=== PATIENT | female | born 1945 | race Caucasian/White ===

== ENCOUNTER 2016-12-31 12:30 | Inpatient (IN) ==
[2016-12-31] MEDS ORDERED: PHENERGAN IV ONE (12:46)
[2016-12-31] MEDS ORDERED: SODIUM CHLORIDE 0.9% INJ ONE ×2 (12:46)
[2016-12-31] MEDS ORDERED: PROTONIX IV ONE (12:46)
[2016-12-31 13:08] LABS: BASO% 0.1 % (0.0-0.8); HEMATOCRIT 39.5 % (37.0-47.0); HEMOGLOBIN 12.7 g/dL (12.0-16.0); IMM GRAN# 0.07 X1000 (0.0-0.04); IMM GRAN% 0.3 % (0.0-0.5); LYMPH# 1.57 X1000 (1.2-3.4); LYMPH% 6.3 % (20.5-51.1); MANUAL DIFF NEEDED? NO; MCH 34.6 PG (27-31); MCHC 32.2 g/dL (33-37); MCV 107.6 FL (81-99); MONO# 1.07 X1000 (0.11-0.59); MONO% 4.3 % (1.7-9.3); MPV 11.4 FL (7.4-10.4); PLT 184 X1000 (130-400); RBC 3.67 XMIL (4.2-5.4)
[2016-12-31 13:20] LABS: ALBUMIN 3.5 g/dL (3.5-5.0); CALCIUM 8.6 mg/dL (8.8-10.2); MAGNESIUM 1.9 mg/dL (1.5-2.7); POTASSIUM 4.1 mmol/L (3.5-5.1); TOTAL BILIRUBIN 0.3 mg/dL (0.20-1.00); TOTAL PROTEIN 6.9 g/dL (6.3-8.3)
--- NOTE | 2016-12-31 13:24 | PROVIDER DOCUMENTATION ---
HPI-Abdominal Pain/GI Problem - General Chief Complaint: N/V/D Stated Complaint: RLQ PAIN Time Seen by Provider: 12/31/16 12:34 Source: patient Allergies/Adverse Reactions: Patient Allergies Allergy/AdvReac Type Severity Reaction Status Date / Time No Known Allergies Allergy Verified 12/31/16 12:56 Home Medications: Home Medication List Medication Instructions Recorded Confirmed Last Taken Type Alprazolam [Xanax] 0.5 mg PO TID 05/17/16 07/04/16 07/03/16 21:00 History Aspirin 81 mg PO DAILY 05/17/16 07/04/16 07/03/16 09:00 History Citalopram Hydrobromide [Celexa] 10 mg PO DAILY 05/17/16 07/04/16 07/03/16 09: 00 History Clopidogrel Bisulfate [Plavix] 75 mg PO DAILY 05/17/16 07/04/16 07/03/16 09:00 History Docusate Sodium [Colace] 100 mg PO DAILY 05/17/16 07/04/16 07/03/16 09:00 History Folic Acid 1 mg PO DAILY 05/17/16 07/04/16 07/03/16 09:00 History Hydrocodone/APAP 7.5 mg/325 mg 2 tab PO Q8H PRN PRN 05/17/16 07/04/16 06/09/16 05:00 History [[place]-7.5] Lactobacillus Rhamnosus GG 1 each PO DAILY 05/17/16 07/04/16 07/03/16 09:00 History [Probiotic] Metoprolol Tartrate 12.5 mg PO BID 05/17/16 07/04/16 07/03/16 21:00 History Midodrine HCl 5 mg PO TID 05/17/16 07/04/16 07/03/16 21:00 History Pravastatin Sodium 40 mg PO HS 05/17/16 07/04/16 07/03/16 21:00 History Trazodone HCl 50 mg PO HS 05/17/16 07/04/16 07/03/16 21:00 History Nut.tx.impaired Renal Fxn,Soy 237 ml PO DIRECTED 06/10/16 07/04/16 07/03/16 09:00 History [Nepro Carb Steady] - History of Present Illness-ABD Nature of Presenting Problems: 71 yo WF complains of several days of N/V and diarrhea. She has ESRD and was dialyzed yesterday. They prescribed some medication which improved her diarrhea and nausea. She comes in today because she has developed epigastric pain now despite some moderate improvement in nausea/diarrhea. Abdominal Pain Onset Location: reports: epigastric Pain Radiation: reports: no radiation Quality of Pain: reports: aching, fullness, sharp Severity in ED: reports: moderate Timing: reports: still present Activities at Onset: reports: none Exposure to sick contacts?: No Modifying Factors: worse with: coughing, eating, movement Associated Symptoms: reports: diarrhea, nausea. denies: anxiety, chest pain, constipation, cough, shortness of breath Last BM: unsure Dark Stools Present?: reports: none noticed Rectal Bleeding: denies: none Emesis Description: denies: red blood, coffee grounds Bruising or Bleeding Gums?: No Similar Symptoms Previously?: No Recently seen or treated by another doctor?: Yes Review of Systems - Adult - REVIEW OF SYSTEMS - ADULT Constitutional: reports: no symptoms reported Eyes: reports: no symptoms reported Ears, Nose, Mouth & Throat: reports: no symptoms reported Cardiovascular: reports: no symptoms reported Respiratory: reports: no symptoms reported Gastrointestinal: reports: abdominal pain, diarrhea, nausea, poor appetite, vomiting. denies: hematemesis, constipation Genitourinary: reports: no symptoms reported Musculoskeletal: reports: no symptoms reported Integumentary: reports: no symptoms reported Neurological: reports: no symptoms reported Past History - Adult - PAST MEDICAL HISTORY-ADULT Review of Records: reports: Old Records Reviewed, Nursing Assessment Review, Medications Reviewed, Social history reviewed & non-contributory. Major Childhood Illnesses: reports: denies history Cardiovascular: reports: HTN Respiratory: reports: COPD Gastrointestinal: reports: GERD, IBS, other (gastritis) Obstetrical/Gynecological: reports: other (breast cancer/ left mastectomy) Genitourinary: reports: dialysis (MWF), ESRD, kidney disease Musculoskeletal: reports: arthritis, other (gout) Neurological: reports: other (metabolic encephalopathy) Endocrine/Immune: reports: anemia Other Conditions: reports: denies history - PRIOR SURGERIES/PROCEDURES Surgical/Procedure History: reports: cholecystectomy, other (mastectomy left with reconstruction) - PRIOR HOSPITALIZATIONS Prior Hospitalizations: reports: none - IMMUNIZATION STATUS Childhood Immunizations: See Nurse Assessment Flu Vaccine: See Nurse Assessment - FAMILY HISTORY Family History: reviewed, not pertinent - SOCIAL HISTORY Smoking: denies Substance Use: none/never Alcohol Use Frequency: never Living Situation: care facility Physical Exam-General - PHYSICAL EXAM-ADULT Initial Vital Signs Reviewed: Yes - CONSTITUTIONAL General Appearance: no apparent distress, obese - EYES Eyes: PERRL/EOMI - HEAD, EARS, NOSE, MOUTH & THROAT HENMT: normocephalic/atraumatic, moist mucous membranes, normal ENT inspection - NECK Neck: non-tender - RESPIRATORY Respiratory: lungs clear, normal breath sounds, no pleuratic chest pain, no respiratory distress, no accessory muscle use - CARDIOVASCULAR Cardiovascular: normal peripheral pulses, regular rate, rhythm, no edema - GASTROINTESTINAL (ABDOMEN) Abdominal Exam: normal bowel sounds, guarding, tenderness. negative: rigid - MUSCULOSKELETAL Back Exam: normal inspection, no CVA tenderness, no vertebral tenderness Extremity: no pedal edema, no calf tenderness - SKIN Integumentary: normal color, normal turgor - NEUROLOGIC Neurologic: grossly normal - PSYCHIATRIC Psych/Mental Status: normal mood/affect, normal thought content, normal thought process, oriented x 3 Progress - PLAN OF CARE/RESULTS Progress/Plan/Lab Results: Vital Signs - 8 hr 12/31/16 12:46 Pulse Rate 72 Respiratory Rate 14 Blood Pressure 109/55 O2 Sat by Pulse Oximetry 94 L Laboratory Results - last 24 hr 12/31/16 12:39 WBC 24.93 H RBC 3.67 L Hgb 12.7 Hct 39.5 MCV 107.6 H MCH 34.6 H MCHC 32.2 L RDW Std Deviation 14.4 Plt Count 184 MPV 11.4 H Immature Gran % (Auto) 0.3 Neut % (Auto) 89.0 H Lymph % (Auto) 6.3 L [place] % (Auto) 4.3 Eos % (Auto) 0.0 Baso % (Auto) 0.1 Immature Gran # (Auto) 0.07 H Neut # (Auto) 22.20 H Lymph # (Auto) 1.57 [place] # (Auto) 1.07 H Eos # (Auto) 0.00 Baso # (Auto) 0.02 Orders Category Date Time Status AMYLASE [CHEM] Stat Lab 12/31/16 12:39 Received CBC WITH ELECTRONIC DIFF [HEME] Stat Lab 12/31/16 12:39 Completed COMPREHENSIVE METABOLIC PANEL [CHEM] Stat Lab 12/31/16 12:39 Received LIPASE [CHEM] Stat Lab 12/31/16 12:39 Received MAGNESIUM [CHEM] Stat Lab 12/31/16 12:39 Received phos [PHOSPHORUS] [CHEM] Stat Lab 12/31/16 12:39 Received Pantoprazole [Protonix] Med 12/31/16 12:46 Discontinued 40 mg IV NOW ONE Promethazine [Phenergan] Med 12/31/16 12:46 Discontinued 12.5 mg IV NOW ONE Sodium Chloride 0.9% Med 12/31/16 12:46 Discontinued 10 ml INJ NOW ONE Sodium Chloride 0.9% Med 12/31/16 12:46 Discontinued 10 ml INJ NOW ONE Result Diagrams: 12/31/16 12:39 12/31/16 12:39 - CT/MRI 1 CT Study: Abdomen, Pelvis Impression: Abnormal, Discussed w/Radiology CT Results: ischemic gut Departure - Departure Time of Disposition Decision: 15:28 DIAGNOSIS: Ischemic colitis, Renal failure, ESRD (end stage renal disease) on dialysis Abdominal pain Qualifiers: Abdominal location: epigastric Qualified Code(s): R10.13 - Epigastric pain Disposition: ADMITTED INPATIENT 09 Certified Medical Emergency: Emergent Condition: Serious Referrals and Follow-Ups: None,PCP [Primary Care Provider] - - Critical Care Note This patient required my direct & personal management of CC.: No
--- NOTE | 2016-12-31 15:12 | Diag Imaging Result Document ---
PROCEDURE NAME: ABDOMEN/PELVIS W/O CONTRAST - 12/31/2016 CT ABDOMEN AND PELVIS WITHOUT CONTRAST: COMPARISON: None available. FINDINGS: There is bibasilar atelectasis plus or minus superimposed infiltrate , more prominent on the right. There is wall thickening and extensive inflammatory stranding associated with the ascending colon and the hepatic flexure consistent with colitis. At the proximal transverse colon, there is evidence of pneumatosis coli. There is [id number] distention of the transverse colon with a few small air-fluid levels. There is no small bowel distention. These findings suggests colitis. Ischemic colitis cannot be excluded. There is also a gas seen mainly in the left hepatic lobe that is probably in portal venous branches related to the pneumatosis mentioned above. Both kidneys are very atrophic. Note that this has worsened as compared to a previous CT of the chest dated 12/24/2015. There is patchy moderate atherosclerotic calcification involving the abdominal aorta. There appears to have been a prior cholecystectomy. No free abdominal gas is identified. The remainder of the solid viscera of the abdomen and pelvis and the remainder of the GI tract is essentially unremarkable. IMPRESSION: 1. Thickening of the ascending colon wall as well as the hepatic flexure wall with surrounding inflammatory changes as well as pneumatosis coli involving the proximal transverse colon compatible with colitis. Ischemic colitis cannot be excluded. 2. Intrahepatic gas that may be in portal branches and probably related to the pneumatosis coli mentioned above. 3. Bibasilar atelectasis plus or minus superimposed infiltrate. 4. Renal atrophy that has worsened since the prior chest CT that is fairly recent. This critical result was reported to Dr. Abraham in the Emergency Department at 1449 hours. [facility]
[2016-12-31] MEDS ORDERED: ZOSYN 2.25 GM/NS 2.25 GM/50 ML IVPB IV SCH (16:00)
[2016-12-31] MEDS ORDERED: NS 500 ML ONE (16:38)
[2016-12-31 16:46] LABS: ALLEN TEST NO; BE -1.7 mmoll (-3.0-3.0); BLOOD TYPE ARTERIAL; DRAW SITE L BRACHIAL; O2(CT) 16.3 mL/dL (15.0-23.0); SAMPLE BLOOD; SAO2 96.6 % (95.0-100.0); THB 12.1 g/dL (11.5-17.4); pH(98.6) 7.29 (7.35-7.45)
[2016-12-31 16:48] LABS: MODALITY CANNULA; PCO2(98.6) 53 mmHg (35-45)
[2016-12-31 16:49] LABS: PO2(98.6) 105 mmHg (60-100)
[2016-12-31] MEDS: MERREM 500 MG in NS 50 ML IV SCH (16:50)
[2016-12-31] MEDS ORDERED: ALBUMIN 25% ONE (17:42)
--- NOTE | 2016-12-31 17:45 | HISTORY AND PHYSICAL ---
PRIMARY CARE PHYSICIAN: SYEDA Juarez. CHIEF COMPLAINT: Abdominal pain. HISTORY OF PRESENT ILLNESS: Mrs. Marino is a very pleasant 71-year-old female, well known to our service, she has a history of breast cancer, COPD, ESRD, COPD, and others, who presents on from her [facility] with a fairly acute onset of abdominal pain that began yesterday evening. She describes a very sharp right upper quadrant pain that is unrelenting and radiating to her back. This is associated with vomiting. She denies any fever or chills. She has had no chest pain or shortness of breath. She also reports some diarrhea but denies any hematemesis or hematochezia. The pain brought her to the ER today. In the ER, she was noted to have a white count of 24 with a creatinine of 5.6. A CT of the abdomen and pelvis showed pneumatosis coli involving the proximal transverse colon compatible with colitis. There was intrahepatic gas in the portal branches and probably related to pneumatosis coli, and there is also bibasilar atelectasis plus or minus superimposed infiltrate. We have consulted Dr. Jovel with General Surgery. He was at the bedside now and we have obtained blood cultures, and we will start broad- spectrum antibiotics and keep the patient n.p.o. Currently she is hemodynamically stable but we will be placing her in the ICU. PAST MEDICAL HISTORY: 1. ESRD on hemodialysis, followed by Dr. Hollingsworth. 2. COPD. 3. Anemia of chronic disease. 4. Dementia. 5. Breast cancer. 6. Colon cancer. 7. Anxiety. 8. GERD. 9. Gout. 10. History of CVA. SURGICAL HISTORY: She has had a hysterectomy, cholecystectomy, left breast biopsy, left upper extremity fistula, left mastectomy, right ankle surgery. FAMILY HISTORY: Noncontributory. ALLERGIES: No known drug allergies. SOCIAL HISTORY: There is no history of tobacco, alcohol or drug use. She is a resident of a local [facility]. ALLERGIES: No known drug allergies. HOME MEDICATIONS: Xanax 0.5 mg as directed. Aspirin 81 mg daily. Citalopram 10 mg daily. Clopidogrel 75 mg daily. Colace 100 mg daily. Folic acid 1 mg daily. Switchback 15 mg every 8 hours as needed for pain. Lactobacillus every day. Metoprolol tartrate 12.5 mg b.i.d. Midodrine 5 mg 3 times daily. Pravastatin 40 mg at bedtime. Trazodone 50 mg at bedtime. REVIEW OF SYSTEMS: A 14 point review of systems obtained and found to be negative with the exception of the HPI. PHYSICAL EXAMINATION: VITAL SIGNS: Blood pressure is 125/69, heart rate 78, respiratory rate 16, O2 saturations 99% on room air. GENERAL: This is an obese female, lying in hospital bed, in no acute distress. NEUROLOGIC: The patient is a little bit drowsy from pain medication and antiemetics but she does follow commands. No focal deficits. HEENT: Head is atraumatic and normocephalic. Her pupils are equal, round, and reactive to light. Oral mucosa is moist. Trachea is midline. CHEST: Clear to auscultation bilaterally. CV: Regular rate and rhythm. S1-S2 is noted. No murmurs, gallops, clicks, or rubs. GI: Diffusely tender in the right upper quadrant. Her belly is somewhat firm. Bowel sounds are hypoactive. EXTREMITIES: Trace edema. Diminished but palpable bilateral pulses. DIAGNOSTIC DATA: CT of the abdomen: Please see HPI. WBC 24.5, hemoglobin 12.7, hematocrit 39.5, MCV 107.6, platelet count 184,000. ABG on nasal cannula; pH 7.29, CO2 53, O2 105, bicarb 23.6, lactate 0.9. Sodium 134, potassium 4.1, chloride 92, CO2 23, anion gap 19, BUN 45, creatinine 5.6, glucose 132, phosphorus 2.4, magnesium 1.9. Bilirubin 0.3, AST 23, ALT 17, alkaline phosphatase 112, albumin 3.5, lipase 8. ASSESSMENT AND PLAN: 1. Colitis/pneumatosis coli/pneumobilia: There is a concern for ischemic colitis. We have obtained blood cultures and lactic acid and those are currently pending. We will start meropenem, and Surgery has already been consulted and is currently at the bedside. We will keep her n.p.o. and transfer her to the ICU. 2. Leukocytosis: No other evidence of systemic infection at this time. However we will start broad-spectrum antibiotics and culture her blood and sputum. 3. End stage renal disease on hemodialysis: Followed by Dr. Hollingsworth. We will consult him for ESRD management and help with general medical management. Currently, her hemoglobin and hematocrit is stable. She is slightly acidotic but overall stable. 4. Macrocytosis: We will check B12, folate and thyroid and treat accordingly. 5. Deep venous thrombosis with SCDs and TEDs given the likelihood of surgery. Further recommendations to follow. Dictated by SYEDA Jain for Constantino Briscoe MD cc: SYEDA Jain MD
[2016-12-31 17:53] LABS: INR 1.04; PROTIME 10.9 Seconds (9.2-11.7)
--- NOTE | 2016-12-31 18:49 | CONSULTATION ---
DATE OF CONSULTATION: 12/31/2016 REQUESTING PHYSICIAN: Dr. Clemons. CONSULT CONCERNING: Possible ischemic bowel. HISTORY OF PRESENT ILLNESS: A 71-year-old female with multiple medical comorbidities presenting with abdominal pain starting several days ago. She came to the ER today with increasing epigastric pain. She is somewhat altered and it is difficult to get a full history of the details but it sounds like this has been going on for several days. Did discuss her course with her son Dr. Marino, who said that she is more altered and she does not complain of significant amount of pain, said she has been hurting for several days. She was evaluated in emergency department, had a CT scan that showed pneumobilia and pneumatosis and intestinalis concerning for ischemic colon and her blood pressure was in the 80s systolic in the emergency department and she was acidotic on ABG. When I evaluated the patient she is still reporting pain but again unable to give further history given her altered mental status. PAST MEDICAL HISTORY: Includes end-stage renal disease, COPD, anemia of chronic disease, history of colon cancer, history of breast cancer, history anxiety disorder, gastroesophageal reflux disease, gout, dementia, recent myocardial infarction with stents placed, hypertension. PAST SURGICAL HISTORY: Includes cholecystectomy, left mastectomy with what appears to be rectus abdominis muscle reconstruction, left upper extremity AV fistula, hysterectomy, right ankle surgery. FAMILY HISTORY: Positive for hypertension, alcohol abuse, stroke and breast cancer. ALLERGIES: None reported. HOME MEDICATIONS: Xanax, aspirin, Celexa, Plavix, Colace, folic acid, [place], probiotic, metoprolol, midodrine, pravastatin, trazodone. REVIEW OF SYSTEMS: Difficult to obtain secondary to patient's mental status. PHYSICAL EXAM: Vital Signs: The patient is currently afebrile. Most recent heart rate was in the 80s, most recent blood pressure in the 90s systolic, O2 saturation 100% on 2 L nasal cannula, respiratory rate nonlabored at 14. General: No acute distress but appears to be uncomfortable but is slightly altered in her mental status. HEENT: Normocephalic, atraumatic. Pupils equal, round, reactive to light. Mucous membranes moist. Oropharynx benign. Neck: Supple. Trachea midline. Cardiovascular: Regular rate and rhythm. Lungs: Grossly clear. Abdomen: Soft. Peritoneal signs in the right upper quadrant on the right side. Previous surgical scars noted. Extremities: Palpable left upper extremity AV graft noted with flow through it. Remainder of extremities within normal limits. Vascular: All extremities perfused. Skin: No signs of jaundice. LABORATORY: White blood cell count 24, hematocrit 39, platelet count 184,000. ABG pH is 7.29, CO2 is 53, bicarb 23, lactic acid 0.9. Chemistry reviewed. CT scan independently reviewed and radiology report reviewed. Patient does have what appears to be pneumatosis intestinalis and pneumobilia concerning for ischemic colon on the right side of the ascending colon. ASSESSMENT AND PLAN: A 71-year-old female with multiple medical comorbidities presenting now with peritoneal signs, potential developing sepsis and possible ischemic bowel. 1. Multiple medical comorbidities. At this time, patient is to be admitted postoperatively to the ICU. She is being admitted by the hospitalist. I had a lengthy discussion with her son [place], who understands the risk for perioperative morbidity and mortality given her risk and she has got recent myocardial infarction on Plavix, chronic obstructive pulmonary disease and dialysis. This does complicate her overall clinical picture but given her peritoneal signs and overall picture she does need surgical intervention. He understands this. 2. Potential for developing sepsis. At this time patient is acidotic, has leukocytosis and is hypotensive. She is to be resuscitated and we are planning on taking her to the operating room. 3. Possible ischemic bowel. At this time CT scan is concerning. Her physical exam is concerning. Her white blood cell count being elevated with her acidosis is concerning. She is on a beta-brennan which may limit her rebound tachycardia given her hypotension. Overall her morbidity from this procedure is relatively high. Discussed with the son. She has also had previous abdominal surgery with a TRAM flap which makes potential for herniae also elevated. Discussed with the patient's son that she may need ileostomy. Discussed all these with the risks, benefits, alternatives for the procedure. Will plan on surgical intervention. cc: Stevo Jovel MD
[2016-12-31 19:02] LABS: URINE SOURCE CATH
[2016-12-31 19:12] LABS: BILIRUBIN URINE NEGATIVE (NEGATIVE); BLOOD URINE MODERATE (NEGATIVE); COLOR BROWN; GLUCOSE URINE NEGATIVE (NEGATIVE); LEUKOCYTES URINE LARGE (NEGATIVE); NITRITE URINE NEGATIVE (NEGATIVE); PH URINE 6.5; PROTEIN URINE 300 mg/dL (NEGATIVE); SP GRAVITY URINE 1.017; TURBIDITY URINE TURBID (CLEAR); UR EPITHELIAL CELLS >10 /HPF (<10); URINE BACTERIA 4+ /HPF; URINE MICRO REVIEW NEEDED? YES; URINE WBC TNTC /HPF (<10); UROBILINOGEN URINE NORMAL (NORMAL)
[2016-12-31 19:13] LABS: URINE CASTS NONE SEEN
[2016-12-31 20:16] LABS: ALLEN TEST YES; BE -3.3 mmoll (-3.0-3.0); BLOOD TYPE ARTERIAL; DRAW SITE R RADIAL; METHB 0.2 % (0.0-1.5); O2(CT) 14.8 mL/dL (15.0-23.0); PCO2(98.6) 35 mmHg (35-45); PO2(98.6) 365 mmHg (60-100); SAMPLE BLOOD; SAO2 95.4 % (95.0-100.0); SRATE 12 BPM; THB 10.3 g/dL (11.5-17.4); TVOL 500 mL; pH(98.6) 7.39 (7.35-7.45)
[2016-12-31 20:17] LABS: MODALITY VENTILATOR
[2016-12-31] MEDS ORDERED: VERSED ONE (20:24)
--- NOTE | 2016-12-31 20:28 | OPERATIVE NOTE ---
PROCEDURE DATE: 12/31/2016 PREOPERATIVE DIAGNOSES: 1. Abdominal pain. 2. Pneumatosis intestinalis. 3. Portal venous gas. POSTOPERATIVE DIAGNOSIS: Ischemic transverse colon. PROCEDURES: 1. Exploratory laparotomy. 2. Extended right hemicolectomy with end ileostomy. SURGEON: Stevo Jovel MD. POWER BRAKE OPERATOR: None. ANESTHESIA: General endotracheal. INTRAOPERATIVE FINDINGS: Ischemia of the hepatic flexure to the transverse colon. COMPLICATIONS: None at time of dictation. ESTIMATED BLOOD LOSS: 100 mL. SPECIMENS REMOVED: Right colon. BRIEF HISTORY: The patient is a 71-year-old female with multiple medical comorbidities who presented with a 24 hour history of abdominal pain. She had been evaluated in the emergency department and found to have a potential for ischemic bowel. She was developing a sepsis like picture and it was felt the patient would benefit from exploratory laparotomy. Discussed extensively with the family. All questions were answered. DESCRIPTION OF PROCEDURE: After informed consent was obtained, patient was brought to the operative theatre, transferred to operating table, placed in supine position. General endotracheal anesthesia was then performed without complication. A formal time- out was then performed confirming patient, date, and procedure. All were in agreement. At that time, attention was given to the abdomen. The patient did have a previous TRAM flap which made her abdominal landmarks slightly altered. We made a standard midline incision through her abdominal wall to enter into the abdomen. Upon entry into the abdomen, we did encounter some ischemia of the transverse colon. We mobilized the transverse colon of the right colon completely by mobilizing the white line of [place] on the lateral wall. There was ischemia in the transverse colon with some patchy areas of ischemia all way to the hepatic flexure. The ischemia extended beyond the middle colic on the right. Given her tenuous hemodynamic status. We elected to resect her whole right colon and not to place an anastomosis. We transected the small bowel 5 cm in vivo from the ileocecal valve and transected the colon distal to the ischemic areas which was also distal to the middle colic artery. We used a SWATHI stapler for this. We then used the LigaSure to take down the mesentery of the colon. Once we had done this, we maintained hemostasis with electrocautery. We reviewed the remaining aspects of the abdomen including the splenic flexure. There appeared to be no other areas of ischemia that we could see. We irrigated out the abdomen copiously. We closed the fascia although it was very tenuous given her previous TRAM flap with interrupted Vicryl sutures. Prior to closure, we did create an ostomy just to the right lower quadrant for the ileum. This was made 2 fingerbreadths in size. We made sure the bowel was not twisted. We had to reclose the abdomen. We made it into the lateral border of the rectus. We made it two finger breadths in diameter. We brought the terminal ileum through the hole without twisting it. After we had closed the midline completely, we matured the ostomy and broke the ileostomy in a standard fashion. The patient had sterile dressings applied. Ostomy appliance applied. She was transferred back to the ICU still in critical condition. Postoperatively, we will monitor her closely. She will likely need to continue her Plavix given the fact that she had a recent drug-eluting stent placed. This will likely have to be placed through her NG tube. cc: Stevo Jovel MD MTDD
[2016-12-31] MEDS ORDERED: ASPIRIN PR ONE (20:47)
--- NOTE | 2016-12-31 20:52 | Diag Imaging Result Document ---
PROCEDURE NAME: CHEST/ABD TUBE PLACEMENT - 12/31/2016 COMPARISON: Chest radiograph dated 06/09/2016. FINDINGS: There is a recently placed ET tube and NG tube. The NG tube projects well below the diaphragm and appears to be coiled within the stomach in the expected position. The ET tube projects over the trachea and above the vijaya at about the T4 level. The lungs are over exposed limiting the diagnostic quality for evaluation of the lung parenchyma. IMPRESSION: Recent placement of ET tube and NG tube in the expected positions as described.
[2016-12-31 21:04] LABS: BASO% 0.1 % (0.0-0.8); EOS# 0.05 X1000 (0.0-0.7); EOS% 0.3 % (0.0-10.0); HEMATOCRIT 40.5 % (37.0-47.0); HEMOGLOBIN 12.9 g/dL (12.0-16.0); IMM GRAN# 0.05 X1000 (0.0-0.04); IMM GRAN% 0.3 % (0.0-0.5); LYMPH# 1.97 X1000 (1.2-3.4); MANUAL DIFF NEEDED? YES; MCH 34.8 PG (27-31); MCHC 31.9 g/dL (33-37); MCV 109.2 FL (81-99); MONO# 1.11 X1000 (0.11-0.59); MONO% 5.6 % (1.7-9.3); MPV 11.3 FL (7.4-10.4); NEUT% 83.7 % (42.2-75.2); PLT 151 X1000 (130-400); RBC 3.71 XMIL (4.2-5.4)
[2016-12-31 21:39] LABS: BANDS 20 % (0-1); LYMPHS 6 % (21-51); MONO 4 % (1-9)
[2016-12-31 21:42] LABS: POTASSIUM 3.6 mmol/L (3.5-5.1)
[2016-12-31] MEDS: DIPRIVAN 1% 1,000 MG/100 ML BOTTLE IV SCH (22:00)
[2016-12-31] MEDS ORDERED: NS 250 ML ONE (22:21)
[2016-12-31] MEDS ORDERED: NS 250 ML IV ONE (22:21)
[2016-12-31] MEDS: MORPHINE IV PRN (23:00)
[2016-12-31] MEDS: LEVOPHED 8 MG in D5 1/2 NS 250 ML IV SCH (23:09)
[2017-01-01] MEDS ORDERED: DILAUDID IV ONE (00:15)
[2017-01-01] MEDS ORDERED: NS 500 ML IV ONE (00:16)
[2017-01-01] MEDS: MERREM 500 MG in NS 50 ML IV SCH ×3 (00:52→15:55)
[2017-01-01] MEDS: DIPRIVAN 1% 1,000 MG/100 ML BOTTLE IV SCH ×5 (02:31→19:13)
[2017-01-01] MEDS: LEVOPHED 8 MG in D5 1/2 NS 250 ML IV SCH ×5 (04:08→23:10)
[2017-01-01 04:39] LABS: ALLEN TEST YES; BE -2.4 mmoll (-3.0-3.0); BLOOD TYPE ARTERIAL; DRAW SITE R RADIAL; O2(CT) 14.8 mL/dL (15.0-23.0); PCO2(98.6) 29 mmHg (35-45); PO2(98.6) 183 mmHg (60-100); SAMPLE BLOOD; SAO2 98.9 % (95.0-100.0); SRATE 12 BPM; THB 10.4 g/dL (11.5-17.4); TVOL 500 mL; pH(98.6) 7.46 (7.35-7.45)
[2017-01-01 04:44] LABS: MODALITY VENTILATOR
[2017-01-01 05:55] LABS: CALCIUM 8.1 mg/dL (8.8-10.2); POTASSIUM 3.4 mmol/L (3.5-5.1)
[2017-01-01 06:03] LABS: BASO% 0.2 % (0.0-0.8); EOS# 0.06 X1000 (0.0-0.7); EOS% 0.3 % (0.0-10.0); HEMATOCRIT 31.7 % (37.0-47.0); HEMOGLOBIN 10.4 g/dL (12.0-16.0); IMM GRAN# 0.04 X1000 (0.0-0.04); IMM GRAN% 0.2 % (0.0-0.5); LYMPH# 2.12 X1000 (1.2-3.4); LYMPH% 11.8 % (20.5-51.1); MANUAL DIFF NEEDED? YES; MCH 34.7 PG (27-31); MCHC 32.8 g/dL (33-37); MCV 105.7 FL (81-99); MONO# 0.93 X1000 (0.11-0.59); MONO% 5.2 % (1.7-9.3); MPV 11.8 FL (7.4-10.4); NEUT% 82.3 % (42.2-75.2); PLT 183 X1000 (130-400)
[2017-01-01] MEDS: NS 1,000 ML IV SCH ×2 (06:58→19:10)
[2017-01-01 07:51] LABS: BANDS 7 % (0-1); LYMPHS 11 % (21-51); MONO 3 % (1-9)
--- NOTE | 2017-01-01 08:08 | PROGRESS NOTE ---
DATE: 01/01/2017 SUBJECTIVE: The patient required Levophed through the course of the night. She has remained intubated on the ventilator. She has also had some boluses of Diprivan to keep her sedated. They are having difficultly to access for IV, so I placed a central line. OBJECTIVE: Vital Signs: Most recent temperature 98.5, most recent pulse 53, most recent respiratory rate 16, blood pressure 99/53. She currently had Levophed given. O2 saturation 100% on the ventilator. General examination: Sedated on the ventilator. Cardiovascular: Regular rate and rhythm. Lungs: Referred airway noises. Abdomen: Soft, nondistended. Ostomy appears viable with weeping noted. LABORATORY: This morning her white blood cell count is 19, hematocrit is 31.7, platelet count 183,000. ASSESSMENT AND PLAN: A 71-year-old female, status post open right hemicolectomy. Postoperative state at this time, she is still requiring some intermittent Levophed. I did place a central line to help with her IV resuscitation. She is end-stage renal disease patient who takes dialysis and Nephrology has been consulted. We have also started her on Plavix down her NG tube. Cardiology has been consulted. She does have a recently placed drug-eluting stent. We will continue to monitor her closely. Continue current treatment. Continue antibiotics as prescribed. cc: Stevo Jovel MD
--- NOTE | 2017-01-01 08:13 | OPERATIVE NOTE ---
PROCEDURE DATE: 01/01/2017 PREOPERATIVE DIAGNOSES: 1. Hypertension. 2. Phlebosclerosis. POSTOPERATIVE DIAGNOSES: 1. Hypertension. 2. Phlebosclerosis. PROCEDURES: Ultrasound-guided right common femoral vein central line placement. SURGEON: Stevo Jovel MD. HAND SCREEN PRINTER: None. ANESTHESIA: Local, administered by the surgeon. INTRAOPERATIVE FINDINGS: Ultrasound showed a size common femoral vein on the right side sufficient to accommodate a central line. BRIEF HISTORY: The patient is a 71-year-old female, who I performed exploratory laparotomy on last night. She has been hypotensive and requires IV resuscitation. She also needed better IV access. It is felt that the patient would benefit from a central line placement. The risks, benefits, and alternatives were discussed. All questions answered. DESCRIPTION OF PROCEDURE: After informed consent was obtained from the son, the patient remained in her ICU bed. The right groin was prepped and draped sterile fashion. I used ultrasound to identify the right common femoral vein. Used local anesthetic to anesthetize the skin. I was able to cannulate under direct visualization with ultrasound the right common femoral vein. I passed a wire into it easily, dilated up using the Seldinger technique and placed a central line. All ports aspirated and flushed the blood easily. I secured it in place in a standard fashion. Placed a sterile dressing. The patient tolerated procedure well. Will remain in her ICU bed. cc: Stevo Jovel MD MTDD
[2017-01-01] MEDS: PLAVIX NG SCH (08:53)
[2017-01-01] MEDS: POTASSIUM CHLORIDE 20 MEQ/SWI 20 MEQ/100 ML IVPB IV SCH ×2 (08:53→10:37)
--- NOTE | 2017-01-01 09:19 | Diag Imaging Result Document ---
PROCEDURE NAME: CHEST-PORTABLE - 01/01/2017 SINGLE FRONTAL RADIOGRAPH OF THE CHEST: COMPARISON: 12/31/2016. FINDINGS: ET tube and NG tube are in stable position. Lung volumes are low and there is mild elevation of the right hemidiaphragm. There is suggestion of increased interstitial markings bilaterally suggesting perhaps mild interstitial edema. There is probably at least mild atelectasis at the right lung base. Cardiac silhouette is probably mildly prominent but stable. IMPRESSION: Mild increased interstitial markings bilaterally suggesting mild edema most likely and suggestion of right basilar atelectasis.
--- NOTE | 2017-01-01 11:56 | PROGRESS NOTE ---
DATE: 01/01/2017 SUBJECTIVE: This patient is on mechanical ventilation and sedated. No acute events overnight. She is on pressors because her blood pressure has been low. Yesterday, this patient had an exploratory laparotomy with extended right hemicolectomy with end ileostomy. OBJECTIVE: Vital Signs: Temperature 98.7 degrees, pulse on the monitor 63, respiratory rate 20, blood pressure 114/63, oxygen saturation 100% on mechanical ventilation 50% oxygen flow. HEENT: Head normocephalic. No trauma. PERRLA. Neck: Supple. No JVD. No masses. Central trachea. Chest: Clear to auscultation. No wheezing. No rales. Abdomen: Soft. Ileostomy on the right side that is working fine. Nondistended. Extremities: Trace edema. Diminished pulses but palpable. No cyanosis. Neurological Examination: The patient is on mechanical ventilation and sedated. Laboratory: WBC 17.9, hemoglobin 10, hematocrit 31.7, MCV 105.7, platelets 183,000. Sodium 136, potassium 3.4, chloride 102, bicarbonate 18, BUN 47, creatinine 5.6, glucose 130, calcium 8.1. ASSESSMENT AND PLAN: 1. Ischemic transverse colon, status post exploratory laparotomy with extended right hemicolectomy, with end ileostomy done yesterday. Abdomen looks fine. The ileostomy is working good. No distention. We will continue following the recommendations of the surgery department. 2. Leukocytosis. This is getting a little bit better. I will continue with the same antibiotics. Blood cultures, urine culture, and sputum culture so far negative. 3. Septic shock. Again, I will continue with the same management. This patient is on pressors and antibiotics. 4. End-stage renal disease, on hemodialysis. Followed by Dr. Hollingsworth. He has been consulted. We will follow his recommendations. 5. Macrocytosis. We will monitor. This is chronic. 6. Deep vein thrombosis prophylaxis. Continue with sequential compression devices and АНДРЕЙ hose. Probably, I will put this patient on anticoagulation either today in the afternoon or tomorrow morning, previous authorization of surgery department. cc: Constantino Briscoe MD
[2017-01-01] MEDS ORDERED: ALBUMIN 25% IV ONE (12:42)
[2017-01-01] MEDS ORDERED: VANCOMYCIN IV PER PHARMACY MISC SCH (13:45)
--- NOTE | 2017-01-01 14:54 | CONSULTATION ---
DATE OF CONSULTATION: 01/01/2017 REASON FOR CONSULTATION: Cardiology was consulted. Patient has known coronary artery disease, stent placement in the past, multiple medical problems, is on pressors, intubated. HISTORY OF PRESENT ILLNESS: History was obtained from the chart as patient is intubated and sedated. The patient is a 71-year-old lady who is Annabel Dickson's mother, has history of breast cancer, COPD, end-stage renal disease, coronary artery disease, status post stent placement to left anterior descending artery in February 2016. She presented to the emergency room with abdominal discomfort, underwent abdominal surgery for ischemic bowel and she had extended right hemicolectomy with end ileostomy for ischemic transverse colon on 12/31/2016. She is currently intubated, requiring pressors. Blood cultures are positive for gram positive cocci. REVIEW OF SYSTEMS: Could not be obtained from the patient. PAST MEDICAL HISTORY: 1. Coronary artery disease, status post stent placement to left anterior descending artery in February 2016. 2. COPD. 3. End-stage renal disease on dialysis. 4. Dementia. 5. Breast cancer. 6. Colon cancer. 7. Anxiety. 8. Gastroesophageal reflux disease. 9. Gout 10. History of CVA. PAST SURGERIES: Left breast biopsy, left upper extremity fistula, left mastectomy, right ankle surgery. CURRENT MEDICATIONS: Include Levophed drip, propofol, morphine, meropenem, Plavix 75, hydromorphone. ALLERGIES: She is not known to be allergic to any medication. PHYSICAL EXAMINATION: Vital signs: Blood pressure was 108/80. Jugular venous pressure could not be assessed. Heart: First and second heart sounds were heard. There was ejection systolic murmur. First and second heart sounds were heard. Lungs: There was few scattered wheeze. Abdomen: Recent abdominal surgery. Central nervous system: Could not be assessed. LABORATORY EXAMINATION: Revealed WBC 17.92, hemoglobin 10, hematocrit 31, platelet count of 183,000. Sodium 136, potassium 3.4, BUN 47, creatinine 5.6. Blood cultures positive for gram positive cocci. Electrocardiogram revealed normal sinus rhythm. ASSESSMENT AND PLAN: Ms. Weston Marino is a 71-year-old lady with history of coronary artery disease status post stent placement to left anterior descending artery, end-stage renal disease on dialysis, underwent surgery with hemicolectomy right with end ileostomy for ischemic transverse colon. She is currently intubated, sedated and is on pressors for pressure control. She is on antibiotics. Blood cultures have grown gram positive cocci further testing pending. From a cardiac standpoint, we will get an echocardiogram to assess cardiac and valvular function. Continue with current medications. She has end-stage renal disease on dialysis. I have not made any other changes to her medication. Thank you for the consult. Will follow hospital course. cc: Moncho Story MD
[2017-01-01] MEDS ORDERED: VANCOMYCIN 1 GM/NS 1 GM/250 ML IVPB IV ONE (15:00)
--- NOTE | 2017-01-01 17:13 | CONSULTATION ---
DATE OF CONSULTATION: 01/01/2017 I want to thank you very much for asking me to see this very unfortunate 71-year-old female. DIAGNOSIS: 1. Septic shock secondary to ischemic colitis. 2. Respiratory failure. 3. Status post terminal ileostomy secondary to ischemic colitis with colectomy. 4. Chronic renal insufficiency, on dialysis. 5. History chronic obstructive pulmonary disease. 6. History of shock. RECOMMENDATIONS: Will volume expand her gently, mechanically ventilate her. She is on broad- spectrum antibiotics and monitor her gas exchange, work of breathing, and hemodynamics for stability for an opportunity to wean. Will follow closely along with you. HISTORY: This very unfortunate 71-year-old female, is not being good baseline health. She was in a senior living and developed abdominal pain. Found to have an ischemic colitis and was taken to the operating room yesterday with a colectomy. Subsequent to this, she returned to the ICU on mechanical ventilation. I am consulted to assist in her care. She is requiring pressors, as well as fluids, mechanical ventilation, now she is anuric. MEDICAL HISTORY: Positive for chronic hemodialysis, while followed by Dr. Hollingsworth. Chronic obstructive pulmonary disease, dementia, breast cancer, history of colon cancer, history of gout, history of cerebrovascular accident, history of protein calorie malnutrition, and dementia. SOCIALLY: She lives in a senior living. Has family. REVIEW OF SYSTEMS: Except for the features mentioned above, are positive for weakness, weight loss, and some anorexia. No ENT symptoms of odynophagia, dysphagia, epistaxis, or painful swallowing. No eye symptoms of blindness, blurring, or diplopia. No other cardiac or pulmonary symptoms, other than mentioned. No nausea, vomiting, constipation, or diarrhea. No hematuria, polyuria, nocturia, or dysuria. No joint or muscle pain or stiffness or swelling. No skin rash, itching, bruises. No seizures, loss consciousness, paralysis, except for the features mentioned above. All other symptoms on the review of systems are negative. FAMILY HISTORY: Noncontributory. PHYSICAL EXAMINATION: General Appearance: This unfortunate elderly lady shows a blood pressure of 108/64, with a pulse of 86, respirations of 12, temperature 98.8 degrees. HEENT Examination: Reveals a akins shaped face with some scleral edema. She is nonicteric. Neck: Supple. Chest: Reveals bilateral mechanically generated breath sounds with crackles or rhonchi. Cardiac examination: Reveals a regular rhythm without an appreciable murmur. Abdomen: Soft. Postoperative, nontender, no hepatosplenomegaly. Extremities: Reveal no evidence of cyanosis, clubbing, or edema. Neurological: Neurologically she is sedated, nonfocal. The sodium is 136, potassium 3.4, chloride 102, CO2 18. BUN 42, creatinine 5.6, glucose 130. White count was 17,900, hemoglobin 10.8, hematocrit 31.4, platelets 186,000. The ABG shows a 7.46 pH, with a 29 CO2 and 138 O2. The chest radiograph shows ET tube and NG tube in position. Cardiomegaly with bilateral pulmonary edema.
[2017-01-02] MEDS: MERREM 500 MG in NS 50 ML IV SCH ×3 (01:06→17:18)
[2017-01-02] MEDS: DIPRIVAN 1% 1,000 MG/100 ML BOTTLE IV SCH ×6 (01:06→20:42)
[2017-01-02] MEDS: LEVOPHED 8 MG in D5 1/2 NS 250 ML IV SCH ×4 (03:23→20:43)
[2017-01-02 04:33] LABS: ALLEN TEST YES; BLOOD TYPE ARTERIAL; DRAW SITE R RADIAL; O2(CT) 12.6 mL/dL (15.0-23.0); PCO2(98.6) 35 mmHg (35-45); PO2(98.6) 135 mmHg (60-100); SAMPLE BLOOD; SAO2 98.6 % (95.0-100.0); SRATE 12 BPM; THB 8.9 g/dL (11.5-17.4); TVOL 500 mL; pH(98.6) 7.29 (7.35-7.45)
[2017-01-02 04:34] LABS: MODALITY VENTILATOR
[2017-01-02 05:10] LABS: HEMATOCRIT 29.7 % (37.0-47.0); HEMOGLOBIN 9.7 g/dL (12.0-16.0); MCH 34.4 PG (27-31); MCHC 32.7 g/dL (33-37); MCV 105.3 FL (81-99); MPV 11.2 FL (7.4-10.4); RBC 2.82 XMIL (4.2-5.4)
[2017-01-02 05:17] LABS: CALCIUM 8.1 mg/dL (8.8-10.2); POTASSIUM 3.6 mmol/L (3.5-5.1)
--- NOTE | 2017-01-02 06:02 | EKG Report ---
Test Performed on : 12/31/2016 5:50:53 PM Test Reason : surgery Blood Pressure : / mmHG Vent. Rate : 072 BPM Atrial Rate : 072 BPM P-R Int : 184 ms QRS Dur : 074 ms QT Int : 466 ms P-R-T Axes : 053 005 036 degrees QTc Int : 510 ms Normal sinus rhythm. Cannot rule out Inferior infarct (cited on or before 04-JUL-2016) Prolonged QT Abnormal ECG When compared with ECG of 04-JUL-2016 11:59, Nonspecific T wave abnormality, worse in Inferior leads Nonspecific T wave abnormality now evident in Lateral leads QT has lengthened Confirmed by Jarad CLEMENTS, Ney Lipscomb ([id number]) on 01/02/2017 11:21:56 AM
--- NOTE | 2017-01-02 06:30 | PROGRESS NOTE ---
DATE: 01/02/2017 SUBJECTIVE: The patient still remains intubated, still on Levophed. OBJECTIVE: Vital Signs: Patient is currently afebrile. Temperature 98 degrees, most recent pulse 59, respiratory rate on the ventilator recorded at 12, blood pressure 116/67, O2 saturation 100%. General Examination: Sedated. Cardiovascular: Regular rate and rhythm. Lungs: Referred airway noises. Abdomen: Obese. Incision is healing okay. Ileostomy appears to be with some ischemia noted. It is weeping at this time. Laboratory: White blood cell count is 18, hematocrit 29. ABG: PH of 7.29, pCO2 of 35, bicarb 17, base deficit of 9. Lactic acid 0.9. ASSESSMENT AND PLAN: A 71-year-old female, status post open right hemicolectomy for ischemic bowel. Postoperative day number 2. At this time, the patient is still on Levophed. She is being resuscitated. I am concerned given the ischemia of her ileostomy that other intestine might be compromised. This could be a purely localized ischemia to her ileostomy secondary to the creation. Regardless, we will watch her closely. We will continue to resuscitate her. Her lactic acid is still within normal limits, although she is acidotic on her pH and does have a base deficit. Overall condition is still probably guarded. We will continue to monitor. I discussed and updated her son on the current condition. cc: Stevo Jovel MD
[2017-01-02] MEDS: PLAVIX NG SCH (08:14)
[2017-01-02] MEDS ORDERED: HEPARIN ONE (08:32)
[2017-01-02] MEDS ORDERED: NS 2,000 ML ONE ×2 (08:32→09:11)
[2017-01-02] MEDS ORDERED: LR 1,000 ML ONE (09:11)
[2017-01-02] MEDS ORDERED: QUELICIN (DOSE) ONE (09:11)
[2017-01-02] MEDS ORDERED: XYLOCAINE-MPF 2% ONE (09:11)
[2017-01-02] MEDS ORDERED: BLOOD SET Y-TYPE 8949 ONE (09:11)
[2017-01-02] MEDS ORDERED: AMIDATE ONE (09:11)
[2017-01-02] MEDS ORDERED: NORCURON ONE (09:11)
[2017-01-02] MEDS ORDERED: OFIRMEV 1000 MG/ISOTONIC SOLN 1,000 MG/100 ML BOTTLE ONE (09:11)
[2017-01-02] MEDS ORDERED: ANESTHESIA PB SET 88 IN 5742 ONE (09:11)
--- NOTE | 2017-01-02 10:07 | Diag Imaging Result Document ---
PROCEDURE NAME: CHEST-PORTABLE - 01/02/2017 PORTABLE CHEST X-RAY, 01/02/2017: COMPARISON: 01/01/2017. FINDINGS: Stable endotracheal tube and nasogastric tube. Stable cardiomegaly and pulmonary vascular congestion. There is improvement in the ill-defined central infiltrates/edema. Stable right hemidiaphragm elevation. IMPRESSION: Improvement in the ill-defined pulmonary edema.
[2017-01-02] MEDS: SODIUM BICARBONATE 8.4% 150 MEQ in D5W 1,000 ML IV SCH (10:32)
[2017-01-02] MEDS: MORPHINE IV PRN (10:34)
--- NOTE | 2017-01-02 11:42 | PROGRESS NOTE ---
DATE: 01/02/2017 SUBJECTIVE: This patient is still on mechanical ventilation and sedated. No acute events overnight. She has been on IV fluids but she has end-stage renal disease. Today, she will have dialysis. Two days ago, this patient had an exploratory laparotomy with extended right hemicolectomy and end ileostomy. I have consulted the solar sales assessor. OBJECTIVE: Vital Signs: Temperature 97.6 degrees, pulse 62, respiratory rate 14, blood pressure 113/70, oxygen saturation 100% on mechanical ventilation. HEENT: Head normocephalic. No trauma. PERRLA. Neck: Supple. No JVD. No masses. Central trachea. Chest: Clear to auscultation. No wheezing. No rales. Abdomen: Soft. Ileostomy on the right side that is working fine. Nondistended. Extremities: Trace edema. Decreased pulses but palpable. No cyanosis. Neurological Examination: The patient is on mechanical ventilation and sedated. Laboratory: WBC 18.1, hemoglobin 9.7, hematocrit 29.7, platelets 184,000. Sodium 131, potassium 3.6, chloride 99, bicarbonate 16, BUN 50, creatinine 6.6, glucose 122, calcium 8.1. ASSESSMENT AND PLAN: 1. Ischemic transverse colon, status post exploratory laparotomy with extended right hemicolectomy with end ileostomy done 2 days ago. Abdomen looks fine. The ileostomy is working good. No distention. We will continue to follow the recommendation of surgery department. 2. Leukocytosis. Continue to monitor. We will continue with the antibiotics. Yesterday, I placed this patient on vancomycin. This patient had a positive culture for gram-positive cocci. 3. Septic shock. Again, I will continue with the same treatment. This patient is on pressors and antibiotics. 4. End-stage renal disease, on hemodialysis. Followed by Dr. Hollingsworth. Today, this patient will have dialysis. She has been on intravenous fluids because of her sepsis and surgery. She has a positive balance of more than 7 L. 5. Microcytosis. We will continue to monitor. 6. Deep vein thrombosis prophylaxis. Continue with sequential compression devices and АНДРЕЙ hose. Probably, we will put this patient in the near future with anticoagulation. 7. Nutritional status. I have consulted the solar sales assessor for evaluation. CRITICAL CARE TIME: Thirty-five minutes. cc: Constantino Briscoe MD
--- NOTE | 2017-01-02 14:28 | ECHO REPORT ---
ORDER DATE: 01/01/2017 ECHOCARDIOGRAPHIC MEASUREMENTS: 1. Interventricular septum 1.5. Left ventricular posterior wall 1.2. Diastolic diameter 4.6. Left atrium 4. Aorta 3.0. 2. Aortic valve leaflets were trileaflet, calcified. Pulmonic valve was normal. There was trace pulmonary regurgitation. 3. There is left atrial enlargement. 4. Normal left ventricular cavity size. Estimated ejection fraction of 55-60%. 5. Mitral valve was normal. Tricuspid valve was normal. 6. There is mild mitral regurgitation. Mild tricuspid regurgitation. Peak velocity across the tricuspid regurgitation was 2.6 m/sec. Peak velocity across the aortic valve was 2.8 m/sec with a mean gradient of 17 mmHg. There is mild aortic stenosis versus sclerosis not associated with any regurgitation. 7. There is no pericardial effusion or obvious intracardiac mass or thrombus. cc: Moncho Story MD
--- NOTE | 2017-01-02 15:42 | CONSULTATION ---
DATE OF CONSULTATION: 01/02/2017 REASON FOR ADMISSION: Ischemic colitis, sepsis. REASON FOR CONSULTATION: ESRD management. Assist with medical management. CONSULTING PHYSICIAN: Constantino Clemons. HISTORY OF PRESENTING ILLNESS: This is a 71-year-old female noted to our service for ESRD management. She is a dialysis patient at the [facility] on Monday, Monday, Monday. She came to the hospital on day of admission secondary to abdominal pain. She was found to have an ischemic colitis. She was taken to the OR where she had a right hemicolectomy with a ileostomy created. She came back from the OR on the ventilator and has remained there over the weekend. She has required pressor support maxed out for the majority of the weekend. She is about 7 L positive over the last 2 days. Chest x-ray yesterday indicated mild interstitial markings suggesting mild edema and right basilar atelectasis. She has been followed by surgery who are concerned about the ischemia of her ileostomy. She has remained in guarded condition. We have been asked to see her to assist with her management and with her dialysis needs. Currently there is no family at the bedside. Information is obtained from the nursing staff and the chart. The patient remains sedated, mechanically ventilated. PAST MEDICAL HISTORY: End-stage renal disease on hemodialysis Monday, Monday , Monday, dementia, COPD, anemia, breast cancer, colon cancer, history of anxiety, GERD, gout, history of CVA, hyperlipidemia. She is a resident of a jail. PAST SURGICAL HISTORY: Hysterectomy, cholecystectomy, left breast biopsy, left upper extremity graft, left mastectomy, right ankle surgery. ALLERGIES: No known drug allergies. CURRENT MEDICATIONS: Are listed as Plavix, Dilaudid, meropenem, morphine, norepinephrine, propofol, normal saline. She has also received some albumin while she is here. She has received heparin and potassium chloride supplement. FAMILY HISTORY: Noncontributory. SOCIAL HISTORY: She is a resident of a jail. She does have family. There is no ETOH, tobacco or illicit drug use noted. REVIEW OF SYSTEMS: Unobtainable secondary to currently sedated. Came in with abdominal pain. PHYSICAL EXAMINATION: Vital Signs: Temperature 98 degrees, pulse 64, respiratory rate 12, blood pressure 125/72. Intake 4.2 L, output 250 mL. Again she is about 7 L positive over the last 48 hours. General: This is a acute and chronically ill-appearing elderly female resting in bed. She grimaces, chews on the ET tube and shakes her head back and forth when stimulated. HEENT: She is orally intubated. She has no scleral edema. Conjunctivae are pale. Neck: Thick, supple. Unable to discern JVD. Cardiovascular: Reveals a regular rate and rhythm with a systolic murmur. There is no gallop appreciated. Pulmonary: She is intubated, mechanically ventilated. Has decreased breath sounds to the bases. No wheeze noted. Abdomen: Is hypoactive bowel sounds. Ostomy noted. Some ischemia. : She has a Uriostegui catheter scant urine. Extremities: She has 2+ pretibial edema. She has significant dependent edema to the hips and thighs and back. Upper extremity dependent edema. Integument: Skin is pale, warm and dry otherwise. Neurologic: Unable to assess on sedation. She does shake her head from side to side with tactile stimuli and chew on the ET tube. LAB DATA: WBC of 18.1, hemoglobin 9.7, hematocrit 29.7, platelet count 184, 000. Sodium 131, potassium 3.6, chloride 99, CO2 16, BUN 50, creatinine 6.6, calcium 8.1. Chest x-ray, bilateral pulmonary edema, right atelectasis. ASSESSMENT AND PLAN: 1. End-stage renal disease management. Will run the patient on SLED today. Four K bath with removal goal of 4 L on 8 hour treatment. She is on norepinephrine and her low blood pressure may be contributing to her ischemic ostomy site. We may be limited as far as the amount of fluid we are actually able to get off of her. She has been maxed out on norepinephrine. 2. Electrolytes. Will address on dialysis. 3. Anemia stable. 4. Sepsis. She is on Merrem. 5. Fluid volume. See above. 6. Ischemic bowel followed by primary surgery. Seen, data reviewed, discussed with Bere Mckeon on 01/03/17. I agree with the above assessment and plan of care. rg Dictated by SYEDA Omlstead for Jose David Hollingsworth MD cc: Jose David Hollingsworth MD [facility]
[2017-01-02] MEDS: VANCOMYCIN 1 GM/NS 1 GM/250 ML IVPB IV SCH (18:02)
[2017-01-03] MEDS: DIPRIVAN 1% 1,000 MG/100 ML BOTTLE IV SCH ×6 (00:04→23:55)
[2017-01-03] MEDS: MERREM 500 MG in NS 50 ML IV SCH ×4 (00:04→23:56)
[2017-01-03] MEDS: SODIUM BICARBONATE 8.4% 150 MEQ in D5W 1,000 ML IV SCH (01:25)
[2017-01-03 04:40] LABS: ALLEN TEST YES; BE 6.1 mmoll (-3.0-3.0); BLOOD TYPE ARTERIAL; DRAW SITE R RADIAL; METHB 0.1 % (0.0-1.5); O2(CT) 13.2 mL/dL (15.0-23.0); PCO2(98.6) 28 mmHg (35-45); PO2(98.6) 98 mmHg (60-100); SAMPLE BLOOD; SAO2 95.9 % (95.0-100.0); SRATE 18 BPM; THB 9.7 g/dL (11.5-17.4); TVOL 500 mL
[2017-01-03 04:41] LABS: MODALITY VENTILATOR
[2017-01-03 04:58] LABS: HEMATOCRIT 28.6 % (37.0-47.0); HEMOGLOBIN 9.4 g/dL (12.0-16.0); MCH 34.4 PG (27-31); MCHC 32.9 g/dL (33-37); MCV 104.8 FL (81-99); RBC 2.73 XMIL (4.2-5.4)
[2017-01-03 05:26] LABS: ALBUMIN 2.5 g/dL (3.5-5.0); CALCIUM 7.8 mg/dL (8.8-10.2); POTASSIUM 3.8 mmol/L (3.5-5.1); TOTAL BILIRUBIN 0.47 mg/dL (0.20-1.00); TOTAL PROTEIN 5.8 g/dL (6.3-8.3)
--- NOTE | 2017-01-03 07:11 | PROGRESS NOTE ---
DATE: 01/03/2017 SUBJECTIVE: The patient still remains intubated. She did tolerate dialysis. They removed what was reported as 3 L. Her Levophed has been decreased. OBJECTIVE: Vital Signs: The patient is currently afebrile. Most recent pulse in the 60s. Blood pressure 124/70, O2 saturation 98%. General: Patient is still sedated on the ventilator. Cardiovascular: Regular rate and rhythm. Lungs: Referred airway noises. Abdomen: Incision healing, with no signs of infection. Ostomy appears improved at this time. There are some patchy areas of ischemia, but overall the ostomy has red mucosa. It is functioning. She has had a liter out of her ostomy at this point. LABORATORY STUDIES: White blood cell count is 14, which is down from 18. Hematocrit is 28.6. ABG shows a pH 7.6, CO2 of 28, bicarbonate of 29. Base excess of 6, lactic acid 1.50. ASSESSMENT AND PLAN: A 71-year-old female, status post open right hemicolectomy for ischemic bowel. Postoperative day number 3. At this time, patient is still on Levophed, although it is decreased. She is being resuscitated and making some improvement. Her ileostomy, which appeared ischemic yesterday, seems to be improving. It is functioning at this point. I would recommend to continue to monitor closely. Given her changes, she is making improvement. Hopefully, we will wean the ventilator to extubate in the near future, but will defer to pulmonary. Continue current treatment. cc: Stevo Jovel MD
[2017-01-03] MEDS: LEVOPHED 8 MG in D5 1/2 NS 250 ML IV SCH ×2 (07:29→17:03)
--- NOTE | 2017-01-03 07:55 | Diag Imaging Result Document ---
PROCEDURE NAME: CHEST-PORTABLE - 01/03/2017 SINGLE FRONTAL RADIOGRAPH OF THE CHEST: COMPARISON: 01/02/2017. FINDINGS: ET tube is in stable position. NG tube projects below the diaphragm and is assumed to be in the stomach. Inspiration is suboptimal. Pulmonary vascular congestion and mild central infiltrates, more prominent on the right, are essentially stable given differences in positioning and inspiration. No new consolidations identified. Cardiac silhouette is stable. IMPRESSION: Essentially stable chest.
[2017-01-03] MEDS: PLAVIX NG SCH (08:00)
[2017-01-03] MEDS ORDERED: NS 2,000 ML ONE (08:12)
[2017-01-03] MEDS ORDERED: HEPARIN ONE (08:12)
--- NOTE | 2017-01-03 10:13 | PROGRESS NOTE ---
DATE: 01/03/2017 SUBJECTIVE: She is sedated on the ventilator. OBJECTIVE: Vital Signs: Blood pressure 97/57, heart rate 75, respirations 12, afebrile. General: She is in no acute distress. Skin: Warm and dry. Eyes: Conjunctivae are pink. Neck: Neck veins are not distended. Heart: Regular with systolic murmur. Lungs: Have equal breath sounds. Coarse few crackles. Abdomen: Obese and soft. Ostomy is dark. Bowel sounds are minimal. Extremities: Have no edema, clubbing, or cyanosis. LABORATORY DATA: Sodium 134, potassium 3.8, chloride 97, bicarbonate 24. BUN 18 and creatinine 3.6. IMPRESSION: 1. End-stage kidney disease. Continue slow low efficiency dialysis today with a goal of 4 L to 6 L ultrafiltration 4 potassium bath with a 27 bicarbonate. 2. Electrolytes are in target. 3. Acid base, improved. 4. Anemia. Stable. cc: Jose David Hollingsworth MD
--- NOTE | 2017-01-03 10:39 | PROGRESS NOTE ---
DATE: 01/03/2017 SUBJECTIVE: Patient is sedated and intubated. OBJECTIVE: Vital Signs: Temperature 97.9 degrees, heart rate 75, respiratory rate 12, blood pressure 115/77 and O2 saturation 98% on mechanical ventilator. General Examination: This is a 71-year-old, female, sedated and intubated. HEENT: Head is normocephalic. No trauma noted. Pupils equal, round, reactive to light and accommodation. Neck: Supple. No JVD noted. No masses. Central trachea. Cardiovascular exam: S1, S2 heard. No murmurs, gallops, or rubs. Regular rate and rhythm. Respiratory exam: Coarse breath sounds. The patient is intubated. The patient is not using any accessory muscles. No work of breathing noted. Abdomen: Soft with ileostomy in the right side that is working. Nondistended. Bowel sounds present. Extremities: Mild edema in both lower extremities with decreased pulses palpable. No cyanosis or clubbing. Neurological exam: Patient is sedated and intubated. LABORATORY DATA: 1. White cell count 14.03, hemoglobin 9.4, hematocrit 28.6. 2. Platelets 207. 3. ABG shows pH of 7.6 with pCO2 of 28, PO2 98. 4. BMP shows creatinine 3.6 with GFR 13 and BUN 18. ASSESSMENT: 1. Acute respiratory failure on ventilator. 2. 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 3. Septic shock. 4. End-stage renal disease on hemodialysis. 5. Deep vein thrombosis prophylaxis. PLAN: The patient has been admitted to the hospital for ischemic colitis that required surgery. Because of this infection, the patient has developed septic shock. Patient is still on vasopressors. Patient is still intubated. General surgery, Dr. Jovel, and also Dr. Mcnair follow this patient. Leukocytosis has improved today. For end-stage renal disease on dialysis, patient is getting dialysis at bedside. Still trying to remove 3 L today. For DVT prophylaxis patient is on compression devices and [id number]'s. Nutritional status: We have consulted revenue manager for evaluation. cc: Gabriel Mi MD [facility]
[2017-01-03] MEDS: VANCOMYCIN 1 GM/NS 1 GM/250 ML IVPB IV SCH (17:04)
[2017-01-04] MEDS: DIPRIVAN 1% 1,000 MG/100 ML BOTTLE IV SCH ×2 (04:22→09:55)
[2017-01-04] MEDS: LEVOPHED 8 MG in D5 1/2 NS 250 ML IV SCH ×2 (04:22→19:59)
[2017-01-04 04:46] LABS: ALLEN TEST YES; BE 3.6 mmoll (-3.0-3.0); BLOOD TYPE ARTERIAL; DRAW SITE R RADIAL; METHB 0.2 % (0.0-1.5); O2(CT) 20.8 mL/dL (15.0-23.0); PCO2(98.6) 35 mmHg (35-45); PO2(98.6) 117 mmHg (60-100); SAMPLE BLOOD; SAO2 95.7 % (95.0-100.0); SRATE 12 BPM; THB 15.4 g/dL (11.5-17.4); TVOL 500 mL; pH(98.6) 7.49 (7.35-7.45)
[2017-01-04 04:47] LABS: MODALITY VENTILATOR
[2017-01-04 05:19] LABS: ALBUMIN 2.5 g/dL (3.5-5.0); CALCIUM 8.2 mg/dL (8.8-10.2); POTASSIUM 4.5 mmol/L (3.5-5.1); TOTAL BILIRUBIN 0.41 mg/dL (0.20-1.00); TOTAL PROTEIN 5.8 g/dL (6.3-8.3)
--- NOTE | 2017-01-04 06:39 | PROGRESS NOTE ---
DATE: 01/04/2017 SUBJECTIVE: The patient tolerated dialysis again yesterday apparently and removed over 2 L. She still remains on the ventilator. She has had ostomy output. Overall she seems to be doing well. She is still requiring a little bit of Levophed and sedatives to keep her in her current state. OBJECTIVE: Vital Signs: Most recent temperature 97 degrees, most recent pulse 58, most recent blood pressure 109/52. The patient is currently on the ventilator with respiratory rate recorded at 12. She is not breathing over the ventilator. General: No acute distress. Sedated. Cardiovascular: Regular rate and rhythm. Lungs: Grossly clear but with will referred airway noises. Abdomen: Soft, nondistended. Incision is healing well. Ostomy with output noted in the ostomy appliance. The ostomy itself appears to be pink and overall viable. There are some patchy areas where there appears to be some necrosis but overall the ostomy is improving. LABORATORY: For this morning, ABG reviewed and essentially improving. Remainder of labs reviewed. ASSESSMENT AND PLAN: 1. A 71-year-old female with multiple medical comorbidities. Currently postoperative day #4 from an open right hemicolectomy for ischemic bowel. 2. Postop day #4 at this time, patient is still on Levophed although it is decreased. She is being resuscitated and having dialysis done. She is still on the ventilator which hopefully we can decrease and get her extubated here soon. Overall, her ileostomy which was somewhat questionable for ischemia is improving and is functioning now. Once she is off Levophed we could consider starting tube feeds. If she does not seem to improve in the next couple days, may need to consider starting on peripheral nutrition. cc: Stevo Jovel MD [facility]
[2017-01-04] MEDS: PLAVIX NG SCH (08:25)
[2017-01-04] MEDS: MERREM 500 MG in NS 50 ML IV SCH ×2 (08:25→16:32)
[2017-01-04] MEDS ORDERED: NS 500 ML IV ONE ×2 (10:21→19:40)
--- NOTE | 2017-01-04 11:18 | PROGRESS NOTE ---
DATE: 01/04/2017 SUBJECTIVE: Patient is on vacation sedation. He follows basic commands, squeezing fingers, but of course still intubated and not able to talk. OBJECTIVE: Vital Signs: Temperature 97.6 degrees, heart rate 72, respiratory rate 12, blood pressure 94/50, O2 saturation 98% on mechanical ventilator. General: This is a 71-year-old, female, sedated and intubated. HEENT: Head is normocephalic, atraumatic. Pupils equal, round, reactive to light and accommodation. Mucous membranes moist. Neck: Supple. Intubated. No JVD noted. No carotid bruits. No lymphadenopathy. Cardiovascular exam: S1, S2 heard. No murmurs, gallops, or rubs. Regular rate and rhythm. Respiratory exam: Coarse breath sounds still present. Patient intubated. The patient is not using any accessory muscles or having work of breathing. Abdomen: Soft with ileostomy back in the right side that is working, nondistended. Bowel sounds present. Extremities: Mild edema in both lower extremities with decreased pulses, but still palpable. No cyanosis or clubbing. Neurological exam: Patient is sedated and intubated. LABORATORY DATA: ABG shows pH 7.49, pCO2 35, PO2 117. BMP remarkable for creatinine 2.9. ASSESSMENT: 1. Acute respiratory failure on ventilator. 2. 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 3. Septic shock. 4. End-stage renal disease on hemodialysis. PLAN: Patient is admitted to hospital for the above conditions. Regarding acute respiratory failure, the ABG shows a better gas exchange, so pulmonary who is following this patient has decided to start weaning trial today. We will see how she does. For right hemicolectomy, Dr. Jovel is following this patient. He mentioned that this patient is doing fine. Regarding nutrition, if this patient does not seem to improve in the next couple days and she remains intubated, we may need to consider start peripheral nutrition. Regarding shock, the patient is still on Levophed small doses. For end-stage renal disease on hemodialysis, she is getting hemodialysis at bedside. cc: Gabriel Mi MD
[2017-01-04 11:36] LABS: ALLEN TEST YES; BE 1.7 mmoll (-3.0-3.0); BLOOD TYPE ARTERIAL; DRAW SITE R RADIAL; METHB 0.4 % (0.0-1.5); O2(CT) 12.4 mL/dL (15.0-23.0); PCO2(98.6) 46 mmHg (35-45); PO2(98.6) 51 mmHg (60-100); SAMPLE BLOOD; THB 9.9 g/dL (11.5-17.4); pH(98.6) 7.38 (7.35-7.45)
[2017-01-04 11:43] LABS: MODALITY VENTILATOR
--- NOTE | 2017-01-04 16:16 | PROGRESS NOTE ---
DATE: 01/04/2017 SUBJECTIVE: Patient remains sedated and mechanically ventilated. OBJECTIVE: Vital Signs: Temperature 97.77, respiratory rate 12, blood pressure 93/52. Intake 1.8 L. Output 3.4 L. General: Chronically/acutely ill-appearing female resting in bed. She is currently sedated. HEENT: Normocephalic, atraumatic. She is orally intubated. She is thrashing her head and chewing on the vent. Neck: Supple. There is no JVD. Cardiovascular: Regular rate and rhythm. There is a systolic murmur noted. Pulmonary: She has equal excursion. She has some decreased breath sounds to the bases. She has some rhonchi bilaterally, but no overt wheeze. Abdomen: Obese, soft. She has an ostomy noted. There is some darkened areas. Midline incision with roosevelt, clean, dry and intact. : She has a Uriostegui catheter, scant urine. Extremities: She has 1 to 2+ pretibial edema. She has dependent edema to the thigh and hip. No clubbing, no cyanosis. Integumentary: Skin is pale, warm and dry. LAB DATA: CBC: Sodium 136, potassium 4.5, chloride 100, CO2 of 24, BUN 17, creatinine 2.9. ASSESSMENT AND PLAN: 1. End-stage renal disease management. We dialyzed her yesterday with SLED. We were able to remove 2.7 L on ultrafiltrate. We will let her rest today. Re-evaluate in the morning for further dialysis needs. 2. Electrolytes, acid-base balance. These are acceptable today. 3. Fluid volume at the request of pulmonology. Yesterday, we did not pull as much fluid as we initially planned in an attempt to assist. We will evaluate in the morning for needed volume removal. She has remained hypotensive. She does remain on pressor support. Seen, data reviewed, discussed with Bere Mckeon on 01/04/17. I agree with the above assessment and plan of care. rg Dictated by SYEDA Olmstead for Jose David Hollingsworth MD cc: Jose David Hollingsworth MD [facility]
[2017-01-04] MEDS: ASPIRIN NG SCH (16:32)
[2017-01-04] MEDS: DILAUDID IV PRN (20:34)
[2017-01-05] MEDS: MERREM 500 MG in NS 50 ML IV SCH ×4 (01:25→23:34)
[2017-01-05 04:51] LABS: ALLEN TEST YES; BE -1.9 mmoll (-3.0-3.0); BLOOD TYPE ARTERIAL; DRAW SITE R RADIAL; METHB 0.1 % (0.0-1.5); O2(CT) 16.9 mL/dL (15.0-23.0); PO2(98.6) 106 mmHg (60-100); SAMPLE BLOOD; SAO2 95.2 % (95.0-100.0); THB 12.5 g/dL (11.5-17.4)
[2017-01-05 04:52] LABS: PCO2(98.6) 51 mmHg (35-45)
[2017-01-05 04:53] LABS: MODALITY COOL AEROSOL
[2017-01-05 05:44] LABS: ALBUMIN 2.8 g/dL (3.5-5.0); CALCIUM 8.4 mg/dL (8.8-10.2); TOTAL BILIRUBIN 0.33 mg/dL (0.20-1.00); TOTAL PROTEIN 5.9 g/dL (6.3-8.3)
--- NOTE | 2017-01-05 06:39 | PROGRESS NOTE ---
DATE: 01/05/2017 SUBJECTIVE: The patient was extubated yesterday, seems to be doing okay at this point. It appears at some point, they were able to stop her Levophed, but she had to go back on it around 3 p.m. OBJECTIVE: Vital signs: Patient is currently afebrile. Her pulse is 90, and blood pressure in the 100s systolic. She is on Levophed. O2 saturation 100% on face mask. General: No acute distress. Sleeping comfortably. Cardiovascular: Regular rate and rhythm. Lungs: Some coarse breath sounds noted. Abdomen: Soft, appropriately tender. Ileostomy appears to be more viable today. There was some liquid in the appliance. LABORATORY STUDIES: Reviewed. ABG reviewed. Her pCO2 was 51, her O2 was 106. ASSESSMENT AND PLAN: A 71-year-old female with multiple medical comorbidities. Currently, postoperative day #5 from an open right hemicolectomy. Postoperative day #5. At this time, the patient is extubated, although her pCO2 is slightly elevated. We will need to monitor. Currently, Pulmonary is on board. She is on Levophed still, but they have started tube feeds. Recommend just trickling tube feeds at this point until she is off of Levophed. Her ostomy appears to be improving with output, so we will continue to monitor. Overall, her clinical picture is improving. We will continue to monitor closely. cc: Stevo Jovel MD
[2017-01-05] MEDS: LEVOPHED 8 MG in D5 1/2 NS 250 ML IV SCH (07:11)
--- NOTE | 2017-01-05 07:48 | Diag Imaging Result Document ---
PROCEDURE NAME: CHEST-PORTABLE - 01/05/2017 PORTABLE CHEST X-RAY: COMPARISON: 01/03/2017. FINDINGS: The endotracheal tube is no longer present. Stable nasogastric tube in the stomach. Stable low lung volumes with right hemidiaphragm elevation. Stable cardiomegaly. There is worsening ill-defined central interstitial infiltrates with some Ivett B lines compatible with pulmonary edema. There are also bibasilar pleural effusions. IMPRESSION: 1. Worsening pulmonary edema. 2. The endotracheal tube has been removed.
[2017-01-05] MEDS: CHLORASEPTIC SPRAY MT PRN ×2 (08:30→21:15)
[2017-01-05] MEDS: PLAVIX NG SCH (08:31)
[2017-01-05] MEDS: ASPIRIN NG SCH (08:31)
[2017-01-05] MEDS ORDERED: HEPARIN ONE (08:35)
[2017-01-05] MEDS ORDERED: NS 2,000 ML ONE (08:36)
[2017-01-05] MEDS: DILAUDID IV PRN ×3 (08:43→21:03)
--- NOTE | 2017-01-05 11:17 | PROGRESS NOTE ---
DATE: 01/05/2017 SUBJECTIVE: Patient had been extubated yesterday and able to answer basic questions. Denies any fever, chills, difficulty in breathing. OBJECTIVE: Vital Signs: Temperature 97.6 degrees, heart rate 85, respiratory rate 20, blood pressure 121/64, O2 saturation 99% on 2 L nasal cannula. General Examination: This is a chronically ill-looking and frail, 71-year-old, female lying in bed, in no acute distress. HEENT: Head is normocephalic and atraumatic. Anicteric sclerae and pale conjunctivae. Mucous membranes moist. Neck: Supple. No JVD noted. No carotid bruits. No lymphadenopathy. No thyromegaly. Cardiovascular Examination: S1 and S2 heard. No murmurs, gallops, or rubs. Regular rate and rhythm. Respiratory Examination: Coarse breath sounds still present in both bases. Patient is not using any accessory muscles or having work of breathing. Abdomen: Soft with ileostomy and bag in the right side that is working. Abdomen is not distended. Bowel sounds present. Extremities: Mild edema in both lower extremities with decreased pulses but are still palpable. No cyanosis or clubbing. Neurological Examination: Patient is sedated and intubated. Laboratory Data: White cell count 14.03, hemoglobin 9.4, hematocrit 28.6, platelets 207,000. ABG shows pH 7.32, with pCO2 51, PO2 106. BMP remarkable for creatinine 4.2. ASSESSMENT AND PLAN: 1. Acute respiratory failure. Patient had been extubated successfully yesterday and now requiring just 2 L of oxygen by nasal cannula. We will continue with the same management. We will continue with breathing treatment. Dr. Mcnair from pulmonary following this patient. 2. Ischemic transverse colon, status post right hemicolectomy, stable. Dr. Jovel following this patient daily. He thinks that this patient is doing good from his standpoint. We will continue with the same management. 3. Septic shock. He is still requiring small doses of Levophed. We will continue this patient in the intensive care unit. 4. End-stage renal disease, on hemodialysis. Patient is receiving dialysis at bedside. We appreciate Dr. Hollingsworth's help. 5. Physical deconditioning. If tomorrow, the patient continues to improve, we will put a consult for physical therapy. cc: Gabriel Mi MD
[2017-01-05 12:41] LABS: BASO% 0.2 % (0.0-0.8); EOS# 0.85 X1000 (0.0-0.7); EOS% 5.9 % (0.0-10.0); HEMATOCRIT 26.1 % (37.0-47.0); HEMOGLOBIN 7.9 g/dL (12.0-16.0); IMM GRAN# 0.11 X1000 (0.0-0.04); IMM GRAN% 0.8 % (0.0-0.5); LYMPH# 1.37 X1000 (1.2-3.4); LYMPH% 9.6 % (20.5-51.1); MANUAL DIFF NEEDED? YES; MCH 34.1 PG (27-31); MCHC 30.3 g/dL (33-37); MCV 112.5 FL (81-99); MONO# 1.07 X1000 (0.11-0.59); MONO% 7.5 % (1.7-9.3); MPV 10.2 FL (7.4-10.4); PLT 225 X1000 (130-400); RBC 2.32 XMIL (4.2-5.4)
[2017-01-05 13:07] LABS: BANDS 2 % (0-1); EOS 4 % (1-10); LYMPHS 14 % (21-51)
--- NOTE | 2017-01-05 13:57 | PROGRESS NOTE ---
DATE: 01/05/2017 SUBJECTIVE: She has been extubated. She is on a closed face mask. She is awake, alert, and recognizes me. OBJECTIVE: Vital Signs: Blood pressure 109/55, heart rate 79, respirations 20, afebrile. Intake 1.6 L. Output 1.1 L. General: No acute distress. Skin: Warm and dry. HEENT: Conjunctivae are pink. Neck: Neck veins are not distended. Heart: Regular. Heart rate in the 90s. Lungs: Have equal breath sounds. Shallow. No crackles. Abdomen: Soft, nontender. Bowel sounds not appreciated. Her ostomy is pinker today. Extremities: Have 1+ edema. No clubbing or cyanosis. IMPRESSIONS: 1. End-stage kidney disease. SLED today. Target 2 L ultrafiltration with a 4 bath and 27 bicarbonate. 2. Electrolytes, in target. 3. Acid base, in target. 4. Anemia: Hemoglobin is falling. May require transfusion. Does not meet criteria today. cc: Jose David Hollingsworth MD
[2017-01-06] MEDS: LEVOPHED 8 MG in D5 1/2 NS 250 ML IV SCH (02:39)
[2017-01-06] MEDS: DILAUDID IV PRN ×4 (02:40→21:11)
[2017-01-06 04:41] LABS: ALLEN TEST YES; BE 1.7 mmoll (-3.0-3.0); BLOOD TYPE ARTERIAL; DRAW SITE R RADIAL; METHB 0.5 % (0.0-1.5); O2(CT) 9.2 mL/dL (15.0-23.0); PO2(98.6) 79 mmHg (60-100); SAMPLE BLOOD; SAO2 95.3 % (95.0-100.0); THB 6.8 g/dL (11.5-17.4); pH(98.6) 7.31 (7.35-7.45)
[2017-01-06 04:45] LABS: MODALITY CANNULA; PCO2(98.6) 56 mmHg (35-45)
[2017-01-06 05:01] LABS: BASO% 0.3 % (0.0-0.8); EOS% 8.1 % (0.0-10.0); HEMATOCRIT 26.3 % (37.0-47.0); HEMOGLOBIN 7.9 g/dL (12.0-16.0); IMM GRAN# 0.09 X1000 (0.0-0.04); IMM GRAN% 0.7 % (0.0-0.5); LYMPH# 1.77 X1000 (1.2-3.4); LYMPH% 14.4 % (20.5-51.1); MANUAL DIFF NEEDED? YES; MCH 34.1 PG (27-31); MCV 113.4 FL (81-99); MONO# 1.08 X1000 (0.11-0.59); MONO% 8.8 % (1.7-9.3); MPV 10.3 FL (7.4-10.4); NEUT% 67.7 % (42.2-75.2); PLT 262 X1000 (130-400); RBC 2.32 XMIL (4.2-5.4)
[2017-01-06 05:18] LABS: ALBUMIN 2.7 g/dL (3.5-5.0); CALCIUM 8.3 mg/dL (8.8-10.2); POTASSIUM 4.5 mmol/L (3.5-5.1); TOTAL BILIRUBIN 0.2 mg/dL (0.20-1.00); TOTAL PROTEIN 5.9 g/dL (6.3-8.3)
[2017-01-06 05:26] LABS: BANDS 8 % (0-1); EOS 6 % (1-10); LYMPHS 16 % (21-51); MONO 6 % (1-9)
--- NOTE | 2017-01-06 08:21 | Diag Imaging Result Document ---
PROCEDURE NAME: CHEST-PORTABLE - 01/06/2017 AP PORTABLE CHEST ERECT AT 0610 HOURS: FINDINGS: There is an NG tube coiled in the fundus of the stomach. The inspiration is suboptimal. There is some clearing of the left costophrenic angle compared to the previous study of 01/05/2017. Otherwise, there has been no significant change. IMPRESSION: Improved atelectasis and possible pleural effusion on the left.
--- NOTE | 2017-01-06 08:55 | PROGRESS NOTE ---
DATE: 01/06/2017 SUBJECTIVE: Patient still remaining extubated, she is just on a little bit of Levophed. She tolerated dialysis last night. She is tolerating her tube feeds. OBJECTIVE: Vital Signs: Patient is currently afebrile. Most recent pulse in the 80s, most recent blood pressure systolic 120. She is on just a small amount of Levophed at this time. She is currently on 2 L nasal cannula. Saturations in the 100s. General: No acute distress. Cardiovascular: Regular rate and rhythm. Lungs: Grossly clear. Abdomen: Soft, appropriately tender. Incision healing well. The ileostomy is more viable with ostomy output. Her neurologic status is also improving, she is more alert today than she has been. LABORATORY: White blood cell count is 12, hematocrit is 26, platelet count 262,000. ABG reviewed. PCO2 is 56. Remainder of labs reviewed. Of note, her albumin is 2.7. ASSESSMENT AND PLAN: A 71-year-old female with multiple medical comorbidities, currently postoperative day #6, from an open right hemicolectomy. 1. Postoperative day #6: At this time, patient is doing well, extubated. Her CO2 is slightly high, but we will continue to monitor. She does not seem to have any respiratory distress. 2. She is still on Levophed and would like to just trickle tube feeds at this moment still she is off of Levophed. Once she is off, can advance her tube feeds to goal or even remove her tube, if she is able to neurologically cooperate and swallow. 3. Overall, her clinical picture seems to be improving. We will continue to follow. 4. Dr. Shaffer will see her over the weekend while I am gone. cc: Stevo Jovel MD
[2017-01-06] MEDS: MERREM 500 MG in NS 50 ML IV SCH ×2 (09:30→16:09)
[2017-01-06] MEDS: PLAVIX NG SCH (09:33)
[2017-01-06] MEDS: ASPIRIN NG SCH (09:33)
--- NOTE | 2017-01-06 09:35 | PROGRESS NOTE ---
DATE: 01/06/2017 SUBJECTIVE: She is awake and alert. She still complains of abdominal pain, but no shortness of breath, nausea, vomiting. OBJECTIVE: Vital Signs: Blood pressure 108/82, heart rate 85, respirations 13, afebrile. Intake 1.5 L. Output 1.8 L. General: No acute distress. Skin: Warm and dry. Conjunctivae are pink. Neck: Neck veins are not distended. Heart: Regular. No gallops. Lungs: Equal breath sounds. No crackles. Abdomen: Soft, modestly tender. Bowel sounds are present. Her ostomy is unchanged from yesterday. Still dark, but improved from admission. Extremities: Have trace edema. No clubbing or cyanosis. LABORATORY DATA: Sodium 139, potassium 4.5 chloride 103, bicarbonate 23, BUN 20, creatinine 3.4, hemoglobin 7.9. IMPRESSION: 1. End-stage kidney disease. Her next planned dialysis will be tomorrow. We should be able to use standard hemodialysis at that point. 2. Electrolytes/acid-base acceptable. 3. Anemia. Her hemoglobin has fallen, but it is stable. We may transfuse 1 unit of blood tomorrow in dialysis. cc: Jose David Hollingsworth MD
--- NOTE | 2017-01-06 13:08 | PROGRESS NOTE ---
DATE: 01/06/2017 SUBJECTIVE: Patient is definitely more alert and awake, is able to answer questions appropriately. Denies any fever or chills. Denies any abdominal pain. OBJECTIVE: Vital Signs: Temperature 97.5 degrees, heart rate 85, respiratory rate 13, blood pressure 108/82, and O2 saturation 98% on 2L nasal cannula. General Examination: This is a chronically ill-looking and frail 71-year-old female, lying in bed in no acute distress. HEENT: Head is normocephalic, atraumatic. Anicteric sclerae and pale conjunctivae. Mucous membranes moist. Neck: Supple. No JVD noted. No carotid bruits. No lymphadenopathy. No thyromegaly. Cardiovascular: S1 and S2 heard. No murmurs, gallops, or rubs. Regular rate and rhythm. Respiratory: Coarse breath sounds are still present in both bases, unchanged from previous days, but patient is not using any accessory muscles or having work of breathing. Abdomen: Soft. Ileostomy bag on the right side. Abdomen is soft to palpation. No signs of peritoneal irritation. Extremities: Mild edema in both lower extremities. No clubbing or cyanosis. Neurological: Patient is definitely more alert and awake. Moves 4 extremities. LABORATORY DATA: White cell count 12.33, hemoglobin 7.9, hematocrit 26.3, platelets 262,000. ABG shows pH 7.31, pCO2 of 56. BMP shows creatinine 3.4 and BUN 20. ASSESSMENT AND PLAN: 1. Acute respiratory failure. The patient has been extubated successfully a couple of days ago and now she is requiring oxygen by nasal cannula at 2 L/minute. We will continue with the same management. 2. Dr. Mcnair is following this patient. 3. Ischemic transverse colon, status post right hemicolectomy. Dr. Jovel is following this patient. Patient is stable from a surgical standpoint. She has been started on tube feedings. 4. Septic shock. The patient is still requiring tiny doses of Levophed. At this point, we are going to continue keeping this patient in the intensive care unit. 5. End-stage renal disease, on hemodialysis. Patient is receiving dialysis as per Dr. Hollingsworth's indications. Help appreciated. 6. Physical deconditioning. Aware. Physical Therapy will start working on this patient when the patient is off vasopressors. cc: Gabriel Mi MD
[2017-01-07] MEDS: MERREM 500 MG in NS 50 ML IV SCH ×3 (02:14→16:38)
[2017-01-07] MEDS: DILAUDID IV PRN ×3 (02:25→21:18)
[2017-01-07] MEDS ORDERED: NS 2,000 ML ONE (07:31)
[2017-01-07] MEDS ORDERED: HEPARIN ONE (07:31)
[2017-01-07 08:46] LABS: ALBUMIN 2.6 g/dL (3.5-5.0); CALCIUM 8.5 mg/dL (8.8-10.2); POTASSIUM 5.3 mmol/L (3.5-5.1); TOTAL BILIRUBIN 0.26 mg/dL (0.20-1.00); TOTAL PROTEIN 5.9 g/dL (6.3-8.3)
[2017-01-07 09:13] LABS: BASO% 0.4 % (0.0-0.8); EOS# 0.93 X1000 (0.0-0.7); EOS% 8.1 % (0.0-10.0); HEMATOCRIT 24.5 % (37.0-47.0); HEMOGLOBIN 7.5 g/dL (12.0-16.0); IMM GRAN# 0.07 X1000 (0.0-0.04); IMM GRAN% 0.6 % (0.0-0.5); LYMPH# 1.89 X1000 (1.2-3.4); LYMPH% 16.5 % (20.5-51.1); MANUAL DIFF NEEDED? NO; MCH 34.7 PG (27-31); MCHC 30.6 g/dL (33-37); MCV 113.4 FL (81-99); MONO# 1.04 X1000 (0.11-0.59); MONO% 9.1 % (1.7-9.3); MPV 10.5 FL (7.4-10.4); NEUT% 65.3 % (42.2-75.2); PLT 337 X1000 (130-400); RBC 2.16 XMIL (4.2-5.4)
--- NOTE | 2017-01-07 10:49 | PROGRESS NOTE ---
DATE: 01/07/2017 SUBJECTIVE: She is in dialysis this morning and seems in good spirits. NG tube is removed and her diet was advanced by Dr. Mcnair. OBJECTIVE: Vital Signs: Temperature is 98.8 degrees, pulse 91, blood pressure 120/79, oxygen saturation 100% on 2 L. General: She is alert. She appears to be kind of chronically demented, but in good spirits. Abdomen: Soft, nontender, nondistended. Ostomy is pink, viable with stool and gas in the bag. Incision is clean, dry, and intact. LABS: I reviewed her labs. White count 11, hematocrit 24. This morning potassium is 5.3, creatinine is 5.3 as well. ASSESSMENT/PLAN: A 71-year-old female, status post right colectomy with an end ileostomy for ischemic colitis. She is progressing well. Bowels are functioning. Begin advancing her diet as tolerated with nutritional supplementation. She is in dialysis. Appreciate Dr. Mcnair from medicine service input in her care, but from a surgical standpoint she is progressing well. cc: Tracy Shaffer MD
--- NOTE | 2017-01-07 11:54 | PROGRESS NOTE ---
DATE: 01/07/2017 SUBJECTIVE: The patient is definitely more alert today. No fever or chills noted. Denies abdominal pain. OBJECTIVE: Vital Signs: Temperature 98.8 degrees, heart rate 91, respiratory rate 19, blood pressure 120/79 O2 saturation 100% 2 L nasal cannula. General Examination: This is a chronically ill-looking and frail 71-year-old female lying in bed, in no acute distress. HEENT: Head is normocephalic, atraumatic. Anicteric sclerae and pale conjunctivae. Mucous membranes moist. Neck: Supple. No jugular venous distention noted. No carotid bruits. No lymphadenopathy. No thyromegaly. Cardiovascular: S1, S2 heard. No murmurs, gallops, or rubs. Regular rate and rhythm. Respiratory Examination: Coarse breath sounds are still present in both bases. A little bit better in comparing with yesterday. The patient is not using any accessory muscles or having work of breathing. Abdomen: Soft with ileostomy bag on the right side. Abdomen is soft to palpation. No signs of peritoneal irritation. NG tube has been removed today. Extremities: Mild edema in both lower extremities. No clubbing or cyanosis. Neurological: Patient is more alert and awake. Moves 4 extremities. LABORATORY DATA: White cell count 11.42, hemoglobin 7.5, hematocrit 24.7, platelets 337,000. Sodium 138, potassium 4.3, chloride 104, bicarb 22, BUN 31, creatinine 5.3. ASSESSMENT AND PLAN: 1. Acute respiratory failure. This condition is improving. Patient is using 2 L of oxygen by nasal cannula and doing fine. Dr. Mcnair for Pulmonary is following this patient. 2. Ischemic transverse colon, status post right hemicolectomy. General surgery following this patient. The patient is doing good from surgical standpoint. Dr. Mcnair has removed the nasogastric tube and started on diet. Help appreciated. 3. Septic shock. We have discontinued Levophed yesterday and since then the patient is doing fine with blood pressure ranging between 100 and 110. 4. End-stage renal disease on hemodialysis. Patient is getting dialysis today as per Dr. Hollingsworth's recommendations. Help appreciated. 5. Physical deconditioning. Physical therapy has been consulted. cc: Gabriel Mi MD
[2017-01-07] MEDS: ASPIRIN NG SCH (12:12)
[2017-01-07] MEDS: PLAVIX NG SCH (12:12)
--- NOTE | 2017-01-07 13:10 | PROGRESS NOTE ---
DATE: 01/07/2017 CHIEF COMPLAINT: Abdominal pain, respiratory failure. SUBJECTIVE: Ms. Marino just completed hemodialysis this morning. She is very uncomfortable, having abdominal pain. OBJECTIVE: Her Levophed was discontinued yesterday, and she is maintaining an adequate blood pressure and right now is 106/65, pulse is 100, temperature 97.1, respirations 18. She is in some discomfort. HEENT: She looks pale. Oral mucosa is somewhat dry. HEENT is unremarkable. Chest appears to be clear to auscultation and percussion. Heart sounds are regular and rhythmic. I do not hear any gallop or murmur. Abdomen is extremely sore, tender. Bowel sounds diminished. Extremities showed diminished pulses. No significant edema. Neurologic: She is in painful discomfort. DIAGNOSTIC DATA: Her blood work shows white count 11,420, hemoglobin 7.5, hematocrit 24.5. Sodium is 138, potassium 5.3, BUN is 31, creatinine 5.3. This is predialysis. Albumin is 2.6. Her most recent chest x-ray was done today. I do not have any reading on it yet. IMPRESSION: 1. The patient had ischemic colitis, status post colectomy. 2. History of coronary artery disease, status post stent to LAD with stable ischemic heart disease. 3. End stage renal disease on hemodialysis. 4. Chronic obstructive pulmonary disease. RECOMMENDATIONS: At this point in time, we will continue conservative measures. Surgical Service is following her on a daily basis. We will see her as needed for changes in her cardiac status. At this point in time, she seems to be very stable cardiac wood. cc: Collin Roque MD
--- NOTE | 2017-01-07 14:01 | PROGRESS NOTE ---
DATE: 01/07/2017 SUBJECTIVE: She is somewhat tearful today, and perhaps confused and delusional. OBJECTIVE: Vital Signs: Blood pressure 120/79, heart rate 90, respirations 19, afebrile. General: She is in no acute distress. Skin: Warm and dry. Conjunctivae are pink. Neck: Neck veins are not distended. Heart: Regular, without gallops. Lungs: Equal, without crackles. Abdomen: Obese and soft. Her ostomy appears viable. Good bowel sounds. Extremities: Have 1+ edema. No clubbing or cyanosis. LABORATORY DATA: Sodium 138, potassium 5.3, chloride 104, bicarbonate 22, BUN 31, creatinine 5.0. IMPRESSIONS: 1. End-stage kidney disease. Continue her routine hemodialysis today, 2 potassium bath with 32 bicarbonate. 2. Electrolytes acceptable. Plan as above. 3. Acid base in target. 4. Recent ischemic bowel. Still has some abdominal pain. Otherwise, improving. cc: Jose David Hollingsworth MD
[2017-01-08] MEDS: DILAUDID IV PRN ×3 (00:35→22:27)
[2017-01-08] MEDS: MERREM 500 MG in NS 50 ML IV SCH ×4 (01:45→23:30)
[2017-01-08] MEDS: MORPHINE IV PRN (02:00)
[2017-01-08 05:21] LABS: BASO% 0.7 % (0.0-0.8); EOS% 5.6 % (0.0-10.0); HEMATOCRIT 26.4 % (37.0-47.0); HEMOGLOBIN 8.2 g/dL (12.0-16.0); IMM GRAN# 0.04 X1000 (0.0-0.04); IMM GRAN% 0.4 % (0.0-0.5); LYMPH# 1.68 X1000 (1.2-3.4); LYMPH% 15.6 % (20.5-51.1); MANUAL DIFF NEEDED? NO; MCH 34.3 PG (27-31); MCHC 31.1 g/dL (33-37); MCV 110.5 FL (81-99); MONO# 1.09 X1000 (0.11-0.59); MONO% 10.1 % (1.7-9.3); MPV 10.1 FL (7.4-10.4); NEUT% 67.6 % (42.2-75.2); PLT 393 X1000 (130-400); RBC 2.39 XMIL (4.2-5.4)
[2017-01-08 05:43] LABS: CALCIUM 8.5 mg/dL (8.8-10.2); POTASSIUM 4.3 mmol/L (3.5-5.1); TOTAL BILIRUBIN 0.29 mg/dL (0.20-1.00); TOTAL PROTEIN 6.4 g/dL (6.3-8.3)
--- NOTE | 2017-01-08 07:28 | PROGRESS NOTE ---
DATE: 01/08/2017 SUBJECTIVE: Patient is definitely more alert and awake. Able to talk normally. Refers some intermittent pain around the surgical wound. No fever or chills noted OBJECTIVE: Vital Signs: Temperature 97.9 degrees, heart rate 92, respiratory rate 14, blood pressure 116/78, O2 saturation 97% on room air. General Examination: This is a chronically ill- looking and frail, 71-year-old female lying in bed, in no acute distress. HEENT: Head is normocephalic, atraumatic. Anicteric sclerae and pale conjunctivae. Mucous membranes moist. Neck: Supple. No JVD noted. No carotid bruits. No lymphadenopathy. No thyromegaly. Cardiovascular: S1, S2 heard. No murmurs, gallops, or rubs. Regular rate and rhythm. Respiratory: Coarse breath sounds present in both bases but better in comparing with yesterday. Patient is not using any accessory muscles or having work of breathing. Abdomen: Soft. Ileostomy bag on the right side. No signs of peritoneal irritation. Extremities: Mild edema in both lower extremities. No clubbing or cyanosis. Neurological: Patient is more alert and awake. Moves 4 extremities. LABORATORY DATA: White cell count 10.74, hemoglobin 8.2, hematocrit 26.4, platelets 393,000. BMP remarkable for BUN 26 and creatinine 4.5. ASSESSMENT AND PLAN: 1. Acute respiratory failure. That condition has resolved. Patient is on room air. 2. Ischemic transverse colon, status post right hemicolectomy. General surgery is following and they said that the patient is doing very good from their standpoint. Will continue to follow recommendations from them. 3. Septic shock. Vasopressor was discontinued yesterday. Blood pressure is between 100 and 110. 4. End-stage renal disease, on hemodialysis. Dr. Hollingsworth is following this patient. We will continue following recommendations. 5. Physical deconditioning. Physical therapy has been consulted and patient will be transferred to the floor from the surgical floor. cc: Gabriel Mi MD
--- NOTE | 2017-01-08 09:13 | Diag Imaging Result Document ---
PROCEDURE NAME: CHEST-PORTABLE - 01/08/2017 PORTABLE CHEST: Compared with 01/07/2017. FINDINGS: There is stable elevation of the right hemidiaphragm. There is associated mild subsegmental atelectasis at the medial right base. The remainder of the lungs appear essentially clear. There is no substantial pleural effusion or pneumothorax identified. Heart size is stable. IMPRESSION: Stable elevation of right hemidiaphragm with mild right basilar atelectasis.
[2017-01-08] MEDS: ASPIRIN NG SCH (09:22)
[2017-01-08] MEDS: PLAVIX NG SCH (09:22)
--- NOTE | 2017-01-08 15:06 | PROGRESS NOTE ---
DATE: 01/08/2017 SUBJECTIVE: Feels well, she is in good spirits. She is getting her hair fixed this morning. No abdominal pain. She is tolerating a diet. OBJECTIVE: Vital signs: Temperature is 97.8, pulse 92, blood pressure 131/61, O2 saturation 97% on room air. General: She is alert, she is somewhat disoriented at times but pleasantly so. Cardiovascular: Normal rate, regular rhythm. She is on a little bit of supplemental O2 but her oxygen saturations are okay. Abdomen: Soft, nontender. Incision clean, dry and intact. Ostomy pink, viable, stool and gas in the bag is functioning well. LABS: I have reviewed her labs. White count down to 10, hematocrit stable at 26. Potassium better at 4.3, creatinine is 4.5, glucose good at 98. ASSESSMENT/PLAN: This is a 71-year-old female with a right colon ischemia status post right colectomy with end ileostomy. She has had return of bowel function. Doing very well from a surgical standpoint. Her enteral intake is improving and they have transfer orders for her to move the floor. Will continue to follow her along but she is progressing well. cc: Tracy Shaffer MD
[2017-01-09 05:58] LABS: BASO% 0.6 % (0.0-0.8); EOS# 0.54 X1000 (0.0-0.7); EOS% 4.2 % (0.0-10.0); HEMATOCRIT 26.8 % (37.0-47.0); HEMOGLOBIN 8.6 g/dL (12.0-16.0); IMM GRAN# 0.04 X1000 (0.0-0.04); IMM GRAN% 0.3 % (0.0-0.5); LYMPH# 1.64 X1000 (1.2-3.4); LYMPH% 12.7 % (20.5-51.1); MANUAL DIFF NEEDED? NO; MCH 34.5 PG (27-31); MCHC 32.1 g/dL (33-37); MCV 107.6 FL (81-99); MONO# 1.13 X1000 (0.11-0.59); MONO% 8.7 % (1.7-9.3); MPV 10.3 FL (7.4-10.4); NEUT% 73.5 % (42.2-75.2); PLT 464 X1000 (130-400); RBC 2.49 XMIL (4.2-5.4)
[2017-01-09 06:14] LABS: CALCIUM 8.5 mg/dL (8.8-10.2); POTASSIUM 4.5 mmol/L (3.5-5.1); TOTAL BILIRUBIN 0.28 mg/dL (0.20-1.00); TOTAL PROTEIN 6.6 g/dL (6.3-8.3)
--- NOTE | 2017-01-09 06:38 | PROGRESS NOTE ---
DATE: 01/09/2017 SUBJECTIVE: Patient transferred up to the floor from the ICU doing well. Tolerating full liquid diet, having ostomy output. The patient is without major complaints. OBJECTIVE: Vital Signs: Patient is currently afebrile. Her vital signs are stable. General: No acute distress. More alert and interactive today per. Cardiovascular: Regular rate and rhythm. Lungs: Grossly clear. Abdomen: Soft, appropriately tender. Ostomy is functioning. It appeared to be viable. LABORATORY: White blood cell count 12. ASSESSMENT AND PLAN: A 71-year-old female, status post right hemicolectomy with end ileostomy for ischemic colon. 1. Status post right hemicolectomy. At this time patient is tolerating full liquid diet and is having return of bowel function. Overall, clinical status is improving. I suspect at this time that she can probably be advanced to a GI soft diet if okay with other teams and continue to monitor. Her white blood cell count is up slightly. She is on antibiotics. We will continue to monitor. 2. Multiple medical comorbidities currently being managed by the hospitalist service. cc: Stevo Jovel MD
--- NOTE | 2017-01-09 07:26 | Diag Imaging Result Document ---
PROCEDURE NAME: CHEST-PORTABLE - 01/07/2017 PORTABLE CHEST: COMPARISON: 01/11/2017. FINDINGS: The nasogastric tube has been removed. Poor inspiratory effort. The heart is mildly prominent and there is mild central vascular prominence. No pleural effusion is identified. No consolidation. There are fewer markings in the right base than on the prior study. Vascular prominence is slightly less pronounced. IMPRESSION: Mild interval improvement.
--- NOTE | 2017-01-09 07:53 | Diag Imaging Result Document ---
PROCEDURE NAME: CHEST-PORTABLE - 01/09/2017 PORTABLE CHEST X-RAY, 01/09/2017: COMPARISON: 01/08/2017. FINDINGS: There is slightly worsening infiltrate or atelectasis at the right lower lobe. The left lung remains clear. Heart size remains top normal. IMPRESSION: Slight worsening infiltrate or atelectasis at the right lower lobe.
[2017-01-09] MEDS ORDERED: NS 2,000 ML ONE (09:13)
[2017-01-09] MEDS ORDERED: HEPARIN ONE (09:14)
[2017-01-09] MEDS: MERREM 500 MG in NS 50 ML IV SCH ×3 (09:35→21:11)
[2017-01-09] MEDS ORDERED: NS 2,000 ML MISC PRN (10:32)
[2017-01-09] MEDS ORDERED: TIGHT: 0.2 ML/HR MISC PRN (10:32)
[2017-01-09] MEDS ORDERED: HEPARIN IV PRN (10:32)
--- NOTE | 2017-01-09 12:50 | PROGRESS NOTE ---
DATE: 01/09/2017 SUBJECTIVE: The patient is more alert and awake. Doing fine. No complaints today. OBJECTIVE: Vital Signs: Temperature 98.4 degrees, heart rate 88, respiratory rate 18, blood pressure 123/69, O2 saturation 95% on room air. General: This a chronically ill-looking and frail 71-year-old female lying in bed in no acute distress. HEENT: Head is normocephalic, atraumatic. Anicteric sclerae and pale conjunctivae. Mucous membranes moist. Neck supple. No JVD noted. No carotid bruits. No lymphadenopathy. No thyromegaly. Cardiovascular: S1, S2 heard. No murmurs, gallops, or rubs. Regular rate and rhythm. Respiratory: Clear bilaterally to auscultation. No work of breathing or using accessory muscles. Abdomen is soft. Midline surgical wound covered with dressing. Bowel sounds present. There is also ostomy bag on the right side of the abdomen. No signs of peritoneal irritation. Extremities: Mild edema in both lower extremities. No clubbing or cyanosis. Neurologic: The patient is more alert and awake. Moves 4 extremities. LABORATORY DATA: Reviewed. ASSESSMENT AND PLAN: 1. Acute respiratory failure. This condition has resolved. 2. Ischemic transverse colon, status post right hemicolectomy. Today is postop day 8. According to Dr. Jovel, the primary surgeon, she is doing fine. We will continue follow recommendations. 3. Septic shock, resolved. She is not on any more vasopressors. 4. End-stage renal disease on hemodialysis as per Dr. Hollingsworth. 5. Physical deconditioning. Physical Therapy has been consulted. As soon as this patient is cleared by all specialties, [facility] cc: Gabriel Mi MD
[2017-01-09] MEDS ORDERED: NS 1,000 ML ONE (12:53)
[2017-01-09] MEDS: PLAVIX NG SCH (13:50)
[2017-01-09] MEDS: ASPIRIN NG SCH (13:50)
[2017-01-09] MEDS: PROAMATINE PO SCH ×2 (13:51→17:11)
[2017-01-09] MEDS: XANAX PO SCH ×2 (13:51→17:11)
--- NOTE | 2017-01-09 15:16 | PROGRESS NOTE ---
DATE: 01/09/2017 TIME SEEN: 0715. SUBJECTIVE: Ms. Marino is resting quietly in bed. She denies any chest pain or increased work of breathing. States that she is just a little bit hungry today. No complaints. OBJECTIVE: Vital signs: Her most recent vital signs, her last temperature 98.7 degrees, blood pressure 141/64, heart rate 90, respirations are 18. She is on room air. Last recorded saturation is 97%. She has had 890 in, 850 out per fecal drainage. Labs: This a.m., sodium 140, potassium 4.5, chloride 99, CO2 22, BUN 41, creatinine 6.2, glucose 102. Her anion gap is 19, calcium is 8.5, albumin is 3. White count 12.92, hemoglobin 8.6, hematocrit 26.8, with a platelet count of 464,000. PHYSICAL EXAMINATION: General: This is a 71-year-old white female. She is currently resting in bed. She is in no acute distress. Skin: Warm and dry. HEENT: Normocephalic , atraumatic. Conjunctivae pink. She has NINI. Mucous membranes moist. Neck: Supple. Trachea midline. No JVD. Cardiovascular: She is regular rate and rhythm. Lungs: Clear to auscultation anteriorly. Equal excursion. Abdomen: Round, soft, nontender. She has a positive colostomy bag to the right upper quadrant. No tenderness noted. Genitourinary: Minimal void with dialysis assist. Extremities: Have no edema. No clubbing or cyanosis. Neurological: She is alert and oriented x3. ASSESSMENT AND PLAN: 1. End-stage renal disease. Patient is due for dialysis today. We will place her on a 2 K bath. She is to dialyze for 3.5 hours. We will attempt to pull patient to her dry weight. 2. Electrolytes and acid-base balance. These remain stable. 3. Anemia. This remains low but acceptable. We will continue to monitor. 4. Ischemic transverse colon resection with right hemicolectomy, postop day #8. Dr. Jovel continues to monitor and follow. I would like to thank you for allowing us to follow with this patient. Seen, data reviewed, discussed with Abad Hernandez on 01/09/17. I agree with the above assessment and plan of care. rg Dictated by SYEDA Duncan for Jose David Hollingsworth MD cc: SYEDA Duncan MD [facility]
[2017-01-09] MEDS: MORPHINE IV PRN (17:12)
[2017-01-09] MEDS: PRAVACHOL PO SCH (21:12)
[2017-01-09] MEDS: DESYREL PO SCH (21:12)
[2017-01-09] MEDS: LOPRESSOR PO SCH (23:50)
[2017-01-10] MEDS ORDERED: MERREM 500 MG in NS 50 ML IV SCH (02:30)
[2017-01-10 05:21] LABS: BASO% 0.7 % (0.0-0.8); EOS# 0.69 X1000 (0.0-0.7); EOS% 5.5 % (0.0-10.0); HEMATOCRIT 28.9 % (37.0-47.0); HEMOGLOBIN 9.2 g/dL (12.0-16.0); IMM GRAN# 0.04 X1000 (0.0-0.04); IMM GRAN% 0.3 % (0.0-0.5); LYMPH# 1.75 X1000 (1.2-3.4); LYMPH% 13.9 % (20.5-51.1); MANUAL DIFF NEEDED? YES; MCH 34.2 PG (27-31); MCHC 31.8 g/dL (33-37); MCV 107.4 FL (81-99); MONO# 1.06 X1000 (0.11-0.59); MONO% 8.4 % (1.7-9.3); MPV 10.7 FL (7.4-10.4); NEUT% 71.2 % (42.2-75.2); PLT 548 X1000 (130-400); RBC 2.69 XMIL (4.2-5.4)
[2017-01-10 05:39] LABS: ALBUMIN 3.2 g/dL (3.5-5.0); CALCIUM 8.9 mg/dL (8.8-10.2); POTASSIUM 3.7 mmol/L (3.5-5.1); TOTAL BILIRUBIN 0.28 mg/dL (0.20-1.00); TOTAL PROTEIN 7.1 g/dL (6.3-8.3)
[2017-01-10] MEDS: MERREM 500 MG in NS 50 ML IV SCH ×2 (05:41→14:20)
--- NOTE | 2017-01-10 05:59 | PROGRESS NOTE ---
DATE: 01/10/2017 SUBJECTIVE: The patient is doing well. No major issues. Tolerating a full liquid diet. Having ostomy output. No major complaints. OBJECTIVE: Vital Signs: Patient is currently afebrile. Her vital signs are stable. General: No acute distress. Cardiovascular: Regular rate and rhythm. Lungs: Grossly clear. Abdomen: Soft, appropriately tender. Incision is healing well. Ostomy is viable. LABORATORY: White blood count 12. ASSESSMENT AND PLAN: A 71-year-old female, status post right hemicolectomy with end ileostomy for ischemic colon. 1. Status post right hemicolectomy. At this time, patient is tolerating a full liquid diet. We will advance her to a gastrointestinal soft diet. From a surgical point of view, she could likely be discharged. We will need to watch her ileostomy output to make sure she does not get dehydrated. 2. Multiple medical comorbidities currently being managed by the hospitalist service. cc: Stevo Jovel MD
[2017-01-10 06:53] LABS: EOS 8 % (1-10); LYMPHS 20 % (21-51); MONO 4 % (1-9)
[2017-01-10 06:54] LABS: HYPOCHROM 1+
--- NOTE | 2017-01-10 08:43 | Diag Imaging Result Doc PS360 ---
CHEST-PORTABLE - 01/10/2017 INDICATION: Respiratory failure COMPARISON: 01/09/2017 FINDINGS: Stable severely low lung volumes. Stable bandlike airspace opacity in the right lung base. No new infiltrates. Stable mild cardiomegaly. IMPRESSION: No change from prior. Electronically signed by Jaylon Coombs 01/10/2017 8:40 AM
[2017-01-10] MEDS: PLAVIX NG SCH (09:22)
[2017-01-10] MEDS: ASPIRIN NG SCH (09:22)
[2017-01-10] MEDS: CELEXA PO SCH (09:23)
[2017-01-10] MEDS: PROAMATINE PO SCH ×3 (09:23→20:01)
[2017-01-10] MEDS: XANAX PO SCH ×3 (09:24→20:01)
[2017-01-10] MEDS: LOPRESSOR PO SCH ×2 (09:25→20:03)
--- NOTE | 2017-01-10 10:46 | PROGRESS NOTE ---
DATE: 01/10/2017 TIME SEEN: 0750. SUBJECTIVE: Ms. Marino is resting quietly in bed. She denies chest pain or increased work of breathing. Her family is at her bedside. She states that she has been hungry. She has no complaints. She states that she feels well. OBJECTIVE: Her most recent vital signs: Temperature 98 degrees, blood pressure 105/46, heart rate 86, respirations are 16. She is on room air. Last recorded saturation is 98%. She has had 480 in. She has had 2805 out with 2 L on dialysis. LABORATORY DATA: Her labs this a.m.: Sodium 139, potassium 3.7, chloride 95, CO2 of 25. BUN 30, creatinine 4.7, glucose 134. Anion gap of 19. Calcium is 8.9, albumin 3.2. White count 12.6, hemoglobin 9.2, hematocrit 28.9 with a platelet count of 548,000. PHYSICAL EXAMINATION: General: This is a 71-year-old white female. She is currently resting in bed. She is in no acute distress. Her skin is warm and dry. HEENT: Normocephalic, atraumatic. Conjunctivae pink. She has NINI. Mucous membranes moist. Neck is supple. Trachea midline. No JVD. Cardiovascular: She has regular rate and rhythm. Lungs are clear to auscultation anteriorly. Equal excursion. Abdomen is round, soft, nontender. Positive bowel sounds with a positive colostomy bag to the right upper quadrant with dark bile green material. No tenderness noted. Genitourinary: Minimal void with dialysis assist. Extremities have no edema. No clubbing or cyanosis. Neurologic: She is alert and oriented x3. ASSESSMENT AND PLAN: 1. End-stage renal disease. The patient is due for her routine dialysis treatment in the a.m. Otherwise, no need for intervention today. 2. Electrolytes, acid-base balance, and anemia. These remain acceptable with no need for intervention. 3. Ischemic colon resection with right hemicolectomy followed by Dr. Jovel with no need for intervention. I would like to thank you for allowing us to follow with this patient. Seen, data reviewed, discussed with Abad Hernandez on 01/10/17. I agree with the above assessment and plan of care. rg Dictated by SYEDA Duncan for MD Johann Bonilla#: [id number] cc: SYEDA Duncan MD [facility]
[2017-01-10] MEDS: MORPHINE IV PRN ×2 (11:24→14:32)
--- NOTE | 2017-01-10 13:50 | PROGRESS NOTE ---
DATE: 01/10/2017 SUBJECTIVE: This patient is completely alert and oriented x3. She is doing fine. She is only complaining of low back pain. Otherwise, she is stable. OBJECTIVE: Vital Signs: Temperature 97.9 degrees, pulse 88, respiratory rate 16, blood pressure 95/40, O2 saturation 95% on room. HEENT: Head normocephalic. No trauma. PERRLA. Neck: Supple. No JVD. No masses. Central trachea. Chest: Clear to auscultation. No wheezing. No rales. Abdomen: Soft. Midline surgical wound covered with no sign of infection or bleed. Bowel sounds present. Ileostomy bag on the right lower side of the abdomen without any problems. No signs of peritoneal irritation. Extremities: No edema. No clubbing. No cyanosis. Neurological: Patient is alert and oriented x3. No focal deficits. LABORATORY: WBC 12.6, hemoglobin 9.2, hematocrit 28.9, platelets 548,000. Sodium 139, potassium 3.7, chloride 95, bicarbonate 25, BUN 30, creatinine 4.7, glucose 134, calcium 8.9. ASSESSMENT AND PLAN: 1. Ischemic transverse colon status post right hemicolectomy postoperative day #9 and she is getting better. Dr. Jovel from Surgery Department is following this patient. She is close to be discharged. No signs of peritoneal irritation and the wound is healing fine. The diet has been advanced. Hopefully tomorrow we are going to be able to discharge this patient. [facility] with [facility] care and physical therapy. 2. Acute respiratory failure. Resolved. 3. Septic shock. Resolved. She is not on any pressors at this moment. 4. End-stage renal disease on hemodialysis. Continue as scheduled. 5. Physical deconditioning. Physical therapy is on board. Continue with the same management. Hopefully she will be discharged with physical therapy as well. cc: Constantino Briscoe MD
--- NOTE | 2017-01-10 17:09 | CONSULTATION ---
DATE OF CONSULTATION: 01/10/2017 CONCLUSION: The patient is status post right hemicolectomy and end ileostomy for ischemic colitis. This is postoperative day 10. The patient on chest x-ray does have a right lower lobe opacity which could be a pneumonia. Patient does have 1 blood culture for a coagulase-negative staph. I think this is a contaminant and antibiotic treatment of it is not is not required. Likewise the patient has yeast in her urine. I think this fungal urinary tract infection is asymptomatic and again this does not merit treatment either. RECOMMENDATIONS: I agree with the patient's current antibiotic therapy of vancomycin and meropenem. The doses of the antibiotics have been modified because of the patient's renal failure. I have changed meropenem specifically from 500 mg every 8 hours to 500 mg IV every 12 hours. When the patient goes back to the [facility] she could get her vancomycin dose and 1 dose of the meropenem after dialysis and then she would only have 1 dose of meropenem to be given at [facility] in the evening. I would suggest continuing both of the antibiotics for 1 more week. DISCUSSION: The patient had severe abdominal pain. She eventually underwent surgery. She had ischemia of the colon. As mentioned above, Dr. Jovel performed a right hemicolectomy and an end ileostomy for ischemic colitis. She postoperatively has done relatively well. Her chest x-ray shows a right lower lobe opacity. Her CBC shows a white count of 12,600, hemoglobin 9.2, and platelet count 548,000. Creatinine is 4.7. GFR is 9. Liver function studies are normal. The patient's urine is growing yeast and 1 blood culture is growing coagulase-negative staph. [employer]IC[employer]ED [employer] HISTORY: She is a 4, para 3, AB1. PREVIOUS HOSPITALIZATIONS AND OPERATIONS: She has had a labor and delivery, 1 miscarriage. She was in once because of syncope. She has had surgery on her right ankle, 2 surgeries on her left breast for cancer, cholecystectomy, placement of a left upper extremity AV fistula. The patient's chart states that she has had a colectomy and that she had colon cancer in the past. MEDICAL DISEASES: Positive for colon cancer as mentioned above. The patient also has ischemic colitis, gout, stroke, dementia, COPD, end-stage renal disease, hypertension, myocardial infarction and both colon and breast cancer. INFECTIOUS DISEASE HISTORY: Positive for pneumonia and UTI. FAMILY HISTORY: Positive for cancer. REVIEW OF SYSTEMS: Eyes and ears: Patient denies difficulty hearing or seeing. Neck: No stiffness. Respiratory: No cough or wheezing, no shortness of breath at rest. Cardiovascular: No chest pain or palpitations. GI: The patient has just started a soft diet now. She has an ileostomy in place. Genitourinary: No flank pain or dysuria. Neurologic: The patient told me that her memory is not quite as good as it used to be. She does not have any unilateral motor or sensory loss. Endocrine: Patient does not have diabetes or thyroid disease. SOCIAL HISTORY: The patient lives at [facility]. She is . ALLERGIES: She has no known drug allergies. HOME MEDICATIONS: Consist of Plavix, Celexa, Xanax, hydrocodone, metoprolol, trazodone, pravastatin, folic acid, Colace, probiotic and aspirin. PHYSICAL EXAMINATION: Vital Signs: Temperature is 97.9 degrees, pulse 88, respirations 16, blood pressure 95/40. The patient weighs 197 pounds. Generally: This is a somewhat ill-appearing elderly female but considering what she has recently been through I think she looks amazingly good. Head, eyes, ears, nose and throat: She can hear my spoken words and see near objects. There are no white patches on her tongue. Neck: No meningismus. Thorax: No increased AP diameter. Lungs: Clear to auscultation. Cardiovascular: Regular heart rate. Abdomen: Soft and nontender. The abdominal incision is intact. The patient has an ileostomy in place which is functional. Neurologic: Patient is awake. She moved her extremities to request. There is no tremor. Her sensation is intact to touch. Her memory, as regarding her medical history is slightly decreased. Integument: I did not notice any rash. Thank you for the consult. cc: Laureano Ornelas MD
[2017-01-10] MEDS: DESYREL PO SCH (20:00)
[2017-01-10] MEDS: PRAVACHOL PO SCH (20:01)
[2017-01-11] MEDS ORDERED: MERREM 500 MG in NS 50 ML IV SCH (02:00)
[2017-01-11 05:50] LABS: BASO% 0.9 % (0.0-0.8); EOS# 0.93 X1000 (0.0-0.7); EOS% 7.8 % (0.0-10.0); HEMATOCRIT 29.4 % (37.0-47.0); HEMOGLOBIN 9.3 g/dL (12.0-16.0); IMM GRAN# 0.04 X1000 (0.0-0.04); IMM GRAN% 0.3 % (0.0-0.5); LYMPH# 2.61 X1000 (1.2-3.4); MANUAL DIFF NEEDED? YES; MCH 34.1 PG (27-31); MCHC 31.6 g/dL (33-37); MCV 107.7 FL (81-99); MONO# 0.94 X1000 (0.11-0.59); MONO% 7.9 % (1.7-9.3); NEUT% 61.1 % (42.2-75.2); PLT 589 X1000 (130-400); RBC 2.73 XMIL (4.2-5.4)
[2017-01-11 05:54] LABS: CALCIUM 8.6 mg/dL (8.8-10.2); POTASSIUM 4.6 mmol/L (3.5-5.1); TOTAL BILIRUBIN 0.19 mg/dL (0.20-1.00); TOTAL PROTEIN 6.8 g/dL (6.3-8.3)
--- NOTE | 2017-01-11 06:14 | PROGRESS NOTE ---
DATE: 01/11/2017 SUBJECTIVE: Patient doing well. No major issues. Tolerating her diet. OBJECTIVE: Vital Signs: Patient is currently afebrile. Her vital signs are stable. General: No acute distress. Cardiovascular: Regular rate and rhythm. Lungs: Grossly clear. Abdomen: Soft, appropriately tender. Incision healing well. Ostomy is viable. LABORATORY: Pending. ASSESSMENT AND PLAN: A 71-year-old female, status post right hemicolectomy with end- ileostomy for ischemic colon. 1. Postoperative state. At this time, patient is tolerating a gastrointestinal soft diet. From a surgical point of view, she can be discharged whenever everybody is okay with her discharge. We need to watch her ileostomy output to make sure she does not get too dehydrated. At this point, she is not at that point. 2. Multiple medical comorbidities currently being managed by the hospitalist service. cc: Stevo Jovel MD
[2017-01-11 06:34] LABS: BANDS 4 % (0-1); EOS 6 % (1-10); LYMPHS 28 % (21-51); MONO 10 % (1-9)
[2017-01-11] MEDS ORDERED: NS 2,000 ML ONE (07:00)
[2017-01-11] MEDS ORDERED: HEPARIN ONE (07:00)
--- NOTE | 2017-01-11 07:07 | Diag Imaging Result Doc PS360 ---
EXAM: CHEST-PORTABLE HISTORY: respiratory failure COMMENT: Inspiration is suboptimal. There is opacity in the lower mid right lung which has the appearance of fluid loculated in the fissure. There may also be some subsegmental atelectasis in the right middle lobe. Compared to the previous study of 01/10/2017 the inspiration is even less optimal. Otherwise has been no appreciable change. IMPRESSION: Stable chest. Electronically signed by Robi Christy 01/11/2017 7:04 AM
[2017-01-11] MEDS ORDERED: TIGHT: 0.2 ML/HR MISC PRN (07:15)
[2017-01-11] MEDS ORDERED: NS 2,000 ML MISC PRN (07:15)
[2017-01-11] MEDS ORDERED: HEPARIN IV PRN (07:15)
[2017-01-11 07:44] VITALS: BP 100/48
[2017-01-11] MEDS: MORPHINE IV PRN ×2 (07:56→13:08)
--- NOTE | 2017-01-11 08:41 | PROGRESS NOTE ---
DATE: 01/11/2017 SUBJECTIVE: The patient is status post right hemicolectomy and end-ileostomy for ischemic colitis. This is postoperative day 11. The patient also has a right lower lobe opacity, which could be pneumonia. MEDICATIONS: The patient is getting a combination of meropenem and vancomycin. As per above, this is day 11 of treatment with both agents. PHYSICAL EXAMINATION: Vital Signs: Temperature is 98.3 degrees, pulse 92, respirations 16, blood pressure 100/48. The patient does not have any complaints this morning. Lungs : Clear to auscultation. Cardiovascular: Regular heart rate. Abdomen/Flanks: Soft and nontender. Extremities: The patient has in her groin a triple-lumen catheter placed. The patient also has in the upper extremity an AV fistula through which she gets dialysis. LABORATORY AND X-RAY: Chest x-ray shows right lower lobe opacity. CBC shows a white count of 11,860, hemoglobin 9.3, and platelet count 389,000. Creatinine is 6.9, GFR is 6. Chest x-ray shows a right lower lobe opacity. PLAN: The plan would be to go ahead and continue with the current antibiotics, namely meropenem and vancomycin, for at least another week. COMORBIDITIES: The patient's comorbidities include she is very elderly. She has just recently had a partial colectomy. She has end-stage renal disease, for which she is on hemodialysis. cc: [facility]ano [facility]nelas [facility]
--- NOTE | 2017-01-11 09:17 | PROGRESS NOTE ---
DATE: 01/11/2017 TIME SEEN: 0750. SUBJECTIVE: Ms. Marino is resting quietly in bed. She has family at her bedside. She is getting ready to go down to dialysis. She denies any chest pain. No increased work of breathing. OBJECTIVE: Her most recent vital signs, her temperature is 97.9, blood pressure 98/60, heart rate 70, respirations 18. She is on room air. Last recorded saturation 97%. She has had 76 in. She has had 300 out with 200 per drain and 300 per fecal device, for total of 600. LAB: Sodium 138, potassium 4.6, chloride 97, CO2 of 24, BUN 53, creatinine 6.9 , glucose 96, anion gap 17, calcium 8.6, albumin 3. White count 11.86, hemoglobin 9.3, hematocrit 29.4, with a platelet count of 589. Chest x-ray completed this a.m. indicates stable chest. PHYSICAL EXAMINATION: General: This is a 71-year-old white female. She is resting in bed. She is in no acute distress. She appears chronically ill. Skin: Warm and dry. HEENT: Normocephalic, atraumatic. Conjunctivae pale. She has NINI. Mucous membranes moist. Neck: Supple. Trachea midline. No JVD. Cardiovascular: Regular rate and rhythm. Lungs: Clear to auscultation. Equal excursion. Abdomen: Round, soft, nontender. Positive bowel sounds with a colostomy bag to the right upper quadrant. This is draining a bile yellow- green. Genitourinary: Not inspected. Minimal void with dialysis assist. Extremities: Have no edema. No clubbing or cyanosis. Neurological: She is alert and oriented x3. ASSESSMENT AND PLAN: 1. End-stage renal disease. Patient is due for her routine treatment today. We will place her on a 2K bath. She is to dialyze for 3.5 hours. We will attempt to pull patient to her last inpatient dry weight. 2. Electrolytes and acid-base balance. These are stable. 3. Anemia. This is low, but acceptable. No need for intervention. 4. Ischemic: Dr. Jovel continues to follow. She is doing well. She is eating well. I would to thank you for allowing us to follow with this patient. Seen, data reviewed, discussed with Abad Hernandez on 01/11/17. I agree with the above assessment and plan of care. rg Dictated by SYEDA Duncan for Jose David Hollingsworth MD cc: SYEDA Duncan MD [facility]
[2017-01-11] MEDS: PLAVIX NG SCH (10:20)
[2017-01-11] MEDS: XANAX PO SCH (10:20)
[2017-01-11] MEDS: PROAMATINE PO SCH (10:20)
[2017-01-11] MEDS: LOPRESSOR PO SCH (10:20)
[2017-01-11] MEDS: ASPIRIN NG SCH (10:20)
[2017-01-11] MEDS: CELEXA PO SCH (10:20)
--- NOTE | 2017-01-11 11:44 | DISCHARGE SUMMARY ---
ADMISSION DATE: 12/31/2016 DISCHARGE DATE: DISCHARGE DIAGNOSES: 1. Ischemic transverse colon, status post extended right hemicolectomy with end ileostomy dated 12/31/2016. 2. Acute respiratory failure, resolved. 3. Septic shock, resolved. 4. End-stage renal disease on hemodialysis Monday, Monday, and Monday. 5. Physical deconditioning. CONSULTS: Surgery department, Dr. Jovel. Nephrology department, Dr. Hollingsworth. Cardiology department, Dr. Story. Infectious disease department, Dr. Ornelas. HOSPITAL COURSE: This is a 71-year-old, female with a past medical history of breast cancer, COPD, end-stage renal disease on hemodialysis, and others. Came to the emergency department on 12/31/2016 with the chief complaint of acute onset abdominal pain that started the day before admission. She described the pain as sharp, located at the right upper quadrant, and radiated to her back, associated with nausea and vomiting. At that moment, she denied fever, chills, chest pain, or shortness of breath. CT of the abdomen and pelvis showed pneumatosis coli involving the proximal transverse colon, compatible with colitis. It also showed intrahepatic gas in the portal branches and probably related to pneumatosis coli as well. Dr. Jovel from surgery was consulted. He decided to go ahead and take this patient to the OR. He did an exploratory laparotomy. She presented with ischemia of the hepatic flexure to the transverse colon, and extended right hemicolectomy with an end ileostomy was performed. Then this patient was transferred to the ICU for close monitoring. This patient was intubated. Also, we started this patient on pressors because of the probably septic shock. Nephrology department was consulted because this patient has been on hemodialysis secondary to her end-stage renal disease. Then this patient was extubated and we stopped the pressors because she was improving. On her postoperative day #5, she was extubated but she was still on pressors. She was tolerating diet. Then she was transferred to the medical floor. We continued with hemodialysis, antibiotics, and the rest of her treatment. This patient was improving on a daily basis. No mental status changes, just mild abdominal pain. She was getting her dialysis as scheduled. Surgery department evaluated this patient and they think that it is okay and safe to discharge this patient. Infectious disease department was consulted yesterday to monitor her antibiotics. They recommended to continue with the vancomycin and meropenem for at least 1 more week. This patient is going back to [facility] with physical therapy and wound care, follow up with Dr. Jovel in 1 week, and continue hemodialysis as scheduled. FOLLOWUP: Follow up with Dr. Jovel in 1 week and continue hemodialysis as scheduled. This patient will need physical therapy and wound care at [facility]. PHYSICAL EXAMINATION: Vital Signs: Temperature 98.3 degrees, pulse 92, respiratory rate 16, blood pressure 100/48, oxygen saturation 98 on room air. HEENT: Head normocephalic. No trauma. PERRLA. Neck: Supple. No JVD. No masses. Central trachea. Chest: Clear to auscultation. No wheezing. No rales. Cardiovascular: RRR. Abdomen: Soft. Midline surgical wound covered with no signs of infection or bleed. Bowel sounds present. Ileostomy bag on the right lower side of the abdomen without any problems. No signs of peritoneal irritation. Extremities: No edema. No clubbing. No cyanosis. Neurological Examination: The patient is alert and oriented x3. No focal neurological deficits. LABORATORY DATA: WBC 11.8, hemoglobin 9.3, hematocrit 29.4, platelets 589,000. Sodium 138, potassium 4.6, chloride 97, bicarbonate 24, BUN 53, creatinine 6.9, glucose 96, calcium 8.6. Albumin 3. DISCHARGE MEDICATIONS: Meropenem 500 mg IV q.12 hours for 1 week, vancomycin 1 g IV after dialysis for 1 week, alprazolam 0.5 mg p.o. t.i.d., aspirin 81 mg daily, citalopram 20 mg p.o. daily, Plavix 75 mg daily p.o., Lopressor 12.5 mg p.o. b.i.d., pravastatin 40 mg p.o. at bedtime, trazodone 150 mg p.o. at bedtime, [place] 7.5 one tablet p.o. q.8 hours p.r.n., docusate 100 mg p.o. daily, folic acid 1 mg p.o. daily, probiotic 1 tablet p.o. daily, Nepro Carb Steady 237 mL p.o. Time discharging this patient, 40 minutes. cc: Constantino Briscoe MD
== END 2017-01-11 13:49 ==
LOC: ED 12:30 → SUATTDRO 16:42 → ICU 16:42 → 4N 01-08 15:10
PROVIDERS: ATTEND Internal Medicine

== ENCOUNTER 2017-03-22 06:33 | Inpatient (IN) ==
[2017-03-22] MEDS ORDERED: NS 2,000 ML ONE ×2 (06:49→09:31)
--- NOTE | 2017-03-22 07:03 | PROVIDER DOCUMENTATION ---
HPI-Neurological Disorder - General Chief Complaint: Altered Mental Status Stated Complaint: ams Time Seen by Provider: 03/22/17 06:49 Unable to obtain history due to:: urgency Allergies/Adverse Reactions: Patient Allergies Allergy/AdvReac Type Severity Reaction Status Date / Time No Known Allergies Allergy Verified 03/15/17 11:25 Home Medications: Home Medication List Medication Instructions Recorded Confirmed Last Taken Type Aspirin 81 mg PO DAILY 05/17/16 07/04/16 07/03/16 09:00 History Clopidogrel Bisulfate [Plavix] 75 mg PO DAILY 05/17/16 01/08/17 07/03/16 09:00 History Docusate Sodium [Colace] 100 mg PO DAILY 05/17/16 07/04/16 07/03/16 09:00 History Folic Acid 1 mg PO DAILY 05/17/16 07/04/16 07/03/16 09:00 History Lactobacillus Rhamnosus GG 1 each PO DAILY 05/17/16 07/04/16 07/03/16 09:00 History [Probiotic] Metoprolol Tartrate 12.5 mg PO BID 05/17/16 01/08/17 07/03/16 21:00 History Midodrine HCl 5 mg PO TID 05/17/16 01/08/17 07/03/16 21:00 History Pravastatin Sodium 40 mg PO HS 05/17/16 01/08/17 07/03/16 21:00 History Nut.tx.impaired Renal Fxn,Soy 237 ml PO DIRECTED 06/10/16 07/04/16 07/03/16 09:00 History [Nepro Carb Steady] Alprazolam [Xanax] 0.5 mg PO TID #90 tablet 01/11/17 Unknown Rx Aspirin 81 mg NG DAILY chewtab 01/11/17 Unknown Rx Citalopram Hydrobromide [Celexa] 20 mg PO DAILY #30 tablet 01/11/17 Unknown Rx Clopidogrel [Plavix] 75 mg NG DAILY tablet 01/11/17 Unknown Rx Hydrocodone/APAP 7.5 mg/325 mg 1 tab PO Q8H PRN PRN #15 tablet 01/11/17 Unknown Rx [Lutz-7.5] Trazodone HCl 150 mg PO HS #30 tablet 01/11/17 Unknown Rx Midodrine [Proamatine] 10 mg PO TID #180 tablet 03/15/17 Unknown Rx - History of Present Illness-Neuro Nature of Presenting Problem: Patient from [facility] presents per AMS according to staff. She has a history of dementia, sepsis, uti's, and ESRD-DD. She says she had an episode of diarrhea yesterday, but denies any nausea or vomiting today or yesterday. She denies any chest pain or dyspnea. Severity: reports: mild Onset/Duration: reports: unsure Timing: reports: improving Context: reports: none Character of Altered Mental Status: reports: N/A Any recent trauma/injury?: reports: none Character of Deficits: reports: new weakness New weakness or altered sensation location:: reports: none Cognitive Baseline: alert, oriented x3 Gait Baseline: walks without assistance Associated Symptoms: reports: denies symptoms Similar Symptoms Previously?: Yes Recently seen or treated by another doctor?: Yes - Seizure First time to have a seizure?: No Witnessed seizure?: No Preceding symptoms/context:: none Character of Seizure: denies: lost consciousness Post-ictal Symptoms: reports: confusion Seizure related injury: none Review of Systems - Adult - REVIEW OF SYSTEMS - ADULT Constitutional: reports: no symptoms reported Eyes: reports: no symptoms reported Ears, Nose, Mouth & Throat: reports: no symptoms reported Cardiovascular: reports: no symptoms reported Respiratory: reports: no symptoms reported Gastrointestinal: reports: no symptoms reported Genitourinary: reports: no symptoms reported Musculoskeletal: reports: no symptoms reported Neurological: reports: see HPI Psychiatric: reports: see HPI Endocrine: reports: no symptoms reported Hematologic/Lymphatic: reports: no symptoms reported Allergic/Immunologic: reports: no symptoms reported All Other Systems: Reviewed and Negative Past History - Adult - PAST MEDICAL HISTORY-ADULT Review of Records: reports: Old Records Reviewed, Nursing Assessment Review, Medications Reviewed, Social history reviewed & non-contributory. Major Childhood Illnesses: reports: denies history Cardiovascular: reports: HTN, OR Respiratory: reports: asthma, COPD Gastrointestinal: reports: GERD, IBS, other (gastritis) Obstetrical/Gynecological: reports: other (breast cancer/ left mastectomy) Genitourinary: reports: dialysis (MWF), ESRD, kidney disease Musculoskeletal: reports: arthritis, other (gout) Neurological: reports: CVA, dementia, other (metabolic encephalopathy) Psychiatric: reports: anxiety Endocrine/Immune: reports: anemia Other Conditions: reports: denies history - PRIOR SURGERIES/PROCEDURES Surgical/Procedure History: reports: cholecystectomy, other (mastectomy left with reconstruction) - PRIOR HOSPITALIZATIONS Prior Hospitalizations: reports: none - IMMUNIZATION STATUS Childhood Immunizations: See Nurse Assessment Flu Vaccine: See Nurse Assessment - FAMILY HISTORY Family History: reviewed, not pertinent Physical Exam- Neurological - Physical Exam-Neuro Initial Vital Signs Reviewed: Yes General Appearance: appears well, alert, no apparent distress HENMT: normal ENT inspection, TMs normal Head Injury: no evidence of injury Neck: non-tender Respiratory: chest non-tender Cardiovascular: normal peripheral pulses Abdominal Exam: normal bowel sounds Lymphatic: no adenopathy Extremity: normal range of motion 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 Exam: normal hearing, normal speech, PERRL Motor/Sensory: no motor deficit Neurologic: 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 II-XII nml as tested, grossly normal Integumentary: normal color, normal turgor Psych/Mental Status: normal mood/affect - Glascow Coma Scale Total Glascow Score: 15 Progress - PLAN OF CARE/RESULTS Progress/Plan/Lab Results: Vital Signs - 8 hr 03/22/17 06:42 03/22/17 07:00 03/22/17 07:33 Temperature 99.1 F Pulse Rate 58 L 54 L Respiratory Rate 16 18 Blood Pressure 70/50 71/38 O2 Sat by Pulse Oximetry 89 L 96 03/22/17 07:55 03/22/17 08:30 03/22/17 09:04 Temperature Pulse Rate 57 L 56 L 57 L Respiratory Rate 16 15 16 Blood Pressure 75/33 117/99 79/32 O2 Sat by Pulse Oximetry 93 L 98 93 L Laboratory Results - last 24 hr 03/22/17 03/22/17 03/22/17 06:38 06:38 06:38 WBC RBC Hgb Hct MCV MCH MCHC RDW Std Deviation Plt Count MPV Immature Gran % (Auto) Neut % (Auto) Lymph % (Auto) Harrison % (Auto) Eos % (Auto) Baso % (Auto) Immature Gran # (Auto) Neut # (Auto) Lymph # (Auto) Harrison # (Auto) Eos # (Auto) Baso # (Auto) PT INR PTT (Actin FS) Specimen Type Sample Site pH pCO2 pO2 HCO3 Base Excess ABG O2 Saturation Negro Test Total Hemoglobin Liter Flow Blood Gas Modality FiO2 % Sodium 131 L Potassium 5.8 H Chloride 87 L Carbon Dioxide 23 L Anion Gap 21 BUN 45 H Creatinine 8.8 H Estimated GFR/1.73 m2 4 BUN/Creatinine Ratio 5 Glucose 109 H Calculated Osmolality 275 Calcium 8.7 L Total Bilirubin 0.11 L AST 16 ALT 6 L Alkaline Phosphatase 129 H Creatine Kinase 11 L Troponin T < 0.010 Total Protein 6.3 Albumin 3.3 L Globulin 3.0 Albumin/Globulin Ratio 1.1 Plasma Lactate 1.2 03/22/17 03/22/17 03/22/17 06:38 06:38 06:40 WBC 13.77 H RBC 3.04 L Hgb 9.6 L Hct 32.6 L MCV 107.2 H MCH 31.6 H MCHC 29.4 L RDW Std Deviation 16.3 H Plt Count 457 H MPV 10.4 Immature Gran % (Auto) 0.4 Neut % (Auto) 76.0 H Lymph % (Auto) 14.4 L Harrison % (Auto) 7.4 Eos % (Auto) 1.3 Baso % (Auto) 0.5 Immature Gran # (Auto) 0.05 H Neut # (Auto) 10.47 H Lymph # (Auto) 1.98 Harrison # (Auto) 1.02 H Eos # (Auto) 0.18 Baso # (Auto) 0.07 PT 11.1 INR 1.05 PTT (Actin FS) 38.7 H Specimen Type ARTERIAL Sample Site R RADIAL pH 7.31 L pCO2 48 H pO2 69 HCO3 24.6 Base Excess -2.0 ABG O2 Saturation 92.0 L Negro Test YES Total Hemoglobin 9.9 L Liter Flow 2.0 Blood Gas Modality CANNULA FiO2 % 28.0 Sodium Potassium Chloride Carbon Dioxide Anion Gap BUN Creatinine Estimated GFR/1.73 m2 BUN/Creatinine Ratio Glucose Calculated Osmolality Calcium Total Bilirubin AST ALT Alkaline Phosphatase Creatine Kinase Troponin T Total Protein Albumin Globulin Albumin/Globulin Ratio Plasma Lactate Orders Category Date Time Status Dialysate Bath: DIRECTED Care 03/22/17 09:30 Active Dialysate Flow: DIRECTED Care 03/22/17 09:30 Active Dialysis Blood Flow: DIRECTED Care 03/22/17 09:30 Active Dialysis Machine Settings: DIRECTED Care 03/22/17 09:30 Active Dialysis Treatment Time: DIRECTED Care 03/22/17 09:30 Active Dialysis Treatment Weight ROUTINE Care 03/22/17 09:30 Active Dialysis UF Removal Amount: DIRECTED Care 03/22/17 09:30 Active Dialyzer Type: DIRECTED Care 03/22/17 09:30 Active Uriostegui Cath Insertion ORDERED Care 03/22/17 07:42 Active IV Insertion ORDERED Care 03/22/17 07:42 Active Intake and Output-Strict ORDERED Care 03/22/17 07:42 Active NRSG - Obtain Dialysis Consent NOW Care 03/22/17 09:30 Active Notify MD/PA/SYEDA for exam NOW Care 03/22/17 07:42 Active Repeat Vital Signs .Blood Pressure Care 03/22/17 07:42 Active Repeat Vital Signs .Heart Rate Care 03/22/17 07:42 Active Repeat Vital Signs .Oxygen Saturation Care 03/22/17 07:42 Active Repeat Vital Signs .Respiratory Rate Care 03/22/17 07:42 Active Repeat Vital Signs .Temp Care 03/22/17 07:42 Active ABG [RESP] Routine Lab 03/22/17 06:40 Completed CBC WITH DIFF [HEME] Stat Lab 03/22/17 06:38 Results CK PROFILE [SP CHEM] Stat Lab 03/22/17 06:38 Completed COMPREHENSIVE METABOLIC PANEL [CHEM] Stat Lab 03/22/17 06:38 Completed LACTATE, PLASMA [CHEM] Stat Lab 03/22/17 06:38 Completed LACTATE, PLASMA [CHEM] Timed Lab 03/22/17 07:42 Ordered PROTIME WITH INR [COAG] Stat Lab 03/22/17 06:38 Completed PTT [COAG] Stat Lab 03/22/17 06:38 Completed TROPONIN T Stat Lab 03/22/17 06:38 Completed 0.9% Sodium Chloride Inj [Ns] 1,000 ml Med 03/22/17 07:42 Discontinued IV As Directed 0.9% Sodium Chloride Inj [Ns] 100 ml Med 03/22/17 07:45 Active Vasopressin [Pitressin] 40 unit IV As Directed 0.9% Sodium Chloride Inj [Ns] 2,000 ml Med 03/22/17 06:49 Discontinued .ROUTE As Directed 0.9% Sodium Chloride Inj [Ns] 2,000 ml Med 03/22/17 09:31 Discontinued .ROUTE As Directed 0.9% Sodium Chloride Inj [Ns] 2,000 ml Med 03/22/17 09:30 Discontinued MISC As Directed 0.9% Sodium Chloride Inj [Ns] 500 ml Med 03/22/17 07:42 Discontinued IV 999 mls/hr Dextrose 5%-0.45% NaCl Inj [D5 1/2 Ns] 250 ml Med 03/22/17 07:45 Active Norepinephrine [Levophed] 8 mg IV As Directed Dextrose 5%-Water Inj [D5w] 250 ml Med 03/22/17 07:45 Active Epinephrine 8 mg IV As Directed Dopamine 800 mg/D5w Med 03/22/17 07:37 Discontinued 800 mg in 500 ml .ROUTE As Directed Dopamine 800 mg/D5w Med 03/22/17 08:00 Active 800 mg in 500 ml IV As Directed Heparin Med 03/22/17 09:30 Discontinued 1,000 unit IV BOLUS PRN Heparin Med 03/22/17 09:31 Discontinued 10,000 unit .ROUTE .STK-MED ONE Heparin 1000 Units/ml [Tight: 0.2 ml/Hr] Med 03/22/17 09:30 Discontinued 1 each MISC DIRECTED PRN Piperacil/Tazobact 3.375 gm/Ns [Zosyn 3.375 gm/Ns] Med 03/22/17 07:42 Discontinued 3.375 gm in 50 ml IV NOW EKG [EKG] Stat Ther 03/22/17 06:40 Draft Result Diagrams: 03/22/17 06:38 03/22/17 06:38 Departure - Departure Date of Disposition Decision: 03/22/17 Time of Disposition Decision: 09:55 DIAGNOSIS: Hypotension, ESRD (end stage renal disease) on dialysis, Altered mental status , unspecified Disposition: ADMITTED INPATIENT 09 Certified Medical Emergency: Emergent Condition: Critical Referrals and Follow-Ups: Bryn Bazan MD [Primary Care Provider] - - Critical Care Note This patient required my direct & personal management of CC.: Yes Total Time (mins): 60 Critical Care Statement: This patient required my direct personal management to treat or rule out processes, the absence of which, could potentiallly result in sudden, clinically significant life or limb threatening deterioration.
[2017-03-22 07:06] LABS: BLOOD TYPE ARTERIAL; PCO2(98.6) 48 mmHg (35-45); SAMPLE BLOOD; pH(98.6) 7.31 (7.35-7.45)
[2017-03-22 07:07] LABS: PO2(98.6) 69 mmHg (60-100); THB 9.9 g/dL (11.5-17.4)
[2017-03-22 07:08] LABS: ALLEN TEST YES; DRAW SITE R RADIAL; MODALITY CANNULA
--- NOTE | 2017-03-22 07:30 | EKG Report ---
Test Performed on : 03/22/2017 06:39:32 AM Test Reason : AMS Blood Pressure : / mmHG Vent. Rate : 057 BPM Atrial Rate : 057 BPM P-R Int : 180 ms QRS Dur : 072 ms QT Int : 422 ms P-R-T Axes : 040 022 021 degrees QTc Int : 410 ms Sinus bradycardia. Nonspecific ST abnormality Abnormal ECG When compared with ECG of 31-DEC-2016 17:50, Minimal criteria for Inferior infarct are no longer present T wave inversion less evident in Inferior leads Nonspecific T wave abnormality no longer evident in Lateral leads QT has shortened Unconfirmed Result
[2017-03-22] MEDS ORDERED: DOPAMINE 400 MG/D5W 400 MG/500 ML IV.SOLN IV SCH (07:32)
[2017-03-22] MEDS ORDERED: DOPAMINE 800 MG/D5W 800 MG/500 ML IV.SOLN ONE (07:37)
[2017-03-22] MEDS ORDERED: NS 1,000 ML IV ONE (07:42)
[2017-03-22] MEDS ORDERED: NS 500 ML IV ONE (07:42)
[2017-03-22] MEDS ORDERED: ZOSYN 3.375 GM/NS 3.375 GM/50 ML IVPB IV ONE (07:42)
[2017-03-22] MEDS ORDERED: EPINEPHRINE 8 MG in D5W 250 ML IV SCH (07:45)
[2017-03-22] MEDS ORDERED: PITRESSIN 40 UNIT in NS 100 ML IV SCH (07:45)
[2017-03-22] MEDS ORDERED: DOPAMINE 800 MG/D5W 800 MG/500 ML IV.SOLN IV SCH (08:00)
[2017-03-22 09:01] LABS: INR 1.05; PROTIME 11.1 Seconds (9.2-11.7); PTT 38.7 Seconds (22.0-36.0)
[2017-03-22 09:07] LABS: BASO% 0.5 % (0.0-0.8); EOS# 0.18 X1000 (0.0-0.7); EOS% 1.3 % (0.0-10.0); HEMATOCRIT 32.6 % (37.0-47.0); HEMOGLOBIN 9.6 g/dL (12.0-16.0); IMM GRAN# 0.05 X1000 (0.0-0.04); IMM GRAN% 0.4 % (0.0-0.5); LYMPH# 1.98 X1000 (1.2-3.4); LYMPH% 14.4 % (20.5-51.1); MANUAL DIFF NEEDED? YES; MCH 31.6 PG (27-31); MCHC 29.4 g/dL (33-37); MCV 107.2 FL (81-99); MONO# 1.02 X1000 (0.11-0.59); MONO% 7.4 % (1.7-9.3); MPV 10.4 FL (7.4-10.4); PLT 457 X1000 (130-400); RBC 3.04 XMIL (4.2-5.4)
[2017-03-22 09:11] LABS: ALBUMIN 3.3 g/dL (3.5-5.0); CALCIUM 8.7 mg/dL (8.8-10.2); POTASSIUM 5.8 mmol/L (3.5-5.1); TOTAL BILIRUBIN 0.11 mg/dL (0.20-1.00); TOTAL PROTEIN 6.3 g/dL (6.3-8.3)
[2017-03-22] MEDS ORDERED: HEPARIN IV PRN (09:30)
[2017-03-22] MEDS ORDERED: NS 2,000 ML MISC PRN (09:30)
[2017-03-22] MEDS ORDERED: TIGHT: 0.2 ML/HR MISC PRN (09:30)
[2017-03-22] MEDS ORDERED: HEPARIN ONE (09:31)
--- NOTE | 2017-03-22 09:47 | ED EKG INTERP ---
This chart was entered by Kang Abraham Scribe, acting as scribe for Clayton Fairchild MD. EKG Interpretation - EKG Time of EKG reading by physician:: 06:30 EKG Read and Signed by:: Clayton Fairchild EKG Interpretation (*Must complete 3 of following elements*): Abnormal Rate: 57 Rhythm: sinus bradycardia [place]: normal QRS: normal [place] Interval: normal ST Wave: non-specific ST changes This chart was documented by the indicated scribe, (Kang Abraham Scribe) and accurately reflects the services I performed and decisions made by Gurinder phan Christophe I, MD, as attested by the provider's signature.
[2017-03-22 10:00] LABS: BANDS 2 % (0-1); EOS 2 % (1-10); LYMPHS 14 % (21-51); MONO 12 % (1-9)
[2017-03-22 10:01] LABS: HYPOCHROM 1+
--- NOTE | 2017-03-22 10:47 | Diag Imaging Result Doc PS360 ---
EXAM: CHEST-PORTABLE HISTORY: sepsis TECHNIQUE: COMPARISON: 01/11/2017 FINDINGS: Poor inspiratory effort. The heart is mildly prominent and there are central vascular prominence. The right hemidiaphragm is elevated and there is atelectasis or even a tiny infiltrate in the right base. No pleural effusions identified. IMPRESSION: 1.Mild cardiomegaly with vascular distention 2.Questionable right basilar infiltrate versus atelectasis Electronically signed by Reynaldo Johns 03/22/2017 10:44 AM
[2017-03-22] MEDS ORDERED: VANCOMYCIN IV PER PHARMACY MISC SCH (11:30)
[2017-03-22] MEDS ORDERED: VANCOMYCIN 1 GM/NS 1 GM/250 ML IVPB IV ONE ×2 (12:30→15:00)
[2017-03-22] MEDS ORDERED: NS 1,000 ML ONE (12:37)
[2017-03-22] MEDS ORDERED: DUONEB (A & A) INH PRN (13:04)
[2017-03-22] MEDS ORDERED: NUT TX IMPAIRED RENAL FXN SOY PO SCH (13:04)
--- NOTE | 2017-03-22 13:09 | HISTORY AND PHYSICAL ---
CHIEF COMPLAINT: Hypertension and altered mental status. HISTORY OF PRESENT ILLNESS: Ms. Marino is a 71-year-old female known to our service with a history of ESRD, COPD, and most recent admission for ischemic colitis status post extended right hemicolectomy with end ileostomy on 12/31/2016. She currently resides at [facility] and was sent here today for altered mental status and hypotension. The patient's blood pressure in the ER has been running in the 70s. The patient herself is unable to really give an accurate history at this time secondary to the fact that she is slightly confused. Her main reports are of a cough, but that is about it. She denies any chest pain, nausea or vomiting, no diarrhea. No extremity pain. No loss of consciousness. Labs in the ER showed she had some leukocytosis, anemia and mild hyperkalemia and hyponatremia. The chest x-ray shows questionable right lower lobe infiltrate and, given the fact that she is leukocytotic with possible right lower lobe infection, we are going to put her on broad-spectrum antibiotics and treat her for sepsis. She is hypotensive requiring vasopressors, and we are going to admit her to the ICU for further treatment and evaluation. PAST MEDICAL HISTORY: 1. Recent admission for ischemic colitis status post right hemicolectomy with end ileostomy. 2. COPD. 3. ESRD on hemodialysis. 4. Anemia of chronic disease. 5. Dementia. 6. History of breast and colon cancer. 7. Anxiety. 8. GERD. 9. Gout. 10. History of CVA. SURGICAL HISTORY: Right hemicolectomy with end ileostomy, hysterectomy, cholecystectomy, left breast biopsy, left upper extremity fistula, left mastectomy and right ankle surgery. FAMILY HISTORY: Noncontributory. REVIEW OF SYSTEMS: A 14 point review of systems obtained and found to be negative with the exception of the HPI. SOCIAL HISTORY: No history of tobacco, alcohol or drug use. She currently resides at [facility]. ALLERGIES: No known drug allergies. HOME MEDICATIONS: 1. Acetaminophen. 2. Diphenhydramine 1 p.o. at bedtime. 3. Xanax 0.5 mg p.o. t.i.d. 4. Aspirin 81 mg daily. 5. Citalopram 20 mg daily. 6. Plavix 75 mg daily. 7. Colace 100 mg daily. 8. Estrace vaginal cream 4.25 g tube daily. 9. Folic acid 1 mg daily. 10. Mcclusky 7.5, one p.o. q. 8 hours. 11. Lactobacillus 1 daily. 12. Metoprolol tartrate 12.5 mg b.i.d. 13. Midodrine 10 mg p.o. t.i.d. 14. Zofran 4 mg q. 6 hours. 15. Percocet 1 every 6 hours as needed. 16. Pravastatin 40 mg p.o. at bedtime. 17. Trazodone 150 mg p.o. at bedtime. PHYSICAL EXAMINATION: VITAL SIGNS: Blood pressure 79/32, heart rate 57, respiratory rate 16, O2 saturation 93% on room air. Temperature is 99.1 degrees. GENERAL: A 71-year-old female lying in hospital bed in no acute distress. NEUROLOGIC: The patient is awake, slightly lethargic and slightly disoriented, but follows commands without focal deficits. She is unable to tell us the name of the hospital, but is able to tell us the date. There are no focal deficits. HEENT: Head is atraumatic and normocephalic. Her pupils are equal, round, and reactive to light. Oral mucosa is moist. NECK: Trachea is midline. CHEST: Some crackles over the right lung base and diminished throughout. CV: Regular rate and rhythm. S1, S2 is noted. GI: Soft, nondistended, nontender. Bowel sounds active. EXTREMITIES: 1+ edema bilaterally. Pulses diminished, but palpable. DIAGNOSTIC DATA: Chest x-ray: Questionable right lower lobe infiltrate. WBC 13.77, hemoglobin 9.6, hematocrit 32.6. MCV 107.2, platelet count 457. INR 1.05. ABG on 2 L reveals pH 7.31, CO2 48, O2 69, bicarbonate 24.6. Sodium 131, potassium 5.8, chloride 87, CO2 23, anion gap 21, BUN 45, creatinine 8.8, glucose is 109, calcium 8.7, total bilirubin 0.11, AST 16, ALT 6, alkaline phosphatase 129. Troponin negative. Albumin 3.3, lactate 1.2. ASSESSMENT AND PLAN: 1. Presumed sepsis: Blood cultures have been obtained. Chest x-ray shows questionable right lower lobe infiltrate. The patient is hypotensive, so we will make sure she gets intravenous fluids, antibiotics and pressors if needed. Will follow cultures. 2. Healthcare associated pneumonia: Will treat with vancomycin and Zosyn renally dosed. Give her breathing treatments and monitor closely. 3. Hyperkalemia: Potassium 5.8. She is currently in dialysis now. 4. Macrocytic anemia: We will check iron studies, thyroid function in the morning. 5. Chronic obstructive pulmonary disease: Continue oxygen and nebulizers. 6. Encephalopathy: We are going to hold all of her pain medication and benzodiazepines for now and she is also hypotensive. She does not have any focal deficits, but we will monitor her neurologic status closely. 7. End-stage renal disease on hemodialysis: Dr. Hollingsworth has been consulted. She is currently in dialysis. Will defer management to him. 8. Deep vein thrombosis prophylaxis with heparin given her renal failure: Further recommendations to follow. Dictated by SYEDA Jain for Isrrael Blackmon MD cc: SYEDA Jain MD I have seen and examined patient. I agree with the above evaluation and plan. Hypotension. etiology unclear. possible sepsis vs medication induced. MTDD
[2017-03-22] MEDS: PROAMATINE PO SCH ×2 (14:02→16:12)
[2017-03-22] MEDS: ZOSYN 2.25 GM/NS 2.25 GM/50 ML IVPB IV SCH ×2 (14:02→19:50)
--- NOTE | 2017-03-22 14:06 | PROGRESS NOTE ---
DATE: 03/22/2017 DIALYSIS NOTE: She had her routine hemodialysis today. Because of hypotension, we have had to give back some fluid and she actually came off about half a liter positive. Otherwise, she tolerated her procedure well. She had no symptoms, no nausea, cramping, etc. cc: Jose David Hollingsworth MD
--- NOTE | 2017-03-22 14:22 | CONSULTATION ---
DATE OF CONSULTATION: 03/22/2017 REASON FOR CONSULTATION: Assistance with management in an end-stage renal disease patient. HISTORY OF PRESENT ILLNESS: Ms. Marino is a 71-year-old, white female with multiple medical problems. She has end-stage kidney disease, COPD, obesity, mild dementia, reflux, history of CVA. She has had recent ischemic colitis requiring hemicolectomy and ileostomy in December. Since then, she has had multiple episodes where she has had marked hypotension and altered mental status. Last week I was at the dialysis unit on her arrival, and she was markedly hypotensive with blood pressure measuring 70/30. However, she was awake and alert and able to interact appropriately. Her blood pressure slowly improved without intervention and she was able to receive her dialysis treatment. She has been complaining of a tremor especially in the right arm. This tremor is present with intention or without and it has caused her to drop things. She has no chest pain or palpitation or shortness of breath associated with these episodes. She does take narcotics prior to going to dialysis. She states that she has done this for an extended period of time. PAST MEDICAL HISTORY: As above. HOME MEDICATIONS: 1. Diphenhydramine. 2. Xanax. 3. Aspirin. 4. Citalopram. 5. Plavix. 6. Colace. 7. Estrogen. 8. Folate 9. Pedro. 10. Metoprolol. 11. Midodrine. 12. Zofran. 13. Percocet. 14. Pravastatin. 15. Trazodone. ALLERGIES: None. SOCIAL HISTORY: She resides at [facility] nursing [facility]. Dr. Marino is her son. FAMILY HISTORY: Noncontributory. PHYSICAL EXAMINATION: Vital Signs: Blood pressure 79/32, heart rate 57, respirations 16, afebrile. General: She is an elderly woman, chronically ill, alert, appropriate. She does not remember coming to the hospital this morning. Skin is warm and dry. HEENT: Conjunctivae pink. Pupils are equal. Oropharynx is clear. Tongue is moist. Neck: Supple. Neck veins are not visible. Trachea is midline. Heart: Regular with systolic murmur. No rubs. Lungs: Have equal breath sounds. No crackles or wheezes. Abdomen: Mildly tender but soft. Bowel sounds are present. Ostomy is in the right lower quadrant. Extremities: Have 1+ edema. No clubbing or cyanosis. Neurologic Exam: She does have a coarse tremor of the right upper extremity. No other lateralizing symptoms. LABORATORY DATA: Hemoglobin 9.6. pH 7.31, pCO2 of 48, PO2 of 69 on 2 L. Sodium 131, potassium 5.8, chloride 87, bicarbonate 23, BUN 45, creatinine 8.8. IMPRESSION: 1. End-stage kidney disease. She will have her routine hemodialysis today. In fact, she is in treatment now. 2. Despite her hypotension, she has been able to achieve ultrafiltration. 3. Electrolytes: Moderate hyperkalemia is present. This will be managed with dialysis. 4. Acid-base in target. 5. Anemia below target. We will dose with erythropoietin. 6. Hypotension. This has been a chronic problem and she receives Midrin. We have not been able to ascertain a specific diagnosis with regard to her hypotension. She did undergo a left heart catheterization about a year ago and required angioplasty. That did not particularly affect her blood pressure problem. She did have an echocardiogram performed in December of this year at which time her LVEF was 55%-60% with mild mitral regurgitation and no pericardial effusion. Cortisol was measured in January of last year at which time it was 14.6. TSH was normal and free T4 was also normal RECOMMENDATIONS: My recommendation would be to try and go without narcotics as much as possible as well as benzodiazepines. This may help her tremor as well as or hypotension. Continue the Midodrine. Formal stimulation test is probably in order. cc: Jose David Hollingsworth MD
[2017-03-22] MEDS: DUONEB (A & A) INH SCH ×4 (15:08→22:58)
[2017-03-22] MEDS ORDERED: VANCOMYCIN 1 GM/NS 1 GM/250 ML IVPB IV SCH (16:00)
[2017-03-22] MEDS: TYLENOL PO PRN (21:29)
[2017-03-22] MEDS: HEPARIN SUBQ SCH (21:29)
[2017-03-22] MEDS: LEVOPHED 8 MG in D5 1/2 NS 250 ML IV SCH (22:04)
[2017-03-23] MEDS: ZOSYN 2.25 GM/NS 2.25 GM/50 ML IVPB IV SCH ×4 (02:35→19:49)
[2017-03-23] MEDS: DUONEB (A & A) INH SCH ×6 (03:18→22:45)
[2017-03-23] MEDS ORDERED: CORTROSYN IV ONE (06:00)
[2017-03-23 06:43] LABS: ALBUMIN 3.2 g/dL (3.5-5.0); CALCIUM 9.2 mg/dL (8.8-10.2); HEMATOCRIT 34.4 % (37.0-47.0); HEMOGLOBIN 10.1 g/dL (12.0-16.0); MCH 31.8 PG (27-31); MCHC 29.4 g/dL (33-37); MCV 108.2 FL (81-99); MPV 9.6 FL (7.4-10.4); POTASSIUM 5.1 mmol/L (3.5-5.1); RBC 3.18 XMIL (4.2-5.4)
[2017-03-23] MEDS: ZOFRAN IV PRN (06:47)
[2017-03-23] MEDS ORDERED: NS 2,000 ML ONE (07:06)
[2017-03-23] MEDS ORDERED: HEPARIN ONE (07:06)
[2017-03-23] MEDS: CELEXA PO SCH (08:05)
[2017-03-23] MEDS: PLAVIX PO SCH (08:05)
[2017-03-23] MEDS: PROAMATINE PO SCH ×3 (08:05→16:15)
[2017-03-23] MEDS: HEPARIN SUBQ SCH ×3 (08:05→22:59)
[2017-03-23] MEDS: FOLIC ACID PO SCH (08:06)
[2017-03-23] MEDS: ASPIRIN PO SCH (08:06)
[2017-03-23] MEDS: TYLENOL PO PRN (08:06)
[2017-03-23] MEDS: COLACE PO SCH (08:08)
[2017-03-23] MEDS: CULTURELLE PO SCH (08:08)
--- NOTE | 2017-03-23 10:16 | Diag Imaging Result Doc PS360 ---
EXAM: CT THORAX W/O CONTRAST HISTORY: pneumonia TECHNIQUE: CT chest without contrast. Dose reduction protocol. COMPARISON: 12/24/2015 FINDINGS: The heart is enlarged. Prominent coronary artery calcifications in the left anterior descending artery. No thoracic aortic aneurysm. Prominent vascular distention. There is trace pleural fluid. There is basilar atelectasispoor and increased markings in the right lower lobe. Poor Inspiratory effort. The right hemidiaphragm is elevated. There is at least mild scoliosis. There are calcified left hilar nodes with scattered calcified granuloma. IMPRESSION: 1.Cardiomegaly with pulmonary edema. Prominent coronary artery calcifications. 2.Basilar atelectasis with questionable tiny infiltrate in the right lower lobe. Electronically signed by Reynaldo Johns 03/23/2017 10:14 AM
[2017-03-23] MEDS: SOLU-CORTEF IV SCH ×3 (12:07→22:59)
[2017-03-23] MEDS: XANAX PO SCH ×2 (12:07→16:15)
--- NOTE | 2017-03-23 12:17 | PROGRESS NOTE ---
DATE: 03/23/2017 SUBJECTIVE: Today, Ms. Marino refers to be doing a lot better. Denies any shortness of breath. Of note, Ms. Marino was brought in yesterday, who [facility] a [facility], because of altered mental status and hypotension. She had her regular dialysis yesterday, but they were only able to do hemodialysis. They were not able to do any ultrafiltration because of hypotension. OBJECTIVE: Vital signs: Blood pressure is now 107/58, pulse of 81, respirations 22, and temperature is 100.0 degrees. General: Ms. Marino is a 71-year-old female. She is in bed, not seemingly distressed. HEENT: Mucosa is pink and moist. Anicteric. Acyanotic. Neck: Supple. Chest: Air entry is bilaterally reduced. There are a few bilateral crepitations, more so on the right posterior lung field. Cardiovascular: Regular rate and rhythm. Abdomen: Soft. Extremities: No pedal edema. Central Nervous System: Patient is awake and alert. There is no focal neurological deficit, but patient has irregular tremors and muscle jerks intermittently of the upper extremity bilaterally. LABORATORY DATA: WBC is up to 15.55. Hemoglobin is 10.1. Platelet count is 434,000. Chemistry is reviewed and is consistent with chronic end-stage renal. Patient's cortisol level was 15.0; however, the stimulation test was 22.7, which is still slightly low for the degree of hypotension that the patient goes through. A CT scan of the chest which was done today shows cardiomegaly with pulmonary edema. There is bibasilar atelectasis and questionable tiny infiltrates in the right lower lobe. ASSESSMENT AND PLAN: 1. Sepsis. 2. Right lower lobe pneumonia. 3. Hypotension, likely secondary to sepsis versus medication. 4. Altered mental status on presentation due to toxic metabolic encephalopathy from medications. 5. Muscle jerks and tremors, likely from withdrawal of medications. 6. End-stage renal disease, on hemodialysis. 7. Chronic obstructive pulmonary disease. In general, I think Ms. Marino is doing relatively fine. She was started on pressor last night because of very low blood pressure. Cortisol level is at normal low level, which I think is inadequate response for the level of stress (hypotension) that the patient is going through. I will put her on steroids for transient adrenal insufficiency. We will also continue with the current antibiotics. We will observe Ms. Marino here in the ICU for another 24 hours and hopefully transfer her out tomorrow if she remains stable. cc: Isrrael Blackmon MD
--- NOTE | 2017-03-23 13:18 | PROGRESS NOTE ---
DATE: 03/23/2017 TIME SEEN: 0730. SUBJECTIVE: Ms. Marino is resting quietly in bed. She is very, very lethargic. She does open her eyes to verbal stimuli. She remains nonverbal. OBJECTIVE: Vital Signs: Her most recent vital signs are temperature 98.9 degrees, blood pressure 105/57, heart rate 61, and respirations are 20. She is on 3L. She is currently receiving a breathing treatment. Saturation is 100%. She has had 1008 in. She has had 450 out, and was left positive after dialysis yesterday secondary to hypotension. General: This is a 71-year-old white female. She is currently resting in bed. She appears in no acute distress. Skin: Warm and dry. HEENT: Normocephalic and atraumatic. Conjunctivae pale. She has NINI, though sluggish. Mucous membranes are moist. Neck: Supple. Trachea midline. Trace JVD. Cardiovascular: Regular rate and rhythm. She has a soft systolic murmur. No gallop. Lungs: Clear to auscultation anteriorly. Equal excursion. Abdomen: Round, soft, nontender. Positive bowel sounds with ostomy to the right lower quadrant, brown stool. Genitourinary: Not inspected. Minimal void with dialysis assist. Extremities: Edema 1+. No clubbing or cyanosis. Neurologic: As mentioned above. LABORATORY: Sodium 134, potassium 5.1, chloride 93, CO2 of 26. BUN 29, creatinine 6.6. Glucose 136, anion gap 15. Calcium 9.2, phosphorus 5.5, albumin 3.2. White count 15.55 , hemoglobin 10.1, hematocrit 34.4, with a platelet count of 434,000. Patient had a plasma lactate of 1.2. Her prothrombin time is 11.1, INR 1.05, PTT 38.7. She had an iron of 42, saturation of 24%. Ferritin is still pending. ASSESSMENT AND PLAN: 1. End-stage renal disease. Patient had her routine dialysis treatment yesterday. She does not appear to be in fluid volume overload. There are no indications for intervention today. 2. Electrolytes. These remain stable. 3. Acid-base balance. This is at target. 4. Anemia. This remains low, but stable. 5. Hypotension. This has been a chronic problem. Patient has been started on midodrine to assist with her hypotension. As mentioned previously, this may be related to her pain control and her medications. She is on solucortef and norepi. rg I would like to thank you for allowing us to follow with this patient. Seen, data reviewed, discussed with Abad Hernandez on 03/23/17. I agree with the above assessment and plan of care. rg Dictated by SYEDA Duncan for Jose David Hollingsworth MD cc: SYEDA Duncan MD [facility]
[2017-03-23] MEDS ORDERED: PROAMATINE PO SCH (16:24)
[2017-03-23] MEDS: DESYREL PO SCH ×2 (19:50→22:58)
[2017-03-23] MEDS: ESTRACE VAGINAL CREAM VAG SCH (22:58)
[2017-03-24] MEDS: ZOSYN 2.25 GM/NS 2.25 GM/50 ML IVPB IV SCH ×4 (02:22→21:00)
[2017-03-24] MEDS: TYLENOL PO PRN (03:07)
[2017-03-24] MEDS: DUONEB (A & A) INH SCH ×4 (03:14→15:10)
[2017-03-24] MEDS: ZOFRAN IV PRN ×3 (04:07→14:38)
[2017-03-24] MEDS: SOLU-CORTEF IV SCH ×3 (05:03→21:33)
[2017-03-24] MEDS: LEVOPHED 8 MG in D5 1/2 NS 250 ML IV SCH (05:05)
[2017-03-24 05:39] LABS: HEMATOCRIT 27.3 % (37.0-47.0); HEMOGLOBIN 7.9 g/dL (12.0-16.0); MCHC 28.9 g/dL (33-37); MCV 110.5 FL (81-99); MPV 9.9 FL (7.4-10.4); RBC 2.47 XMIL (4.2-5.4)
[2017-03-24 05:49] LABS: ALBUMIN 2.6 g/dL (3.5-5.0); CALCIUM 8.4 mg/dL (8.8-10.2); POTASSIUM 5.1 mmol/L (3.5-5.1)
[2017-03-24] MEDS ORDERED: DOPAMINE 800 MG/D5W 800 MG/500 ML IV.SOLN IV SCH (06:02)
[2017-03-24] MEDS ORDERED: DOPAMINE 800 MG/D5W 800 MG/500 ML IV.SOLN ONE (06:12)
[2017-03-24] MEDS ORDERED: HEPARIN IV PRN (06:58)
[2017-03-24] MEDS ORDERED: NS 2,000 ML MISC PRN (06:58)
[2017-03-24] MEDS ORDERED: TIGHT: 0.2 ML/HR MISC PRN (06:58)
[2017-03-24] MEDS ORDERED: NS 2,000 ML ONE (07:43)
[2017-03-24] MEDS ORDERED: HEPARIN ONE (07:43)
--- NOTE | 2017-03-24 08:03 | PROGRESS NOTE ---
DATE: 03/24/2017 SUBJECTIVE: She complains of being weak. Still having tremors. She is on dopamine currently. Her blood pressure was in the 70s, and so the dopamine was added and titrated up to 6 mcg/kg per minute. OBJECTIVE: Vital Signs: Blood pressure was 120/55, heart rate 61, respirations 16 and afebrile. Intake 2 L, output 600 mL. General: No acute distress. Skin: Warm and dry. HEENT: Conjunctivae are pink. Oropharynx is moist. Neck: Neck veins are not appreciated. Heart: Regular without gallops. Murmurs present. Lungs: Have equal breath sounds. No crackles or wheezes. Abdomen: Obese and soft. Bowel sounds are present. Extremities: Have trace edema. No clubbing or cyanosis. Neurologic: She still has a coarse tremor that is present with at rest or with intention. She is awake and alert, oriented appropriate. IMPRESSION: 1. End-stage kidney disease. She is due for her routine hemodialysis today. We will use her normal prescription. 2. Electrolytes are acceptable. 3. Acid-base acceptable. 4. Anemia: Hemoglobin 7.9 today, where it was 10.1 yesterday. She has not had any obvious blood loss and certainly does not have symptoms of blood loss. Will repeat this before we consider transfusion and further investigation. Will dose with erythropoietin. 5. Tremor. Will ask neurology to evaluate her and offer their recommendations. cc: Jose David Hollingsworth MD
[2017-03-24] MEDS: ASPIRIN PO SCH (08:35)
[2017-03-24] MEDS: ESTRACE VAGINAL CREAM VAG SCH (08:35)
[2017-03-24] MEDS: PLAVIX PO SCH (08:35)
[2017-03-24] MEDS: CULTURELLE PO SCH (08:35)
[2017-03-24] MEDS: PROAMATINE PO SCH ×3 (08:35→17:36)
[2017-03-24] MEDS: FOLIC ACID PO SCH (08:36)
[2017-03-24] MEDS: CELEXA PO SCH (08:36)
[2017-03-24] MEDS: HEPARIN SUBQ SCH ×2 (08:36→21:33)
[2017-03-24] MEDS: COLACE PO SCH (08:36)
[2017-03-24] MEDS: XANAX PO SCH ×3 (08:36→17:35)
[2017-03-24] MEDS: EPOGEN SUBQ SCH (08:45)
--- NOTE | 2017-03-24 09:39 | EKG Report ---
Test Performed on : 03/24/2017 05:35:33 AM Test Reason : Bradycardia Blood Pressure : / mmHG Vent. Rate : 055 BPM Atrial Rate : 055 BPM P-R Int : 182 ms QRS Dur : 080 ms QT Int : 452 ms P-R-T Axes : 044 035 028 degrees QTc Int : 432 ms Sinus bradycardia. Otherwise normal ECG When compared with ECG of 22-MAR-2017 06:39, No significant change was found Confirmed by Apurva Polo MD ([id number]) on 03/28/2017 6:01:36 AM
[2017-03-24 10:19] LABS: HEMATOCRIT 32.4 % (37.0-47.0); HEMOGLOBIN 9.6 g/dL (12.0-16.0)
--- NOTE | 2017-03-24 10:35 | CONSULTATION ---
DATE OF CONSULTATION: 03/24/2017 INDICATION: Hypotension. Relative bradycardia. HISTORY OF PRESENT ILLNESS: Ms. Marino is a 71-year-old white female with a history of end- stage renal disease, COPD, coronary artery disease with previous PCI, as well as chronic hypotension. She was admitted on 03/22/2017 with complaints of altered mental status. She is not able to provide much history regarding these events but says she knows that she was confused. She thinks she has had some relative decrease in her oral intake secondary to just not being hungry, as well as she reports the food has not been up to par. She resides at [facility] and reports that she does minimal to no ambulation. She apparently was not complaining of any chest pain on presentation and has not currently but has had some issues with nausea as well as an episode of emesis this morning. She believes she was told she had a fever here but she has not been aware of any fevers prior to that. She has an ostomy in place. She currently is being treated with antibiotics for presumed right lower lobe pneumonia and has had episodic treatment with pressors. She is currently on hemodialysis. PAST MEDICAL HISTORY: 1. Significant for a history of ischemic colitis, status post right hemicolectomy with an end ileostomy. 2. COPD. 3. End-stage renal disease on hemodialysis followed by Dr. Hollingsworth. 4. Anemia of chronic disease related to the dialysis. 5. History of breast and colon cancer. 6. Reflux disease. 7. Gout. 8. Reported history of CVA. 9. Coronary artery disease with previous PCI to the left anterior descending in 2016. SOCIAL HISTORY: No tobacco, alcohol, or illicit drug use. She currently resides at [facility]. REVIEW OF SYSTEMS: A 10 system review of systems was negative except for those things mentioned in HPI. PHYSICAL EXAMINATION: Vital Signs: She has been afebrile with a T-max of a 100.0 degrees at 8:00 a.m. yesterday. Heart rates have been in the mid 50s up to the 80s during this hospitalization. Her systolic blood pressures have ranged from the 70s up into the 110s. This does not seem to be all that different from blood pressures over previous visits. Her I's and O's for this hospitalization have been positive 1.9 L. General: She is in no acute distress. She is very pleasant and talkative with a pleasant demeanor. HEENT: Oropharynx is moist. Poor dentition. Eye examination: [place]d conjunctivae. White sclerae. Neck: Examination shows no obvious thyromegaly or thyroid tenderness. Cardiovascular: She sounds to be in a regular rate and rhythm. I do not hear any obvious murmurs. She has somewhat distant heart sounds. 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 Chest: Exam had some relatively clear breath sounds with the exception of some mild rales particularly in the right base, although it is a very difficult examination secondary to poor inspiratory effort. She has no increased work of breathing. Abdomen: Soft, nontender. Bowel sounds are present. Ostomy is in place and seems to be producing well with a pink stoma. Skin: Warm and dry throughout. No obvious rashes. Neurological: She is moving all extremities well. She has no real lateralizing deficits. She does have a tremor noted that seems to be slightly worse on the right than the left. Psychiatric: She is alert, oriented, pleasant. She seems to have normal mood and affect. PERTINENT DATA: She had a cardiac catheterization performed in 01/2016 that resulted in transfer over to [facility] and supposed PCI to the mid LAD. I do not have results of that intervention. She had an echocardiogram in 12/2016 showing an EF of 55%-60%. Possible mild aortic stenosis with a mean gradient of 17 but, otherwise, no significant valvular abnormalities. Mild MR, mild TR noted. She had a chest CT performed this hospitalization which showed coronary artery calcification and atelectasis with possible tiny infiltrate in the right lower lobe. Her most recent electrocardiogram demonstrated sinus rhythm, rate of 55 beats per minute. No evidence of significant ischemia or infarct. Original EKG on 03/22/2017 was similar to that. Laboratory data shows a white count of 12.2. Hematocrit 27. Platelet count 396,000. Sodium 136, potassium 5.1. BUN 47, creatinine 7.5, albumin 2.6. She had what appears to be a cortisol stim test. ASSESSMENT: 1. Hypotension. 2. Relative bradycardia. 3. Coronary artery disease with end-stage renal disease. PLAN: We will check a limited echo to evaluate the ejection fraction as well as for possibility of a pericardial effusion. She does not seem to be far off her baseline relative hypotension and is treated with Midodrine as an outpatient. Certainly, if she is septic from a right lower lobe pneumonia, that could be contributing as well. In addition, her cortisol stim test did not seem to show a very robust response, and she may be relatively deficient in cortisol. She is being administered 50 mg IV q. 8 of hydrocortisone. Presently, I do not have any recommendations other than the limited echo that we have already ordered. We will follow up on those results. She has not had any significant bradycardia as her lowest heart rates appear to be in the mid 50s which should not be symptomatic and should not require any intervention. She is not on any rate lower medications presently but, apparently, was on metoprolol before which could feasibly be initiated in the future if she comes off the pressors. cc: Good Martinez MD
--- NOTE | 2017-03-24 13:25 | PROGRESS NOTE ---
DATE: 03/24/2017 SUBJECTIVE: Today Ms. Marino refers to be doing fine. I understand there was an instant last night where she was bradycardic and also hypotensive and had to be put on dopamine. OBJECTIVE: Vital signs: Blood pressure is 89/46, pulse of 64, respirations 16, temperature is 98.3 degrees. General exam: Ms. Marino a 71-year-old female. She is in bed actually having dialysis; at the time I saw her, she was not in any distress. HEENT: Mucosa is pink and moist. Anicteric. Acyanotic. Neck: Supple. Chest: Air entry was bilaterally reduced with some bibasilar crepitations. Cardiovascular: Regular rate and rhythm. Abdomen: Soft. Extremities: No pedal edema. PROGRAM COORDINATOR: Patient is awake and alert. There is no focal neurological deficit. The patient does have some irregular muscle jerks which intermittently are over the upper extremities, which seems to have improved significantly comparing to yesterday. LAB WORK: 1. WBC is 12.27, hemoglobin is 7.9,; a repeat is actually 9.6 so I think that was a lab error. Platelet count is 396. 2. Chemistry reviewed. Electrolytes are normal. Everything is consistent with end-stage renal disease. ASSESSMENT: 1. Sepsis on presentation. 2. Right lower lobe pneumonia. 3. Hypotension. Etiology is unclear. Patient seems to be chronically hypotensive. This could have probably be worsened a little bit now because of sepsis plus I think there might be element of medication, as well as transient adrenal insufficiency. 4. Altered mental status on presentation due to metabolic encephalopathy. 5. Muscle jerks and tremors likely from medications. This has significantly improved. However, we will consult neurology to evaluate the patient as well. 6. End-stage renal disease on hemodialysis. The patient is tolerating the therapy. 7. History of chronic obstructive pulmonary disease. PLAN: So far, the patient's blood cultures have been negative for 48 hours. The sputum Gram stain is also unremarkable. She seems to be chronically hypotensive. We are going to try and wean her off the dopamine. Will also gradually try and wean her off of the steroid if there is not any robust response. We are going to observe her a couple hours after her therapy in the ICU. If she continues to be clinically stable, we might be able to remove her from the ICU to regular floor. cc: Isrrael Blackmon MD
--- NOTE | 2017-03-24 15:59 | Diag Imaging Result Doc PS360 ---
EXAM: KUB ABDOMEN INDICATION: abd pain TECHNIQUE: 2 views COMPARISON: 12/31/2016 FINDINGS: There are unremarkable bowel gas and stool patterns. There is no obstructive bowel pattern. There is no evidence of large volume free abdominal gas. There is no evidence of organomegaly. IMPRESSION: No evidence of acute pathology by plain radiograph. Electronically signed by Junaid Holliday 03/24/2017 3:57 PM
--- NOTE | 2017-03-24 20:05 | ECHO REPORT ---
ORDER DATE: 03/24/2017 MEASUREMENTS: No measurements. SUMMARY: 1. Limited 2-dimensional echocardiography performed to rule out pericardial effusion. 2. Fibrocalcific changes of the aortic valve demonstrated with reduced aortic valve leaflet mobility. Doppler assessment of aortic valve not performed. Mitral and tricuspid valves are without structural abnormality while pulmonic valves all demonstrated. The aortic root is normal in size. 3. Normal left ventricular chamber size with mild concentric left hypertrophy is suggested. The left ventricle is dynamic with estimated left ejection fraction greater than 70%. No regional wall motion abnormalities are evident. Left atrium is mildly enlarged. Right atrial and right ventricle are normal in size. 4. No pericardial effusion. 5. Appearance of inferior vena cava suggests normal central venous pressure. cc: MD Good Grey MD
[2017-03-24] MEDS: DESYREL PO SCH (21:32)
[2017-03-25] MEDS: ZOSYN 2.25 GM/NS 2.25 GM/50 ML IVPB IV SCH ×2 (02:46→08:55)
[2017-03-25] MEDS: SOLU-CORTEF IV SCH ×4 (04:10→21:46)
[2017-03-25 07:56] LABS: CALCIUM 9.1 mg/dL (8.8-10.2); POTASSIUM 5.8 mmol/L (3.5-5.1)
[2017-03-25] MEDS ORDERED: STERILE WATER INJ. ONE (08:25)
[2017-03-25] MEDS: ZOFRAN IV PRN (08:31)
--- NOTE | 2017-03-25 08:40 | Diag Imaging Result Doc PS360 ---
EXAM: CHEST-PORTABLE INDICATION: dyspnea TECHNIQUE: One view COMPARISON: 03/22/2017 FINDINGS: There is stable elevation of the right hemidiaphragm. The mild atelectasis versus infiltrate at the right lung base seen on the previous study has essentially resolved. No new consolidations are appreciated. Cardiac silhouette is stable. IMPRESSION: Essential resolution of the mild atelectasis versus infiltrate at the right lung base. Electronically signed by Junaid Holliday 03/25/2017 8:38 AM
[2017-03-25] MEDS: PLAVIX PO SCH (08:55)
[2017-03-25] MEDS: CELEXA PO SCH (08:55)
[2017-03-25] MEDS: CULTURELLE PO SCH (08:55)
[2017-03-25] MEDS: PROAMATINE PO SCH ×3 (08:55→16:32)
[2017-03-25] MEDS: ASPIRIN PO SCH (08:55)
[2017-03-25] MEDS: XANAX PO SCH ×3 (08:55→16:33)
[2017-03-25] MEDS: FOLIC ACID PO SCH (08:55)
[2017-03-25] MEDS: HEPARIN SUBQ SCH ×2 (08:55→20:13)
[2017-03-25] MEDS: COLACE PO SCH (08:55)
[2017-03-25] MEDS: ESTRACE VAGINAL CREAM VAG SCH (08:56)
[2017-03-25 09:01] LABS: HEMOGLOBIN 10.1 g/dL (12.0-16.0); MCH 32.3 PG (27-31); MCHC 28.9 g/dL (33-37); MCV 111.8 FL (81-99); MPV 9.8 FL (7.4-10.4); RBC 3.13 XMIL (4.2-5.4)
--- NOTE | 2017-03-25 10:03 | PROGRESS NOTE ---
DATE: 03/25/2017 SUBJECTIVE: This morning, Ms. Marino referred to be doing a lot better. She has no complaints. OBJECTIVE: Vital Signs: Blood pressure is 128/72, pulse of 60, respirations is 12, temperature 98.4 degrees. General: Ms. Marino is a 71-year-old female. She is in bed, not in any remarkable distress. HEENT: Mucosa is pink and moist. Anicteric. Acyanotic. Neck supple. Chest: Good air entry bilateral, probably a few bibasilar crepitations. Cardiovascular: Regular rate and rhythm. No murmurs. No rubs. No gallops. Abdomen is soft. Extremities: No pedal edema. 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 No focal neurological deficit. The muscle jerks have substantially reduced. LABORATORY DATA: WBC is 14.84, hemoglobin is 10.1, platelet count of 492,000. Chemistries reviewed and consistent with chronic kidney disease. A chest x-ray this morning shows improved mild right basilar atelectasis. Otherwise, stable. ASSESSMENT: 1. Sepsis on presentation. 2. Right lower lobe pneumonia. Chest x-ray has shown remarkable improvement. 3. Altered mental status on presentation likely due to metabolic encephalopathy. 4. Hypotension, etiology not apparently clear. We think it is multifactorial including drug side effects, sepsis, and relative Adrenal insufficiency. Blood pressure seems to be a lot better; however, the patient also has episodes where she became bradycardic but, again, was sinus and was asymptomatic. So far, she does not seem to be on any medication that will cause bradycardia at this point. This morning, her pulse seems to be fine, and her blood pressure is stabilized. We will discontinue the pressors. Patient is completely asymptomatic. So, we will move her to a regular room on the floor. 5. Muscle jerks and tremors likely due to medications withdrawal. Some of her sedatives were restarted. These have substantially resolved. 6. Endstage renal disease, on hemodialysis. 7. Chronic obstructive pulmonary disease not in exacerbation. cc: MD SARAH Terrazas
--- NOTE | 2017-03-25 13:08 | PROGRESS NOTE ---
DATE: 03/25/2017 SUBJECTIVE: She has no new complaints today. She is off of vasopressor support. OBJECTIVE: Vital Signs: Blood pressure 116/32, heart rate 48, respirations 17, afebrile. General: She is in no acute distress. Skin: Warm and dry. Conjunctivae are pink. Pupils are equal. Neck: Neck veins are not appreciated. Heart: Regular and distant. Lungs: Have equal breath sounds. No crackles or wheezes. Abdomen: Obese and soft. Bowel sounds are present. Extremities: Have trace edema. No clubbing or cyanosis. LABORATORY DATA: Sodium 138, potassium 5.8, chloride 97, bicarbonate 22. BUN 45, creatinine 6.9, hemoglobin 10.1. IMPRESSION: 1. Hypotension. Improved. Continue care. 2. End-stage renal disease. Her next scheduled dialysis is Monday. 3. Electrolytes/acid base. Potassium is modestly elevated. Observe. 4. Bradycardia. Defer to cardiology. 5. Anemia. Improved following transfusion. She is receiving erythropoietin. cc: Jose David Hollingsworth MD
[2017-03-25] MEDS: DESYREL PO SCH (20:13)
[2017-03-25] MEDS: AUGMENTIN PO SCH (20:13)
[2017-03-26 06:53] LABS: POTASSIUM 6.3 mmol/L (3.5-5.1)
[2017-03-26] MEDS ORDERED: KAYEXALATE PO ONE (07:00)
[2017-03-26] MEDS: XANAX PO SCH ×3 (08:16→17:36)
[2017-03-26] MEDS: COLACE PO SCH (08:16)
[2017-03-26] MEDS: CELEXA PO SCH (08:16)
[2017-03-26] MEDS: FOLIC ACID PO SCH (08:17)
[2017-03-26] MEDS: PROAMATINE PO SCH ×3 (08:17→17:36)
[2017-03-26] MEDS: ASPIRIN PO SCH (08:17)
[2017-03-26] MEDS: CULTURELLE PO SCH (08:17)
[2017-03-26] MEDS: AUGMENTIN PO SCH ×2 (08:17→21:34)
[2017-03-26] MEDS: PLAVIX PO SCH (08:17)
[2017-03-26] MEDS: HEPARIN SUBQ SCH ×2 (08:17→21:34)
[2017-03-26] MEDS: SOLU-CORTEF IV SCH (08:18)
[2017-03-26] MEDS: ESTRACE VAGINAL CREAM VAG SCH (08:19)
[2017-03-26] MEDS ORDERED: VELTASSA PO ONE (13:58)
--- NOTE | 2017-03-26 14:57 | PROGRESS NOTE ---
DATE: 03/26/2017 SUBJECTIVE: Today Ms. Marino refers to be doing a lot better. Denies any complaints. OBJECTIVE: Vital signs: Blood pressure is 113/98, pulse of 56, respirations 18 , temperature 97.8 degrees. General: Ms. Marino is a 71-year-old female. She is in bed, not in any distress. HEENT: Mucosa is pink and moist. Anicteric. Acyanotic. Neck: Supple. Chest: Good air entry bilateral. I did not hear any crepitations or rhonchi. Cardiovascular: Regular rate and rhythm. No murmurs, no gallops. Abdomen: Soft. There is no hepatosplenomegaly. Extremities: No pedal edema. SLACK COOPER: Patient is awake, alert, no focal neurological deficit. LABORATORY DATA: There is no CBC for this morning. Chemistries reviewed. Sodium is 132, potassium is 6.3, chloride is 95, bicarb is 23. A repeat potassium is down to 5.8. ASSESSMENT: 1. Sepsis on presentation. 2. Right lower lobe pneumonia. X-ray has shown improvement. Patient is now on oral antibiotics. 3. Altered mental status on presentation secondary to metabolic encephalopathy. This has improved. 4. Hypotension, etiology not clear, but blood pressure is relatively stable. The patient is asymptomatic. She is currently on midodrine and titration dose of hydrocortisone for possible relative adrenal insufficiency. 5. Muscle jerks and tremors likely due to medication withdrawal. This has improved. 6. End-stage renal disease on hemodialysis. 7. Chronic obstructive pulmonary disease. Currently not in exacerbation. 8. Hyperkalemia. Likely due to the underlying kidney disease. Patient was given a dose of Kayexalate. A repeat potassium is better. We will give her another dose of Veltassa and repeat her potassium for tomorrow morning. Hopefully this will be aggressively managed during dialysis tomorrow. I think in general, Ms. Marino seems to be doing fine. I think she is doing a lot better. We will going to get her to sit up in chair and get physical therapy to start working with her. I think that the plan is hopefully we will be able to discharge her back to the rehab tomorrow or Monday. cc: MD SARAH Terrazas
[2017-03-26] MEDS: DESYREL PO SCH (21:34)
[2017-03-27] MEDS ORDERED: HEPARIN ONE (06:57)
[2017-03-27] MEDS ORDERED: NS 2,000 ML ONE (06:57)
[2017-03-27 07:23] LABS: CALCIUM 9.3 mg/dL (8.8-10.2); POTASSIUM 5.2 mmol/L (3.5-5.1)
[2017-03-27 07:36] LABS: BASO% 0.4 % (0.0-0.8); EOS# 0.23 X1000 (0.0-0.7); EOS% 1.4 % (0.0-10.0); HEMATOCRIT 32.6 % (37.0-47.0); HEMOGLOBIN 9.7 g/dL (12.0-16.0); LYMPH# 3.41 X1000 (1.2-3.4); LYMPH% 20.9 % (20.5-51.1); MANUAL DIFF NEEDED? YES; MCH 32.4 PG (27-31); MCHC 29.8 g/dL (33-37); MONO% 6.1 % (1.7-9.3); MPV 9.7 FL (7.4-10.4); NEUT% 71.2 % (42.2-75.2); PLT 479 X1000 (130-400); RBC 2.99 XMIL (4.2-5.4)
[2017-03-27] MEDS ORDERED: TIGHT: 0.2 ML/HR MISC PRN (07:39)
[2017-03-27] MEDS ORDERED: HEPARIN IV PRN (07:39)
[2017-03-27] MEDS ORDERED: NS 2,000 ML MISC PRN (07:39)
[2017-03-27] MEDS ORDERED: SOLU-CORTEF IV SCH (09:00)
--- NOTE | 2017-03-27 09:23 | PROGRESS NOTE ---
DATE: 03/27/2017 SUBJECTIVE: The patient is sitting up in bed. She has continued to have some mild hypotension. Her midodrine was increased to 10 mg t.i.d. No other complaints. OBJECTIVE: Vital Signs: Temperature 97.8 degrees, pulse 45 to 53, respiratory rate 18, blood pressure 84/47, she was 128/56 prior, intake 960 mL, output 1.5 L (this is from her colostomy). General: This is an elderly female, sitting up in bed. She is awake, alert. No acute distress. HEENT: Normocephalic, atraumatic. Conjunctivae pink. Oral mucosa moist. Neck : Supple. No JVD. Cardiovascular: Regular rate and rhythm. There is no murmur appreciated. Pulmonary: She has equal excursion. She is clear bilaterally. There is no increased work of breathing noted. Abdomen: Soft. Positive bowel sounds. : Not inspected. She has minimal void with hemodialysis assist. Extremities: No clubbing or cyanosis. Has some trace dependent edema. LABORATORY DATA: WBC of 16.3, hemoglobin 9.7, hematocrit 32.6. Sodium 131, potassium 5.2, CO2 of 23, creatinine 8.5, calcium 9.3. ASSESSMENT AND PLAN: 1. End-stage renal disease management. Today is her routine dialysis day. Will dialyze her on a 2-potassium bath/ultrafiltrate to dry weight/4-hour treatment. 2. Hypotension, improved. Again, we have increased her midodrine. She has some chronic hypotension noted. Still no indication. 3. Electrolytes, acid-base balance acceptable. 4. Bradycardia. Cardiology following. 5. Anemia. Continue Epogen. Seen, data reviewed, discussed with Bere Mckeon on 03/27/17. I agree with the above assessment and plan of care. rg Dictated by SYEDA Olmstead for Jose David Hollingsworth MD cc: Jose David Hollingsworth MD [facility]
[2017-03-27 09:29] LABS: EOS 2 % (1-10); HYPOCHROM 1+; LYMPHS 24 % (21-51)
--- NOTE | 2017-03-27 09:56 | EKG Report ---
Test Performed on : 03/27/2017 08:45:16 AM Test Reason : bradycardia Blood Pressure : / mmHG Vent. Rate : 048 BPM Atrial Rate : 048 BPM P-R Int : 180 ms QRS Dur : 092 ms QT Int : 438 ms P-R-T Axes : 045 021 025 degrees QTc Int : 391 ms Sinus bradycardia. Otherwise normal ECG When compared with ECG of 24-MAR-2017 05:35, (Unconfirmed) No significant change was found Confirmed by Apurva Polo MD ([id number]) on 03/28/2017 6:03:19 AM
[2017-03-27] MEDS: XANAX PO SCH ×3 (14:14→17:48)
[2017-03-27] MEDS: FOLIC ACID PO SCH (14:14)
[2017-03-27] MEDS: COLACE PO SCH (14:14)
[2017-03-27] MEDS: CULTURELLE PO SCH (14:15)
[2017-03-27] MEDS: EPOGEN SUBQ SCH (14:15)
[2017-03-27] MEDS: ESTRACE VAGINAL CREAM VAG SCH (14:16)
[2017-03-27] MEDS: PLAVIX PO SCH (14:16)
[2017-03-27] MEDS: ASPIRIN PO SCH (14:16)
[2017-03-27] MEDS: PROAMATINE PO SCH ×3 (14:16→17:55)
[2017-03-27] MEDS: CELEXA PO SCH (14:16)
[2017-03-27] MEDS: AUGMENTIN PO SCH ×2 (14:17→21:38)
[2017-03-27] MEDS: HEPARIN SUBQ SCH ×2 (14:17→21:38)
[2017-03-27] MEDS ORDERED: STERILE WATER INJ. ONE (14:22)
--- NOTE | 2017-03-27 15:22 | PROGRESS NOTE ---
DATE: 03/27/2017 SUBJECTIVE: Ms. Marino reports she feels quite well today. She is tolerating oral intake. PHYSICAL EXAMINATION: Vital signs: Afebrile. Heart rates seemed to be running predominantly in the 50s to 60s. She has occasionally had a 45. Blood pressure continues to be somewhat erratic. Over the last several days she seems to be running predominantly in the 80s to 90s systolic with occasionally up in the 100s to 120s. General: No acute distress. Cardiovascular: She sounds to be in a regular rate and rhythm. She has a soft 2/6 systolic murmur at the right upper sternal border. No lower extremity edema. Chest: Exam is relatively clear bilaterally. No increased work of breathing. Abdomen: Soft, nontender, nondistended. No obvious organomegaly. PERTINENT DATA: Echocardiogram from the was reviewed. Normal ejection fraction. No evidence of any effusion. Laboratory data shows white count of 16.3 today, hematocrit 32, platelet count 479,000. Sodium 131, potassium 5.2, BUN 73, creatinine is 8.5. ASSESSMENT: Blood pressure that is quite erratic with periodic hypotensive episodes currently maintained on midodrine. PLAN: Do not have any other recommendations at this point. The patient is being managed by Nephrology for her hemodialysis. She continues to be on midodrine presently as well as hydrocortisone. She does not have any appreciable significant pericardial effusion present on her echocardiogram. Please contact us if we can be of further assistance with this patient. cc: Good Martinez MD
--- NOTE | 2017-03-27 16:53 | PROGRESS NOTE ---
DATE: 03/27/2017 SUBJECTIVE: Today, Ms. Marino referred to be doing a lot better. Denies any complaints. OBJECTIVE: Vital signs: Blood pressure is 84/47, pulse was 45, respiration 18, temperature is 97.8 degrees. General: Ms. Marino is a 69-year-old female. She was in bed. HEENT: Mucosa is pink and moist. Anicteric. Acyanotic. Neck: Supple. Chest: Good air entry bilateral. No crepitations. No rhonchi. Cardiovascular: Slightly bradycardic and mild 2-3/6 aortic systolic murmur. Abdomen: Soft. There is no hepatosplenomegaly. There is an ostomy bag on the right side of the lower abdominal wall. 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 There is no focal neurological deficit. LABORATORY DATA: WBC is 14.32. Hemoglobin is 9.7, platelet count of 472,000. There are no bands on the peripheral smear. Chemistry is reviewed. Potassium is down to 5.2. The result is consistent with end-stage renal disease. ASSESSMENT: 1. Sepsis on presentation secondary to right lower lobe pneumonia. This is significantly improved. 2. Altered mental status on presentation due toxic encephalopathy, likely from medications as well as infections, improved. 3. Hypotension. Etiology is not apparently clear. Patient continues to have these erratic readings, sometimes low, other times normal. She continues to be on midodrine in and hydrocortisone. We are going to switch the hydrocortisone to p.o. since we have not seen any remarkable improvement and we trying to wean her off. 4. Muscle jerks and tremors likely due to medication withdrawal. This is resolved. 5. End stage renal disease on hemodialysis. 6. Hyperkalemia. This will be addressed during dialysis. 7. Bradycardia also not quite sure. Occasionally patient does have normal pulse. We did an EKG this morning. It seems sinus. Not really sure if the patient has an underlying sick sinus syndrome. Patient is being evaluated by Cardiology. The patient does not have any symptoms and does not show any symptoms for both the bradycardia and the hypotension. DISPOSITION: In general, Ms. Marino is doing a lot better. The mentation is completely resolved. Her blood pressures continues to be on the low side but she is completely asymptomatic. If is there are no other recommendations from Cardiology, then I think the patient can be discharged safely home tomorrow. She is a resident of [facility]. cc: Isrrael Blackmon MD
[2017-03-27] MEDS: ZOFRAN IV PRN (17:48)
[2017-03-27] MEDS: DESYREL PO SCH (21:38)
[2017-03-28 06:30] LABS: BASO% 0.4 % (0.0-0.8); EOS# 0.22 X1000 (0.0-0.7); EOS% 1.5 % (0.0-10.0); HEMATOCRIT 34.1 % (37.0-47.0); HEMOGLOBIN 10.1 g/dL (12.0-16.0); IMM GRAN# 0.05 X1000 (0.0-0.04); IMM GRAN% 0.4 % (0.0-0.5); LYMPH# 2.61 X1000 (1.2-3.4); LYMPH% 18.3 % (20.5-51.1); MANUAL DIFF NEEDED? NO; MCH 31.9 PG (27-31); MCHC 29.6 g/dL (33-37); MCV 107.6 FL (81-99); MONO# 0.86 X1000 (0.11-0.59); MPV 9.8 FL (7.4-10.4); NEUT% 73.4 % (42.2-75.2); PLT 459 X1000 (130-400); RBC 3.17 XMIL (4.2-5.4)
[2017-03-28 06:40] LABS: CALCIUM 9.1 mg/dL (8.8-10.2); POTASSIUM 5.1 mmol/L (3.5-5.1)
--- NOTE | 2017-03-28 07:33 | Diag Imaging Result Doc PS360 ---
CHEST-PORTABLE - 03/28/2017 INDICATION: dyspnea TECHNIQUE: COMPARISON: 03/25/2017 FINDINGS: Stable moderate right hemidiaphragm elevation. Stable surgical clips in the left axilla. Heart size is borderline enlarged. Pulmonary vascularity is also borderline. No focal infiltrates, pneumothorax, or pleural effusion. IMPRESSION: No change from prior. Electronically signed by Jaylon Coombs 03/28/2017 7:31 AM
[2017-03-28] MEDS: PROAMATINE PO SCH ×2 (08:46→12:47)
[2017-03-28] MEDS: COLACE PO SCH (08:46)
[2017-03-28] MEDS: AUGMENTIN PO SCH (08:46)
[2017-03-28] MEDS: PLAVIX PO SCH (08:46)
[2017-03-28] MEDS: HEPARIN SUBQ SCH (08:46)
[2017-03-28] MEDS: CELEXA PO SCH (08:46)
[2017-03-28] MEDS: FOLIC ACID PO SCH (08:46)
[2017-03-28] MEDS: CULTURELLE PO SCH (08:47)
[2017-03-28] MEDS: XANAX PO SCH ×2 (08:47→12:47)
[2017-03-28] MEDS: ASPIRIN PO SCH (08:47)
--- NOTE | 2017-03-28 09:03 | PROGRESS NOTE ---
DATE: 03/28/2017 SUBJECTIVE: Patient is sitting up in a chair. She states that she is to be discharged to home later today. She states that she had no issues with dialysis or blood pressure dropping yesterday. OBJECTIVE: Vital Signs: Temperature 97.7 degrees, pulse 55, respiratory rate 12, blood pressure 100/40. Intake 690 mL. Output 2.4 L. PHYSICAL EXAMINATION: General: This is an elderly female, sitting up in a chair , awake and alert in no acute distress. HEENT: Normocephalic, atraumatic. Conjunctivae pink. Oral mucosa moist. Neck is supple. No JVD. Cardiovascular: Regular rate and rhythm without murmur or gallop. Pulmonary: Equal excursion. She is clear bilaterally. Abdomen is soft, positive bowel sounds. : Not inspected. She continues with minimal void and hemodialysis assist. Extremities: Trace pretibial edema. No clubbing, cyanosis. Integumentary: Skin is warm and dry, otherwise. LABORATORY DATA: WBC of 14.2, hemoglobin 10.1. Sodium 133, potassium 5.1, CO2 of 21. Creatinine 6.6. Calcium 9.3. ASSESSMENT AND PLAN: 1. End-stage renal disease management. She dialyzed yesterday. At the end of treatment yesterday, she was 4 kilos below her dry weight. No changes were made in the computer. 2. Hypotension. Her midodrine was increased, and she had no issues noted on dialysis yesterday. 3. Electrolytes, acid-base balance, anemia. These have been acceptable. 4. Bradycardia. Followed by primary and Cardiology. Data reviewed, discussed with Bere Mckeon on 03/28/17. I agree with the above assessment and plan of care. rg Dictated by SYEDA Olmstead for Jose David Hollingsworth MD cc: Jose David Hollingsworth MD [facility]
--- NOTE | 2017-03-28 11:09 | DISCHARGE SUMMARY ---
ADMISSION DATE: 03/22/2017 DISCHARGE DATE: 03/28/2017 CONSULTATIONS: 1. Dr. Jose David Hollingsworth with Nephrology. 2. Dr. Good Martinez with Cardiology. PERTINENT PROCEDURES: 1. Chest CT showed cardiomegaly with pulmonary edema, prominent coronary artery calcifications, bibasilar atelectasis with questionable tiny infiltrate at the right lower lobe. 2. Echocardiogram limited views showed an EF greater than 70% with no regional wall motion abnormalities. 3. Abdominal x-ray showed no evidence of acute pathology. DISCHARGE DIAGNOSES: 1. Sepsis on presentation secondary to right lower lobe pneumonia, improved. The patient is being discharged on Augmentin. 2. Altered mental status on presentation due to toxic encephalopathy likely secondary from medications as well as infectious process improved. 3. Hypotension etiology is not apparently clear. The patient continues to have erratic readings, sometimes low other times normal. She continues on her midodrine, as well as hydrocortisone stable. 4. Muscle jerks and tremors likely due to medication withdrawal resolved. 5. End-stage renal disease on hemodialysis. Patient will continue her regular schedule. 6. Hypokalemia that was addressed during dialysis. 7. Bradycardia. She was evaluated by cardiology and found to be asymptomatic and did not require any intervention. She was maintained on her midodrine for her hypotension. Repeat echo did not appreciate any pericardial effusion. Cardiology signed off, stable. HOSPITAL COURSE: Ms. Marino is a 71-year-old, female, well known to our service with history of end-stage renal disease on hemodialysis, COPD, most recent admission for ischemic colitis status post extended right hemicolectomy with end ileostomy on 2016. Currently resides at [facility] and was sent to the ED for altered mental status and hypotension. Her blood pressure in the ED had been running in the 70s. The patient herself was unable to give an account of her history at that time secondary to the fact that she was slightly confused. Her main report was of a cough. Laboratory data in the ED showed leukocytosis, anemia mild hypokalemia and hyponatremia. Chest x-ray showed a questionable right lower lobe infiltrate. She was placed on a broad-spectrum antibiotic to treat for her sepsis. For her hypotensiveness, she was placed on vasopressors and admitted to ICU for treatment and evaluation. Sepsis protocol was initiated and followed. Nephrology was consulted to help with medication dosing as well to continue her on her hemodialysis. Despite her hypotension they were able to ultrafiltrate her. Her hypokalemia was managed during dialysis. Her anemia was below target. They gave her refill for 8 minutes and given her hypotension despite her midodrine. Nephrology wanted to try to go without narcotics as well as benzodiazepines as much as possible. Her cortisol level was at a normal low. She was placed on IV steroids and observed in the ICU for another 24 hours. At some point, I did initiate norepinephrine. Cardiology was asked to see the patient in reference to hypotension and bradycardia. They did agree with the initiation of steroids and continued on midodrine. They did not feel that she was symptomatic from her bradycardia, and to continue holding any heart rate lowering medications. She was able to be weaned off her pressors. She did have some muscle jerks and tremors that they felt was likely due to medication withdrawal. They did give her some low- dose sedatives that were restarted. They have essentially resolved since that time. She remained on her hemodialysis treatment. Her x-ray has shown improvement in her pneumonia. She was switched to oral antibiotics. She was moved out of the ICU to the regular floor. Her hypotension has improved with the increase in her midodrine. Her IV steroids were changed to p.o. Her mentation is back to normal. She has been getting out with physical therapy, sitting up in a chair. She is appropriate for discharge back to [facility] today. VITAL SIGNS: Temperature is 98.5 degrees, heart rate 50, respirations blood pressure 103/58, O2 is 100% on 2 L nasal cannula. DISCHARGE DIET: Renal. DISCHARGE MEDICATIONS: As per Dr. Blackmon: 1. Xanax 0.5 mg p.o. t.i.d. 2. Augmentin 875 mg p.o. q.12 hours. 3. Aspirin 81 mg p.o. daily. 4. Celexa 20 mg p.o. daily. 5. Plavix 75 mg p.o. daily. 6. Colace 100 mg p.o. daily. 7. Epogen 84808 units subcutaneous Monday, Monday, Monday. 8. Estrace vaginal cream 1 application vaginal daily. 9. Folic acid 1 mg p.o. daily. 10. [place] 7.5, 1 tab p.o. q.8 hours p.r.n. 11. Probiotic 1 each p.o. daily. 12. Midodrine 10 mg p.o. t.i.d. 13. Nepro p.o. t.i.d. 14. Zofran 4 mg p.o. q.6 hours p.r.n. 15. Pravastatin 40 mg p.o. at bedtime. FOLLOW-UP: Ms. Marino is being discharged back to [facility] where she will continue on her regular scheduled hemodialysis. She will need to continue to take all her antibiotic as prescribed and continue with this aggressive pulmonary toilet. She can return to the ED for any worsening of symptoms. DISCHARGE TIME: 30 minutes. Dictated by SYEDA Law for Isrrael Blackmon MD cc: Isrrael Blackmon MD MTDD
[2017-03-28 11:17] VITALS: BP 112/52
[2017-03-28] MEDS: ESTRACE VAGINAL CREAM VAG SCH (12:47)
== END 2017-03-28 17:46 ==
LOC: SUPCPDRO → ED 06:33 → ICU 12:17 → 4N 03-25 13:36
PROVIDERS: ATTEND Internal Medicine

== ENCOUNTER 2017-05-09 12:49 | Inpatient (IN) ==
[2017-05-09 14:39] LABS: MANUAL DIFF NEEDED? NO
[2017-05-09 14:55] LABS: BASO% 0.3 % (0.0-0.8); EOS# 0.46 X1000 (0.0-0.7); EOS% 3.8 % (0.0-10.0); IMM GRAN# 0.03 X1000 (0.0-0.04); IMM GRAN% 0.2 % (0.0-0.5); LYMPH# 2.99 X1000 (1.2-3.4); LYMPH% 24.9 % (20.5-51.1); MCH 32.6 PG (27-31); MCHC 32.4 g/dL (33-37); MCV 100.5 FL (81-99); MONO# 1.06 X1000 (0.11-0.59); MONO% 8.8 % (1.7-9.3); MPV 11.5 FL (7.4-10.4); PLT 200 X1000 (130-400); RBC 3.68 XMIL (4.2-5.4)
[2017-05-09 15:06] LABS: INR 0.98; PROTIME 10.3 Seconds (9.2-11.7); PTT 28.2 Seconds (22.0-36.0)
[2017-05-09 15:24] LABS: ALBUMIN 3.5 g/dL (3.5-5.0); CALCIUM 8.8 mg/dL (8.8-10.2); MAGNESIUM 1.7 mg/dL (1.5-2.7); POTASSIUM 5.9 mmol/L (3.5-5.1); TOTAL BILIRUBIN 0.19 mg/dL (0.20-1.00); TOTAL PROTEIN 6.9 g/dL (6.3-8.3)
[2017-05-09] MEDS ORDERED: D50W SYRINGE IV ONE ×2 (15:29→17:50)
[2017-05-09] MEDS ORDERED: HUMULIN R IV ONE (15:29)
[2017-05-09] MEDS ORDERED: BLISTEX MEDICATED BERRY LIP BALM TOP PRN (16:53)
[2017-05-09] MEDS ORDERED: DUONEB (A & A) INH PRN (18:26)
[2017-05-09] MEDS ORDERED: ZOFRAN IV PRN (18:26)
[2017-05-09] MEDS ORDERED: TYLENOL PO PRN (18:26)
[2017-05-09 18:34] LABS: ALLEN TEST YES; BE -18.1 mmoll (-3.0-3.0); BLOOD TYPE ARTERIAL; DRAW SITE R BRACHIAL; O2(CT) 16.3 mL/dL (15.0-23.0); PCO2(98.6) 37 mmHg (35-45); PO2(98.6) 78 mmHg (60-100); SAMPLE BLOOD; SAO2 95.9 % (95.0-100.0); THB 12.4 g/dL (11.5-17.4)
[2017-05-09 18:35] LABS: MODALITY ROOM AIR
[2017-05-09 18:37] LABS: pH(98.6) 7.08 (7.35-7.45)
[2017-05-09 21:49] LABS: ALLEN TEST YES; BE -19.6 mmoll (-3.0-3.0); BLOOD TYPE ARTERIAL; DRAW SITE R RADIAL; METHB 1.3 % (0.0-1.5); O2(CT) 16.2 mL/dL (15.0-23.0); PCO2(98.6) 36 mmHg (35-45); PO2(98.6) 74 mmHg (60-100); SAMPLE BLOOD; SAO2 94.2 % (95.0-100.0); THB 12.6 g/dL (11.5-17.4)
[2017-05-09 21:50] LABS: MODALITY ROOM AIR; pH(98.6) 7.05 (7.35-7.45)
[2017-05-09] MEDS ORDERED: SODIUM BICARBONATE 8.4% IV PUSH ONE (21:52)
[2017-05-09] MEDS ORDERED: VELTASSA PO ONE (23:10)
[2017-05-09] MEDS ORDERED: NS 250 ML ONE (23:31)
[2017-05-10 05:28] LABS: ALLEN TEST YES; BE -15.4 mmoll (-3.0-3.0); BLOOD TYPE ARTERIAL; DRAW SITE R RADIAL; METHB 1.2 % (0.0-1.5); O2(CT) 15.3 mL/dL (15.0-23.0); PCO2(98.6) 44 mmHg (35-45); PO2(98.6) 72 mmHg (60-100); SAMPLE BLOOD; SAO2 94.4 % (95.0-100.0); THB 11.9 g/dL (11.5-17.4)
[2017-05-10 05:29] LABS: MODALITY ROOM AIR
[2017-05-10] MEDS ORDERED: SODIUM BICARBONATE 8.4% IV PUSH ONE (06:11)
[2017-05-10] MEDS: PRILOSEC PO SCH (06:15)
[2017-05-10 06:43] LABS: MANUAL DIFF NEEDED? NO
[2017-05-10 06:54] LABS: BASO% 0.3 % (0.0-0.8); EOS# 0.14 X1000 (0.0-0.7); EOS% 1.4 % (0.0-10.0); HEMATOCRIT 36.5 % (37.0-47.0); HEMOGLOBIN 11.5 g/dL (12.0-16.0); IMM GRAN# 0.03 X1000 (0.0-0.04); IMM GRAN% 0.3 % (0.0-0.5); LYMPH# 2.02 X1000 (1.2-3.4); LYMPH% 19.7 % (20.5-51.1); MCH 31.9 PG (27-31); MCHC 31.5 g/dL (33-37); MCV 101.4 FL (81-99); MONO# 0.91 X1000 (0.11-0.59); MONO% 8.9 % (1.7-9.3); MPV 10.8 FL (7.4-10.4); NEUT% 69.4 % (42.2-75.2); PLT 206 X1000 (130-400)
[2017-05-10 07:05] LABS: INR 1.02; PROTIME 10.7 Seconds (9.2-11.7); PTT 31.5 Seconds (22.0-36.0)
[2017-05-10 07:40] LABS: ALBUMIN 3.2 g/dL (3.5-5.0); CALCIUM 8.2 mg/dL (8.8-10.2); MAGNESIUM 1.8 mg/dL (1.5-2.7); POTASSIUM 5.4 mmol/L (3.5-5.1); TOTAL BILIRUBIN 0.12 mg/dL (0.20-1.00); TOTAL PROTEIN 6.6 g/dL (6.3-8.3)
[2017-05-10] MEDS ORDERED: TIGHT: 0.2 ML/HR MISC PRN (08:42)
[2017-05-10] MEDS ORDERED: NS 2,000 ML MISC PRN (08:42)
[2017-05-10] MEDS ORDERED: HEPARIN IV PRN (08:42)
[2017-05-10] MEDS ORDERED: VELTASSA PO SCH (09:00)
[2017-05-10] MEDS ORDERED: NS 250 ML ONE (13:34)
[2017-05-10] MEDS ORDERED: NS 250 ML IV ONE (13:40)
[2017-05-10] MEDS: NORCO-7.5 PO PRN (13:52)
[2017-05-10] MEDS: XANAX PO SCH ×3 (13:52→17:40)
[2017-05-10] MEDS: ZYRTEC PO SCH (13:56)
[2017-05-10] MEDS: ASPIRIN EC PO SCH (13:56)
[2017-05-10] MEDS: CELEXA PO SCH (13:56)
[2017-05-10] MEDS: FOLIC ACID PO SCH (13:56)
[2017-05-10] MEDS: PROAMATINE PO SCH ×3 (13:59→17:40)
[2017-05-10] MEDS ORDERED: VANCOMYCIN IV PER PHARMACY MISC SCH (14:00)
[2017-05-10] MEDS ORDERED: VANCOMYCIN 1 GM/NS 1 GM/250 ML IVPB IV SCH (15:15)
[2017-05-10] MEDS ORDERED: VANCOMYCIN 1 GM/NS 1 GM/250 ML IVPB IV ONE (17:00)
[2017-05-10] MEDS: DOPAMINE 800 MG/D5W 800 MG/500 ML IV.SOLN IV SCH ×2 (18:05→20:46)
[2017-05-10] MEDS: DESYREL PO SCH (21:22)
[2017-05-10] MEDS: HEPARIN SUBQ SCH (21:22)
[2017-05-10] MEDS: PRAVACHOL PO SCH (21:22)
[2017-05-11 05:20] LABS: HEMATOCRIT 41.8 % (37.0-47.0); HEMOGLOBIN 13.4 g/dL (12.0-16.0); MCH 32.5 PG (27-31); MCHC 32.1 g/dL (33-37); MCV 101.5 FL (81-99); MPV 10.7 FL (7.4-10.4); RBC 4.12 XMIL (4.2-5.4)
[2017-05-11 06:09] LABS: ALBUMIN 3.1 g/dL (3.5-5.0); CALCIUM 8.2 mg/dL (8.8-10.2); POTASSIUM 4.1 mmol/L (3.5-5.1)
[2017-05-11] MEDS: PRILOSEC PO SCH (07:19)
[2017-05-11] MEDS: HEPARIN SUBQ SCH ×2 (08:35→20:39)
[2017-05-11] MEDS: FOLIC ACID PO SCH (08:35)
[2017-05-11] MEDS: ASPIRIN EC PO SCH (08:35)
[2017-05-11] MEDS: PLAVIX PO SCH (08:35)
[2017-05-11] MEDS: XANAX PO SCH ×3 (08:36→16:30)
[2017-05-11] MEDS: COLACE PO SCH (08:36)
[2017-05-11] MEDS: CELEXA PO SCH (08:36)
[2017-05-11] MEDS: CULTURELLE PO SCH (08:36)
[2017-05-11] MEDS: ZYRTEC PO SCH (08:36)
[2017-05-11] MEDS: PROAMATINE PO SCH ×3 (09:36→16:31)
[2017-05-11] MEDS ORDERED: CORTROSYN IV ONE (09:49)
[2017-05-11] MEDS ORDERED: SODIUM CHLORIDE 0.9% MISC ONE (10:00)
[2017-05-11] MEDS: DOPAMINE 800 MG/D5W 800 MG/500 ML IV.SOLN IV SCH (17:28)
[2017-05-11] MEDS: DESYREL PO SCH (20:39)
[2017-05-11] MEDS: PRAVACHOL PO SCH (20:40)
[2017-05-12] MEDS: PRILOSEC PO SCH (06:06)
[2017-05-12 06:13] LABS: ALBUMIN 3.1 g/dL (3.5-5.0); CALCIUM 8.5 mg/dL (8.8-10.2); POTASSIUM 3.9 mmol/L (3.5-5.1)
[2017-05-12] MEDS ORDERED: NS 2,000 ML MISC PRN (06:53)
[2017-05-12] MEDS ORDERED: TIGHT: 0.2 ML/HR MISC PRN (06:53)
[2017-05-12] MEDS ORDERED: HEPARIN IV PRN (06:53)
[2017-05-12] MEDS: ZYRTEC PO SCH (13:16)
[2017-05-12] MEDS: ASPIRIN EC PO SCH (13:16)
[2017-05-12] MEDS: XANAX PO SCH ×3 (13:16→16:17)
[2017-05-12] MEDS: FOLIC ACID PO SCH (13:16)
[2017-05-12] MEDS: CULTURELLE PO SCH (13:16)
[2017-05-12] MEDS: COLACE PO SCH (13:16)
[2017-05-12] MEDS: PLAVIX PO SCH (13:16)
[2017-05-12] MEDS: CELEXA PO SCH (13:16)
[2017-05-12] MEDS: HEPARIN SUBQ SCH ×3 (13:17→17:49)
[2017-05-12] MEDS: PROAMATINE PO SCH ×3 (13:18→16:17)
[2017-05-12] MEDS: DOPAMINE 800 MG/D5W 800 MG/500 ML IV.SOLN IV SCH (16:19)
[2017-05-12] MEDS: PRAVACHOL PO SCH (21:02)
[2017-05-12] MEDS: DESYREL PO SCH (21:02)
[2017-05-13] MEDS: HEPARIN SUBQ SCH ×2 (05:51→17:09)
[2017-05-13] MEDS: PRILOSEC PO SCH (07:22)
[2017-05-13] MEDS: COLACE PO SCH (08:32)
[2017-05-13] MEDS: CELEXA PO SCH (08:32)
[2017-05-13] MEDS: CULTURELLE PO SCH (08:32)
[2017-05-13] MEDS: PROAMATINE PO SCH ×3 (08:32→17:09)
[2017-05-13] MEDS: ZYRTEC PO SCH (08:32)
[2017-05-13] MEDS: PLAVIX PO SCH (08:32)
[2017-05-13] MEDS: FOLIC ACID PO SCH (08:32)
[2017-05-13] MEDS: ASPIRIN EC PO SCH (08:32)
[2017-05-13] MEDS ORDERED: XANAX PO SCH (09:00)
[2017-05-13] MEDS: XANAX PO SCH ×3 (09:34→17:09)
[2017-05-13 11:14] LABS: HEMATOCRIT 40.8 % (37.0-47.0); HEMOGLOBIN 12.9 g/dL (12.0-16.0); MCH 32.3 PG (27-31); MCHC 31.6 g/dL (33-37); MCV 102.3 FL (81-99); MPV 10.8 FL (7.4-10.4); RBC 3.99 XMIL (4.2-5.4)
[2017-05-13] MEDS: NORCO-7.5 PO PRN (11:15)
[2017-05-13 11:30] LABS: ALBUMIN 3.6 g/dL (3.5-5.0); CALCIUM 8.8 mg/dL (8.8-10.2); POTASSIUM 3.7 mmol/L (3.5-5.1)
[2017-05-13] MEDS: DESYREL PO SCH (20:28)
[2017-05-13] MEDS: PRAVACHOL PO SCH (20:28)
[2017-05-14] MEDS: NORCO-7.5 PO PRN ×3 (02:15→20:41)
[2017-05-14] MEDS: PRILOSEC PO SCH ×2 (05:54→07:52)
[2017-05-14] MEDS: HEPARIN SUBQ SCH ×2 (05:54→17:00)
[2017-05-14 06:13] LABS: HEMATOCRIT 37.1 % (37.0-47.0); HEMOGLOBIN 11.4 g/dL (12.0-16.0); MCH 31.2 PG (27-31); MCHC 30.7 g/dL (33-37); MCV 101.6 FL (81-99); MPV 10.8 FL (7.4-10.4); RBC 3.65 XMIL (4.2-5.4)
[2017-05-14 06:53] LABS: CALCIUM 8.7 mg/dL (8.8-10.2); MAGNESIUM 1.7 mg/dL (1.5-2.7); POTASSIUM 4.2 mmol/L (3.5-5.1)
[2017-05-14] MEDS: CELEXA PO SCH (10:03)
[2017-05-14] MEDS: CULTURELLE PO SCH (10:04)
[2017-05-14] MEDS: COLACE PO SCH (10:04)
[2017-05-14] MEDS: XANAX PO SCH ×3 (10:04→16:59)
[2017-05-14] MEDS: ZYRTEC PO SCH (10:04)
[2017-05-14] MEDS: FOLIC ACID PO SCH (10:04)
[2017-05-14] MEDS: PLAVIX PO SCH (10:04)
[2017-05-14] MEDS: PROAMATINE PO SCH ×3 (10:04→16:59)
[2017-05-14] MEDS: ASPIRIN EC PO SCH (10:04)
[2017-05-14] MEDS ORDERED: ROCEPHIN 1 GM in NS 50 ML IV SCH (18:00)
[2017-05-14] MEDS: DESYREL PO SCH (20:40)
[2017-05-14] MEDS: PRAVACHOL PO SCH (20:41)
[2017-05-15] MEDS: HEPARIN SUBQ SCH (05:29)
[2017-05-15] MEDS: NORCO-7.5 PO PRN ×2 (05:30→14:12)
[2017-05-15] MEDS: PRILOSEC PO SCH (06:23)
[2017-05-15 06:37] LABS: ALBUMIN 3.4 g/dL (3.5-5.0); POTASSIUM 4.7 mmol/L (3.5-5.1)
[2017-05-15] MEDS ORDERED: HEPARIN IV PRN (06:48)
[2017-05-15] MEDS: CULTURELLE PO SCH (08:38)
[2017-05-15] MEDS: XANAX PO SCH ×2 (08:38→13:43)
[2017-05-15] MEDS: COLACE PO SCH (08:38)
[2017-05-15] MEDS: FOLIC ACID PO SCH (08:39)
[2017-05-15] MEDS: CELEXA PO SCH (08:39)
[2017-05-15] MEDS: ZYRTEC PO SCH (08:39)
[2017-05-15] MEDS: ASPIRIN EC PO SCH (08:39)
[2017-05-15] MEDS: PROAMATINE PO SCH ×2 (08:39→13:43)
[2017-05-15] MEDS: PLAVIX PO SCH (08:39)
[2017-05-15] MEDS ORDERED: HEPARIN ONE (08:56)
[2017-05-15] MEDS ORDERED: NS 2,000 ML ONE (08:56)
[2017-05-15] MEDS: NS 2,000 ML MISC PRN ×2 (09:59→10:37)
[2017-05-15] MEDS: TIGHT: 0.2 ML/HR MISC PRN ×2 (10:00→10:37)
[2017-05-15] MEDS ORDERED: NS 1,000 ML ONE (10:08)
[2017-05-15 15:00] VITALS: BP 75/49
== END 2017-05-15 18:33 ==
LOC: SUPCPDRO → ED 12:49 → EDIPHOLD 19:45 → 3N 20:24 → ICU 05-10 17:06 → 4N 05-12 22:10 → ICU 05-12 22:16 → 4N 05-14 01:05
PROVIDERS: ATTEND Internal Medicine

== ENCOUNTER 2019-10-25 10:50 | Inpatient (IN) ==
--- NOTE | 2019-10-25 12:16 | PROVIDER DOCUMENTATION ---
This chart was entered by Ping Dee Scribe, acting as scribe for Galen Blair MD. HPI-General Adult - General Chief Complaint: For Procedure Stated Complaint: PORT POPPED OUT Time Seen by Provider: 10/25/19 11:06 Source: patient, EMS (first response) Allergies/Adverse Reactions: Patient Allergies Allergy/AdvReac Type Severity Reaction Status Date / Time No Known Allergies Allergy Verified 01/14/19 10:06 Home Medications: Home Medication List Medication Instructions Recorded Confirmed Last Taken Type Clopidogrel Bisulfate [Plavix] 75 mg PO DAILY 05/17/16 01/15/19 01/21/19 09:00 History Docusate Sodium [Colace] 100 mg PO DAILY 05/17/16 01/15/19 01/21/19 09:00 History Folic Acid 1 mg PO DAILY 05/17/16 01/15/19 01/21/19 09:00 History Pravastatin Sodium 40 mg PO HS 05/17/16 01/15/19 10/15/17 History Aspirin [Aspir-Low] 81 mg PO DAILY 05/09/17 01/15/19 01/15/19 09:00 History Calcium Acetate 3 cap PO DAILY 03/02/18 01/15/19 01/21/19 09:00 History Dextromethorphan HBr/Quinidine 1 cap PO BID 03/02/18 01/15/19 01/21/19 21:00 History [Nuedexta 20-10 mg Capsule] Famotidine [Pepcid] 20 mg PO BID 03/02/18 01/15/19 01/21/19 21:00 History Ondansetron HCl [Zofran] 4 mg PO Q6H PRN 03/02/18 01/15/19 Unknown History Acetaminophen [Tylenol] 2 tab PO Q6H PRN 01/15/19 01/15/19 01/15/19 09:00 History Acetaminophen with Codeine 1 tab PO Q6H PRN 01/15/19 01/15/19 01/15/19 09:00 History [Tylenol with Codeine #3 Tablet] Alprazolam [Xanax] 0.25 mg PO BID 01/15/19 01/15/19 01/21/19 21:00 History B Complex with Vitamin C [Vitamin 1 tab PO DAILY 01/15/19 01/15/19 01/21/19 09:00 History B Complex-C] Citalopram Hydrobromide 40 tab PO DAILY 01/15/19 01/15/19 01/21/19 09:00 History [Citalopram HBr] Diphenoxylate/Atropine [Lomotil] 1 tab PO Q12H PRN 01/15/19 01/15/19 Unknown History L.acidoph,Paracasei, B.lactis 1 cap PO DAILY 01/15/19 01/15/19 01/21/19 09:00 History [Probiotic] Lansoprazole [Prevacid] 30 mg PO QHS 01/15/19 01/15/19 Unknown History Meclizine [Antivert] 12.5 mg PO BID 01/15/19 01/15/19 01/21/19 21:00 History Melatonin 5 mg PO QHS 01/15/19 01/15/19 Unknown History Midodrine HCl 10 mg PO TID 01/15/19 01/15/19 Unknown History Mirtazapine [Remeron] 0.5 tab PO QHS 01/15/19 01/15/19 Unknown History Nystatin Powder [Mycostatin Powder] 1 dose TOP BID 01/15/19 01/15/19 01/21/19 21:00 History Ranitidine HCl [Zantac] 150 mg PO BID 01/15/19 01/15/19 01/21/19 21:00 History Tizanidine HCl [Zanaflex] 4 mg PO Q8H PRN 01/15/19 01/15/19 Unknown History Trazodone HCl 0.5 tab PO QHS 01/15/19 01/15/19 01/21/19 21:00 History - History of Present Illness -Gen Adult Nature of Presenting Problems: 74 yowf presents to the ed via ems from dialysis after tx was completed. pt sts "my port popped out and dr hollingsworth sent me to ed to have sx" pt does have a 1cm raised distal portion of vascular access with clot noted. pt is laughing with staff and is in no distress on exam. no bleeding is noted Location of Pain/Injury: reports: upper extremity Quality of Pain: reports: none Severity: reports: mild Onset/Duration: reports: this morning Timing: reports: still present Context/Activities at Onset: reports: light activity Modifying Factors: improves with: nothing Associated Symptoms: reports: other (fistula issue) Similar Symptoms Previously?: No Recently seen or treated by another doctor?: Yes (dr hollingsworth) Review of Systems - Adult - REVIEW OF SYSTEMS - ADULT Constitutional: denies: chills, fever Eyes: reports: no symptoms reported Ears, Nose, Mouth & Throat: reports: no symptoms reported Cardiovascular: denies: chest pain, palpitations Respiratory: reports: no symptoms reported Gastrointestinal: denies: abdominal pain, diarrhea, nausea, vomiting Genitourinary: reports: no symptoms reported Musculoskeletal: reports: see HPI, other (LUE with fistula issue). denies: back pain, neck pain Integumentary: reports: see HPI, other (fistula issue) Neurological: reports: no symptoms reported Psychiatric: reports: no symptoms reported Endocrine: reports: no symptoms reported Hematologic/Lymphatic: reports: no symptoms reported Allergic/Immunologic: reports: no symptoms reported All Other Systems: Reviewed and Negative Past History - Adult - PAST MEDICAL HISTORY-ADULT Review of Records: reports: Old Records Reviewed, Nursing Assessment Review, Medications Reviewed, Social history reviewed & non-contributory. Major Childhood Illnesses: reports: denies history Cardiovascular: reports: HTN, ND Respiratory: reports: asthma, COPD, other (chronic respiratory failure) Gastrointestinal: reports: cancer (colon), GERD, IBS, other (gastritis) Obstetrical/Gynecological: reports: other (breast cancer/left mastectomy) Genitourinary: reports: dialysis (MWF), ESRD, kidney disease, other (chronic renal disease/failure) Musculoskeletal: reports: arthritis, other (gout) Neurological: reports: CVA, dementia, other (metabolic encephalopathy) Psychiatric: reports: anxiety, depression Endocrine/Immune: reports: anemia Other Conditions: reports: denies history - PRIOR SURGERIES/PROCEDURES Surgical/Procedure History: reports: cholecystectomy, other (mastectomy left with reconstruction, colon resection with colostomy, right ankle surgery) - PRIOR HOSPITALIZATIONS Prior Hospitalizations: reports: none - IMMUNIZATION STATUS Childhood Immunizations: See Nurse Assessment Flu Vaccine: See Nurse Assessment - FAMILY HISTORY Family History: reviewed, not pertinent - SOCIAL HISTORY Smoking: quit greater than 1 year Substance Use: denies Living Situation: family Physical Exam-General - PHYSICAL EXAM-ADULT Initial Vital Signs Reviewed: Yes (noted BP 97/55) - CONSTITUTIONAL General Appearance: appears well, alert, no apparent distress, obese - EYES Eyes: PERRL/EOMI, pink conjunctivae - HEAD, EARS, NOSE, MOUTH & THROAT HENMT: moist mucous membranes - NECK Neck: non-tender, full range of motion, supple, normal inspection - RESPIRATORY Respiratory: chest non-tender, lungs clear, normal breath sounds - CARDIOVASCULAR Cardiovascular: normal peripheral pulses, regular rate, rhythm - CHEST (BREASTS) Chest/Breast: deferred - GASTROINTESTINAL (ABDOMEN) Abdominal Exam: normal bowel sounds, non tender, soft - GENITOURINARY Female Genitalia/Pelvic Exam: deferred Rectal Exam: deferred Hemoccult Exam: deferred - LYMPHATIC Lymphatic: no adenopathy - MUSCULOSKELETAL Back Exam: no CVA tenderness, no vertebral tenderness Extremity: normal range of motion, normal capillary refill, pelvis stable, other (!cm raised distal portion of vascular access with a clot on LUE with good thrill) - SKIN Integumentary: normal color, normal turgor, warm/dry - NEUROLOGIC Neurologic: grossly normal - PSYCHIATRIC Psych/Mental Status: normal mood/affect, normal thought content, normal thought process, oriented x 3 Progress - PLAN OF CARE/RESULTS Progress/Plan/Lab Results: Vital Signs - 8 hr 10/25/19 10:59 Temperature 97.7 F Pulse Rate 87 Respiratory Rate 18 Blood Pressure 97/55 O2 Sat by Pulse Oximetry 97 Orders Category Date Time Status May use PICC Line/Port a Cath ORDERED Care 10/25/19 11:13 Active NEWS Score 2-4:Order NEWS Lactate Series NOW Care 10/25/19 11:08 Active NPO Diet 10/25/19 11:12 Active CBC WITH ELECTRONIC DIFF [HEME] Stat Lab 10/25/19 11:12 Uncollected COMPREHENSIVE METABOLIC PANEL [CHEM] Stat Lab 10/25/19 11:13 Uncollected LACTATE, PLASMA [CHEM] Q3H Lab 10/25/19 11:15 Uncollected LACTATE, PLASMA [CHEM] Q3H Lab 10/25/19 14:15 Uncollected LACTATE, PLASMA [CHEM] Q3H Lab 10/25/19 17:15 Uncollected PROTIME WITH INR [COAG] Stat Lab 10/25/19 11:12 Uncollected PTT [COAG] Stat Lab 10/25/19 11:12 Uncollected TYPE & SCREEN [BBK] Stat Lab 10/25/19 11:13 Uncollected - REASSESSMENT Reassessment #1 Time Reassessed: 12:15 Status: unchanged (Patient dialyzed today, no complaints at this time. Labs are \\pending.) - EKG 1 Time of EKG reading by physician:: 11:49 EKG Read and Signed by:: Galen Blair EKG Interpretation (*Must complete 3 of following elements*): Abnormal Rate: 62 Rhythm: nsr [place]: normal QRS: normal [place] Interval: normal Comments: early transition/ST and T wave abn consider lateral ischemia - CONSULTS/PCP/HOSPITALIST Notification #1 *Consult/PCP/Hospitalist*: dr dee called Time Discussed: 10:30 (and called again 1150) #2 Consult: dr dee Time Discussed: 12:01 Reason/Comments: will do sx tomorrow Consult Disposition: Admit (will consult with hospitalist) #3 Consult: hospitalist Time Discussed: 12:06 Consult Disposition: Will see in ED, Admit Departure - Departure Date of Disposition Decision: 10/25/19 Time of Disposition Decision: 12:15 DIAGNOSIS: ESRD (end stage renal disease) on dialysis Bleeding from dialysis shunt Qualifiers: Encounter type: initial encounter Qualified Code(s): T82.838A - Hemorrhage due to vascular prosthetic devices, implants and grafts, initial encounter Disposition: ADMITTED INPATIENT 09 Certified Medical Emergency: Emergent Condition: Stable Referrals and Follow-Ups: Jose David Hollingsworth MD [Primary Care Provider] - - Critical Care Note This patient required my direct & personal management of CC.: No Attestation - Physician/ AYLA Attestation Patient care was provided by Advanced Practice Provider:: No The physician spent face to face time with patient:: Yes Advanced Practice Provider documentation review:: Supervising physician onsite and consulted in the evaluation and care of this patient. The physician did have a face to face encounter with the patient. This chart was documented by the indicated scribe, (Ping Dee Scribe) and accurately reflects the services I performed and decisions made by , Galen Blair MD, as attested by the provider's signature.
[2019-10-25] MEDS ORDERED: ZOFRAN IV PRN (12:21)
[2019-10-25] MEDS ORDERED: TYLENOL PO PRN (12:21)
--- NOTE | 2019-10-25 13:09 | EKG Report ---
Test Performed on : 10/25/2019 11:49:27 AM Test Reason : PORT POPPED OUT Blood Pressure : / mmHG Vent. Rate : 062 BPM Atrial Rate : 062 BPM P-R Int : 182 ms QRS Dur : 076 ms QT Int : 460 ms P-R-T Axes : 036 020 021 degrees QTc Int : 466 ms Normal sinus rhythm. ST & T wave abnormality, consider lateral ischemia Abnormal ECG When compared with ECG of 20-NOV-2018 11:54, No significant change was found Unconfirmed Result
[2019-10-25 13:22] LABS: BASO# 0.05 X1000 (0.0-0.2); BASO% 0.6 % (0.0-0.8); EOS% 2.5 % (0.0-10.0); HEMATOCRIT 36.1 % (37.0-47.0); HEMOGLOBIN 10.6 g/dL (12.0-16.0); LYMPH# 1.48 X1000 (1.2-3.4); LYMPH% 18.5 % (20.5-51.1); MCH 31.3 PG (27-31); MCHC 29.4 g/dL (33-37); MCV 106.5 FL (81-99); MONO# 0.68 X1000 (0.11-0.59); MONO% 8.5 % (1.7-9.3); MPV 9.8 FL (7.4-10.4); NEUT# 5.59 X1000 (1.4-6.5); NEUT% 69.9 % (42.2-75.2); PLT 295 X1000 (130-400); RBC 3.39 XMIL (4.2-5.4); RDW 16.5 % (11.5-14.5)
[2019-10-25 13:29] LABS: INR 0.91; PROTIME 12.3 Seconds (11.0-16.0)
[2019-10-25 13:30] LABS: PTT 28.4 Seconds (22.3-41.8)
[2019-10-25 13:34] LABS: ALB/GLOB RATIO 1.1; ALBUMIN 3.8 g/dL (3.5-5.0); CALCIUM 8.5 mg/dL (8.8-10.2); CREATININE 2.7 mg/dL (0.5-0.9); POTASSIUM 3.9 mmol/L (3.5-5.1); TOTAL BILIRUBIN 0.21 mg/dL (0.20-1.00); TOTAL PROTEIN 7.3 g/dL (6.3-8.3)
--- NOTE | 2019-10-25 14:54 | HISTORY AND PHYSICAL ---
PRIMARY CARE PROVIDER: Apurva Beebe. FILM EXAMINER: Dr. Hollingsworth. CHIEF COMPLAINT: Left AV fistula ulcer. HISTORY OF PRESENT ILLNESS: Ms Weston Marino is a 74-year-old female. Apparently, she has been having issues with her AV fistula. She states around 1 month ago she noticed there was a black place on her site of her fistula. She has been messing with it, started festering up around 3 or 4 weeks ago, discontinued and then today started bleeding during dialysis. She states she got most of her dialysis around 30 minutes worth is all that was left to go on and they got control of the bleeding and that has stopped now. She is here today for AV fistula revision for in the morning with Dr. Brandon and Dr. Hollingsworth is aware. They have spoke already to each other. PAST MEDICAL HISTORY: 1. Ischemic colitis. 2. COPD. 3. End-stage renal disease on hemodialysis Monday, Monday, Fridays. 4. Anemia of chronic disease. 5. Dementia. 6. History of breast and colon cancer. 7. Anxiety disorder. 8. GERD. 9. Gout. 10. CVA with generalized weakness. 11. Coronary artery disease with history of NSTEMI. 12. Chronic diastolic congestive heart failure with heart murmur. 13. Peptic ulcer disease. 14. Hypertension. 15. Rheumatoid arthritis. 16. History of stage II decubitus on her sacrum. 17. Morbid obesity. 18. Colostomy. SURGICAL HISTORY: 1. Right hemicolectomy with end ileostomy. 2. Hysterectomy. 3. Cholecystectomy. 4. Left breast biopsy. 5. Left upper arm AV fistula. 6. Mastectomy. 7. Right ankle surgery. 8. Left knee surgery. SOCIAL HISTORY: Denies tobacco, alcohol or illicit drug use. She is resident at [facility], wheelchair bound. Third. FAMILY HISTORY: She denies. ALLERGIES: No known drug allergies. HOME MEDICATIONS: Still have not been reconciled. REVIEW OF SYSTEMS: Fourteen point review of systems are complete and all were negative for those mentioned above in HPI. She does state that the pain sometimes radiates up into her arm and shoulder. PHYSICAL EXAMINATION: VITAL SIGNS: Temperature 97.7 degrees, heart rate 87, respiratory rate 18, blood pressure 97/55, O2 saturation 97% on room air. GENERAL: Ms. Marino is a 74-year-old female she is in no acute distress. She is able answer questions appropriately. HEENT: Atraumatic, normocephalic. Pupils equal, round, reactive to light. Extraocular movements intact. Mucous membranes are moist. NECK: Trachea midline. CARDIOVASCULAR: S1, S2. Regular rate and rhythm. No rubs, gallops. She has got 1 to 2+ lower extremity pitting edema,+2 dorsalis and radial pulses. Negative JVD, carotid bruits. Positive bruit in the left upper arm. She actually does have a murmur. PULMONARY: Clear to auscultate. Bilateral breath sounds. No accessory muscle use or work of breathing noted. GI: Soft, nontender, nondistended. Positive bowel sounds x4. EXTREMITIES: Moves all extremities equally. Decreased range of motion. NEURO: And O x3. Follows commands. Sensory is intact. SKIN: Warm, dry, intact. Left upper arm with ulceration with dressing dry and intact around it. LABORATORY DATA: There is none available yet. IMAGING: None. ASSESSMENT AND PLAN: 1. Left arteriovenous fistula ulceration. Plans for arteriovenous fistula revision by Dr. Brandon in the morning. We will make her n.p.o. after midnight. 2. End-stage renal disease, receives hemodialysis Monday, Monday, Monday. She states she got most of her dialysis today except for about 30 minutes worth. 3. Ileostomy. She no complications from that. 4. History of chronic obstructive pulmonary disease, no exacerbations. 5. History of coronary artery disease. Denies chest pain. 6. Hypertension. Once home medications are reconciled. We will repeat resume those. 7. Deep venous thrombosis prophylaxis, sequentil compression devices. Dictated by SYEDA Lopez for Isrrael Blackmon MD cc: SYEDA Lopez MD
[2019-10-25] MEDS: PROAMATINE PO SCH ×2 (15:39→18:06)
--- NOTE | 2019-10-25 18:48 | HISTORY AND PHYSICAL ---
ADDENDUM: I have seen and examined Ms. Marino today. Ms. Marino is a 74-year-old female with multiple comorbidities including end-stage renal disease on hemodialysis via left AV fistula, dementia, COPD who gets dialysis on Monday, Monday, and Monday. She said she has been having some issues with the site with dark granulation tissue coming over the access. This morning after she went for dialysis she just kept bleeding nonstop, so she was brought in to be evaluated for revision of the fistula. OBJECTIVE: Vital signs: Blood pressure is 144/63, pulse of 68, respirations 18, temperature 97.9 degrees. General: Ms. Marino is a 74-year-old elderly female. She is in bed in no distress. HEENT: Mucosa is pink and moist. Anicteric. Acyanotic. Neck: Supple. Chest: Clear to auscultation. The left forearm fistula has a Band-Aid over it. Abdomen: Has a midline surgical scar with end ileostomy. LABORATORY DATA: Has been reviewed. CBC shows mild microcytic anemia. Chemistry shows creatinine of 2.7. Patient is end-stage on dialysis. ASSESSMENT: 1. Left atriovenous fistula complications with ulceration and bleeding. Patient is pending revision of the fistula bed tomorrow. 2. Endstage renal disease on HD. 3. Status post ileostomy. 4. History of chronic obstructive pulmonary disease currently not in exacerbation. 5. Hypertension. Please cc copy of the history and physical that has been dictated by the POT LINING SUPERVISOR in the chart. I have discussed the plan with her. I have also discussed my findings and plan with Ms. Marino. There was a female friend of her at the bedside at the time of the encounter. cc: Isrrael Blackmon MD [facility]
[2019-10-25] MEDS ORDERED: ZANAFLEX PO PRN (21:10)
[2019-10-25] MEDS ORDERED: LOMOTIL PO PRN (21:10)
[2019-10-25] MEDS ORDERED: PROTONIX PO PRN (21:15)
[2019-10-25] MEDS: MELATONIN PO SCH (22:39)
[2019-10-25] MEDS: PEPCID PO SCH (22:39)
[2019-10-25] MEDS: XANAX PO SCH (22:39)
[2019-10-25] MEDS: ANTIVERT PO SCH (22:40)
[2019-10-25] MEDS: SEROQUEL PO SCH (22:48)
[2019-10-25] MEDS: MYCOSTATIN POWDER TOP SCH (23:47)
[2019-10-26] MEDS: NUEDEXTA 20-10 MG CAPSULE PO SCH ×3 (02:08→20:36)
[2019-10-26 06:25] LABS: BASO# 0.04 X1000 (0.0-0.2); BASO% 0.5 % (0.0-0.8); EOS# 0.24 X1000 (0.0-0.7); EOS% 2.8 % (0.0-10.0); HEMATOCRIT 32.2 % (37.0-47.0); HEMOGLOBIN 9.5 g/dL (12.0-16.0); LYMPH# 1.87 X1000 (1.2-3.4); LYMPH% 22.1 % (20.5-51.1); MCH 31.5 PG (27-31); MCHC 29.5 g/dL (33-37); MCV 106.6 FL (81-99); MONO# 0.64 X1000 (0.11-0.59); MONO% 7.6 % (1.7-9.3); MPV 9.5 FL (7.4-10.4); NEUT# 5.66 X1000 (1.4-6.5); PLT 276 X1000 (130-400); RBC 3.02 XMIL (4.2-5.4); RDW 16.1 % (11.5-14.5); WBC 8.45 X1000 (4.8-10.8)
[2019-10-26 06:38] LABS: AGAP 14; ALB/GLOB RATIO 1.3; ALBUMIN 3.5 g/dL (3.5-5.0); ALKALINE PHOSPHATASE 157 U/L (32-104); BUN 29 mg/dL (8-22); CALCIUM 8.2 mg/dL (8.8-10.2); CHLORIDE 98 mmol/L (98-107); COSMO 272; CREATININE 5.6 mg/dL (0.5-0.9); ESTIMATED GFR 7; GLUCOSE 91 mg/dL (70-104); GOT 17 U/L (10-30); GPT 17 U/L (10-36); MAGNESIUM 1.7 mg/dL (1.5-2.7); POTASSIUM 4.7 mmol/L (3.5-5.1); SODIUM 133 mmol/L (136-145); TCO2 21 mmol/L (25-35); TOTAL BILIRUBIN < 0.15 mg/dL (0.20-1.00); TOTAL PROTEIN 6.3 g/dL (6.3-8.3)
[2019-10-26] MEDS ORDERED: XYLOCAINE-MPF 2% ONE (08:03)
[2019-10-26] MEDS ORDERED: DIPRIVAN 1% ONE (08:03)
[2019-10-26] MEDS ORDERED: AMIDATE ONE (08:23)
[2019-10-26] MEDS ORDERED: TESSALON PO PRN (08:28)
[2019-10-26] MEDS ORDERED: PLAVIX PO SCH (09:00)
[2019-10-26] MEDS ORDERED: NS 1,000 ML ONE (09:10)
[2019-10-26] MEDS ORDERED: XYLOCAINE 1%/EPI 1:100,000 ONE (09:10)
[2019-10-26] MEDS ORDERED: HEPARIN ONE (09:10)
[2019-10-26 09:22] LABS: BASO 2 % (0-1); LYMPHS 24 % (21-51); MONO 12 % (1-9); SEGS 62 % (42-75)
[2019-10-26 09:23] LABS: ANISOCYTOSIS 1+; HYPOCHROM 1+
--- NOTE | 2019-10-26 09:26 | PROGRESS NOTE ---
DATE: 10/26/2019 SUBJECTIVE: I have seen and examined Ms. Marino today. Ms. Marino refers to be doing well. She says she has some persistent cough and early this morning she had a lot of bleeding from her fistula. She is pending a surgical revision of the fistula this morning. OBJECTIVE: Vital signs: Blood pressure is 108/47, pulse of 64, respiration is 18, temperature is 98.5 degrees. General: Ms. Marino is a 74-year-old elderly female. She is in bed, no distress. HEENT: Mucosa is pink and moist. Anicteric. Acyanotic. Neck: Supple. Chest: Clear to auscultation. No crepitations. No rhonchi. Cardiovascular: Regular rate and rhythm. There is positive 2/6 murmur radiating to the neck. There is a port on the right upper chest. There is a fistula on the left arm, which is covered with sterile dressing. Abdomen: Soft. There is some midline surgical scar with an end ileostomy. Extremities: No pedal edema. REPRODUCTIVE ENDOCRINOLOGIST: Patient is awake, alert, and oriented. LABORATORY DATA: The patient has microcytic anemia. Chemistry is reviewed. Creatinine is 5.6. ASSESSMENT: 1. Left AV fistula, complicated with ulceration and bleeding. Patient is pending revision today. 2. Endstage renal disease on hemodialysis Monday, Monday, and Monday. 3. Status post ileostomy. 4. COPD currently not in exacerbation. 5. Hypertension controlled. 6. Cough. For now we will start Ms. Marino on symptomatic management and keep a very close eye on this. We will also put her on incentive spirometer. cc: Isrrael Blackmon MD
[2019-10-26] MEDS ORDERED: KEFZOL 1 GM/D5W 1 GM/50 ML IVPB ONE (09:32)
[2019-10-26] MEDS ORDERED: ZOFRAN ONE (10:06)
[2019-10-26] MEDS ORDERED: DECADRON ONE (10:06)
[2019-10-26] MEDS ORDERED: ZEMURON ONE (10:06)
[2019-10-26] MEDS ORDERED: PITRESSIN ONE (10:23)
[2019-10-26] MEDS ORDERED: ROBINUL ONE (10:43)
[2019-10-26] MEDS ORDERED: HEPARIN (DOSE) ONE (10:46)
[2019-10-26] MEDS ORDERED: KETAMINE ONE (11:04)
[2019-10-26] MEDS ORDERED: EPHEDRINE ONE (11:24)
[2019-10-26] MEDS: DILAUDID ONE ×2 (12:00→19:55)
--- NOTE | 2019-10-26 14:02 | CONSULTATION ---
DATE OF CONSULTATION: 10/26/2019 HISTORY OF PRESENT ILLNESS: Ms. Weston Marino is a 74-year-old white female, mother of Dr. Dexter Marino here in [place]. She has end-stage renal disease and requires chronic hemodialysis under the direction of Dr. Hollingsworth. Dr. Hollingsworth has been concerned about her AV fistula because she has some prolonged bleeding after dialysis in an area where she has a wound over her fistula. She was seen last Monday in our outpatient offices by Dr. Shaffer. Dr. Hollingsworth sent her to the emergency department yesterday for admission and re-evaluation of this AV fistula for bleeding after dialysis. PAST MEDICAL HISTORY: She had a history of ischemic colitis and abdominal surgery. She has had a right hemicolectomy with an end ileostomy. She has had a hysterectomy, cholecystectomy. She has been treated for left breast cancer. She has a left upper arm AV fistula. She has had right ankle surgery, left knee surgery. She has a history of COPD, end-stage renal disease with hemodialysis Monday, Monday, Monday, anemia of chronic disease. Anxiety disorder, GERD, gout, history of stroke, history of coronary artery disease, history of chronic diastolic congestive heart failure, hypertension, rheumatoid arthritis, obesity. ALLERGIES: No known drug allergies. MEDICATIONS: Plavix, Colace, folic acid, pravastatin, aspirin, calcium acetate, Pepcid, Zofran, Tylenol, Xanax, vitamin B, escitalopram, Lomotil, Prevacid, Antivert, melatonin, Remeron, Zantac, Zanaflex, Mycostatin powder. REVIEW OF SYSTEMS: A 14-point review of systems was performed and did not add to the history of present illness. FAMILY HISTORY: Reviewed with the patient and was noncontributory. PHYSICAL EXAMINATION: General: On exam, Ms. Marino is awake, cooperative. Vital Signs: Temperature 97.7 degrees, pulse rate 87, blood pressure of 97/55, O2 saturation 97%. HEENT: No jaundice. No oral lesions. Satisfactory dentition. Neck: No cervical or supraclavicular lymphadenopathy. Lines/tubes: She has a right-sided port. She has left arm AV fistula or graft. When I took the dressing off, she did bleed from the area of concern. Abdomen: Her abdomen was soft without tenderness. No costovertebral tenderness. Rectovaginal exams: Were not performed. Extremities: Se does have palpable femoral pulses. No significant peripheral edema. Neurological: She has no focal deficit. IMPRESSION: Bleeding from a left arm arteriovenous graft or fistula; I am uncertain of the anatomy of this arm graft. Evidently, it was placed 5 years ago. PLAN: I feel we should take her to surgery and certainly take care of this bleeding wound overlying her AV graft or fistula with possible revision of her access, left arm. I have discussed the procedure in detail with her at the bedside first floor, including risks of bleeding, infection, ruining her access and possible placement of PermCath. She understands the need for surgery and wants to proceed. cc: Poppy Brandon MD
[2019-10-26] MEDS: PROAMATINE PO SCH ×3 (14:13→16:37)
[2019-10-26] MEDS: REQUIP PO SCH ×2 (14:13→20:37)
[2019-10-26] MEDS: MIRALAX PO SCH (14:13)
[2019-10-26] MEDS: ASPIRIN EC PO SCH (14:13)
[2019-10-26] MEDS: FOLIC ACID PO SCH (14:14)
[2019-10-26] MEDS: PEPCID PO SCH ×2 (14:14→20:36)
[2019-10-26] MEDS: CULTURELLE PO SCH (14:14)
[2019-10-26] MEDS: CELEXA PO SCH (14:14)
[2019-10-26] MEDS: VICON-C PO SCH (14:14)
[2019-10-26] MEDS: ANTIVERT PO SCH ×2 (14:15→20:35)
[2019-10-26] MEDS: COLACE PO SCH (14:19)
[2019-10-26] MEDS: MYCOSTATIN POWDER TOP SCH ×2 (14:21→20:46)
[2019-10-26] MEDS: XANAX PO SCH ×2 (14:21→20:35)
--- NOTE | 2019-10-26 14:21 | OPERATIVE NOTE ---
PROCEDURE DATE: 10/26/2019 PREOPERATIVE DIAGNOSIS: Bleeding left upper arm loop arteriovenous graft. POSTOPERATIVE DIAGNOSIS: Bleeding left upper arm loop arteriovenous graft. PRINCIPAL PROCEDURE: Revision of left upper arm arteriovenous loop graft using an interposition 8 mm Holbrook-Jackson arteriovenous graft. SURGEON: Poppy Brandon MD. ANESTHESIA: General in addition to local anesthetic. ESTIMATED BLOOD LOSS: 30 mL. DRAINS: None. INDICATIONS: Ms. Weston Marino is a 74-year-old white female who has end-stage renal disease and requires chronic hemodialysis on Mondays, Wednesdays and Fridays. She has a left arm AV loop graft and there was an area of skin breakdown overlying the graft and she had prolonged bleeding in this area after dialysis and there they were scared that she was going to have a spontaneous bleed. We were asked to evaluate the graft and possibly revise it. FINDINGS: She had an upper arm AV loop graft. The arterial side of this graft was on the top of the arm and the venous side was on the medial aspect of the arm. She had an open wound overlying an area of the graft more distally and anteriorly in the left arm that would bleed if a scab or clot was knocked off. We closed this wound with a Prolene stitch and then revised this upper arm AV loop graft by placing an interposition graft on the arterial side of the loop graft which was on the anterior aspect of the left arm. The flow was reestablished through the loop graft. We left the segment of the old graft in her arm. There was no blood going along the graft that was exposed to the wound. PROCEDURE: The patient was brought to the operating room, placed supine, received general anesthesia, and was ventilated using the LMA. Initially, we placed a tourniquet left arm and prepped and draped the left arm. We never used the tourniquet. We took down the dressing overlying the left upper arm graft. It was not bleeding. Earlier in the day when I inspected the graft, it was bleeding. I placed a [id number] 4-0 Prolene stitch to close this wound so that there would not be bleeding as I worked on the AV graft. We took the tourniquet off the arm, it was never inflated and we took it off the arm and re-prepped and draped her left upper arm so that we could revise this left arm loop graft. I made 2 small incisions which were transverse overlying the graft. This was an AV loop graft in the left arm. I made an incision distally in the left arm overlying the graft and more proximally in the left arm overlying the graft and so I replaced about half of this loop graft, the half that was along the biceps muscle. The medial half of the AV loop graft had not been stuck. It was not aneurysmal or had any problems, and that was preserved. I used an interposition 8 mm graft to create a new arterial limb of the graft and defunctionalized the limb that was causing problems with bleeding. Through our distal incision, I isolated the segment of the graft and through our proximal incision, I isolated the segment of the graft using forceps and scissors. I used a right angle clamp and a large vessel loop to control the graft. I used a small 35-35 clamps to control inflow and outflow. The patient was given 3000 units of IV heparin. Prior to giving the heparin, I tunneled my new 8 mm Holbrook-Jackson graft using an Impra tunneler from 1 incision to the other. I began proximally. I divided the old graft and I sewed my interposition graft end-to-end to the arterial side of the graft. I used a 5-0 Prolene double arm stitch to sew this end-to-end. I then went down to the more distal incision. Again, I divided the graft and again, I performed an end-to-end double-layer of 5-0 Prolene sewn anastomosis. Prior to completing the 2nd anastomosis, I made sure that I had flow through the graft both proximally and distally. I did and this anastomosis was completed and flow was re- established through the graft. The defunctionalized limb of the graft was drained of any blood and I closed my incisions in layers. The first layer with 3-0 popoff Vicryl stitches to close the subcutaneous tissue, the skin was closed with a 4-0 Monocryl subcuticular stitch. Steri-Strips were applied followed by dry dressing and Kerlix lightly wrapped around the left arm. We decided against placing any Vas-Cath or PermCath because she had received heparin, and we will have to address that for Monday dialysis. She will go the recovery room and then plan to be readmitted to the floor. cc: Poppy Brandon MD
[2019-10-26] MEDS: NORCO-10 PO PRN (15:53)
[2019-10-26] MEDS: PHOSLO PO SCH (16:36)
--- NOTE | 2019-10-26 19:32 | NEPHROLOGY CONSULTATION ---
DATE: 10/26/2019 REASON FOR CONSULTATION: Assistance with management, evaluation and treatment. REQUESTING PROVIDER: SYEDA Lopez. HISTORY OF PRESENT ILLNESS: Ms. Marino is a 74-year-old white female who is currently on hemodialysis for management of stage 5D chronic kidney disease related to diabetes. She has multiple medical problems including cardiomyopathy chronic hypotension, history of cerebrovascular disease, etc. She has a left upper arm AV graft and has experienced a sentinel bleed event approximately 1 week ago. She was in dialysis yesterday, and there was an eroded ulcer overlying the graft, and the graft was visible in the bed of the ulcer. So her dialysis was completed, and she was transferred to [facility] for surgical management. She was evaluated by Dr. Brandon today and taken to the operating room, where she underwent revision of her left upper arm AV loop graft with an interposition 8 mm [place]-Jackson graft. This evening she is in good spirits. Her family is present, and she is laughing and eating and has no complaints. No shortness of breath. No nausea, vomiting, etc. PAST MEDICAL HISTORY: As above. MEDICATIONS: Reviewed. No changes. ALLERGIES: None. SOCIAL HISTORY: She resides in a local fpc facility. FAMILY HISTORY: Noncontributory. REVIEW OF SYSTEMS: Noncontributory. PHYSICAL EXAMINATION: Vital Signs: Blood pressure 110/45, heart rate 79, respirations 16, afebrile. General: Obese white female in no acute distress. Skin: Warm and dry. HEENT: Conjunctivae are pink and moist. Pupils equal, round. Oropharynx clear, edentulous. Tongue normal. Neck: Supple. Neck veins are not distended. Heart: Regular. No murmurs, rubs or gallops. Lungs: Have equal excursion, equal breath sounds. No crackles or wheezes. Abdomen: Obese, soft, nontender. Bowel sounds present. Extremities: Minimal edema. No clubbing, or cyanosis. Positive thrill and bruit in the left upper arm AV graft. IMPRESSION: 1. Chronic kidney disease 5D. We will continue her routine dialysis prescription. 2. Graft erosion. Appreciate Dr. Brandon's prompt intervention. Excellent flow in her revised graft. We will follow her hemoglobin. cc: Jose David Hollingsworth MD
[2019-10-26] MEDS: INCRUSE ELLIPTA INH SCH (19:54)
[2019-10-26] MEDS: REMERON PO SCH (20:35)
[2019-10-26] MEDS: MELATONIN PO SCH (20:36)
[2019-10-26] MEDS: PRAVACHOL PO SCH (20:36)
[2019-10-26] MEDS: DESYREL PO SCH (20:36)
[2019-10-26] MEDS: SEROQUEL PO SCH (20:37)
[2019-10-27] MEDS: NORCO-10 PO PRN ×3 (02:56→20:41)
[2019-10-27] MEDS: PHOSLO PO SCH ×3 (07:56→16:58)
[2019-10-27] MEDS: XANAX PO SCH ×2 (08:00→20:30)
[2019-10-27] MEDS: REQUIP PO SCH ×2 (08:00→20:30)
[2019-10-27] MEDS: ASPIRIN EC PO SCH (08:00)
[2019-10-27] MEDS: MIRALAX PO SCH (08:00)
[2019-10-27] MEDS: NUEDEXTA 20-10 MG CAPSULE PO SCH ×2 (08:00→20:29)
[2019-10-27] MEDS: CELEXA PO SCH (08:00)
[2019-10-27] MEDS: PEPCID PO SCH ×2 (08:00→20:31)
[2019-10-27] MEDS: FOLIC ACID PO SCH (08:00)
[2019-10-27] MEDS: COLACE PO SCH (08:00)
[2019-10-27] MEDS: PROAMATINE PO SCH ×3 (08:01→16:58)
[2019-10-27] MEDS: VICON-C PO SCH (08:01)
[2019-10-27] MEDS: CULTURELLE PO SCH (08:01)
[2019-10-27] MEDS: ANTIVERT PO SCH ×2 (08:01→20:31)
[2019-10-27] MEDS: MYCOSTATIN POWDER TOP SCH ×2 (10:53→20:51)
--- NOTE | 2019-10-27 12:15 | PROGRESS NOTE ---
DATE: 10/27/2019 Ms. Marino is now postop day 1 from revision of a left arm AV loop graft with an interposition 8 mm [place]-Jackson graft because of bleeding. It appears that this graft continues to have flow in it this morning. She had some swelling involving her left arm. We may have to put temporary access for 3 weeks prior to using this revised AV graft. Will plan on performing that tomorrow. cc: Poppy Brandon MD
--- NOTE | 2019-10-27 12:27 | PROGRESS NOTE ---
DATE: 10/27/2019 SUBJECTIVE: I have seen and examined Ms. Marino. Today, she refers to be doing well. She said the Tessalon pills are not working well for her cough and she thinks that she is also coming down with a sinus. OBJECTIVE: Vital Signs: Blood pressure 94/40, pulse of 71, respirations are 16, temperature is 98.0 degrees. General Examination: Ms. Marino is a 74-year-old, elderly, female. She is in bed. No distress. HEENT: Mucosa is pink and moist. Anicteric. Acyanotic. Neck: Supple. Chest: Clear to auscultation. No crepitations. No rhonchi. Cardiovascular: Regular rate and rhythm. There is a 2/6 murmur radiating to the neck. GI: Abdomen is soft. Midline surgical scar. There is an end ileostomy. The bag has fecal material. 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 The patient has a port in the right upper chest wall. There is an AV fistula in the left arm, which was revised yesterday. No lab work for this morning. ASSESSMENT: 1. Left arteriovenous fistula ulceration with bleeding. This was revised yesterday. Please refer to the details of the operative note by Dr. Brandon. 2. Endstage renal disease, on hemodialysis Monday, Monday, and Monday. Nephrology is on board. 3. Status post ileostomy. 4. Chronic obstructive pulmonary disease, currently not in exacerbation. 5. Hypertension, controlled. 6. Cough. We will continue with incentive spirometer. I have changed her Tessalon to guaifenesin We have added also Lucrecia. 7. Macrocytic anemia. We will check her B12 and folate in the morning. cc: Isrrael Blackmon MD [facility]
[2019-10-27] MEDS: ROBITUSSIN-AC PO PRN ×2 (13:44→20:42)
[2019-10-27] MEDS: ALLEGRA PO SCH (20:29)
[2019-10-27] MEDS: MELATONIN PO SCH (20:29)
[2019-10-27] MEDS: DESYREL PO SCH (20:29)
[2019-10-27] MEDS: REMERON PO SCH (20:30)
[2019-10-27] MEDS: PRAVACHOL PO SCH (20:30)
[2019-10-27] MEDS: SEROQUEL PO SCH (20:31)
[2019-10-27] MEDS: INCRUSE ELLIPTA INH SCH (20:50)
[2019-10-28] MEDS: NORCO-10 PO PRN ×3 (04:14→19:49)
[2019-10-28 05:58] LABS: HEMATOCRIT 27.9 % (37.0-47.0); HEMOGLOBIN 8.5 g/dL (12.0-16.0); MCH 32.2 PG (27-31); MCHC 30.5 g/dL (33-37); MCV 105.7 FL (81-99); RBC 2.64 XMIL (4.2-5.4); RDW 15.4 % (11.5-14.5); WBC 9.05 X1000 (4.8-10.8)
[2019-10-28 06:13] LABS: ALBUMIN 3.3 g/dL (3.5-5.0); CALCIUM 8.7 mg/dL (8.8-10.2); CREATININE 8.9 mg/dL (0.5-0.9); PHOSPHORUS 6.3 mg/dL (2.7-4.5); POTASSIUM 5.6 mmol/L (3.5-5.1)
[2019-10-28 06:18] LABS: IRON SATURATION 18 %; TIBC 279 ug/dL; TOTAL IRON 49 ug/dL (49-151); UNBOUND IRON 230 ug/dL (112-346)
[2019-10-28] MEDS ORDERED: NS 2,000 ML MISC PRN ×2 (06:18→15:09)
[2019-10-28] MEDS ORDERED: TIGHT: 0.2 ML/HR FOR DIALYSIS MISC PRN (06:18)
[2019-10-28] MEDS ORDERED: HEPARIN IV PRN (06:18)
[2019-10-28 06:50] LABS: FERRITIN 1002 ng/mL (13-150)
--- NOTE | 2019-10-28 07:41 | PROGRESS NOTE ---
DATE: 10/28/2019 Ms. Marino underwent revision of a left arm AV loop graft. There appears to be a palpable pulse within this graft. She does have some pain and swelling involving the left arm because of tunneling of her interposition graft. She is due for dialysis today, and either the dialysis nurses can use the medial aspect of the graft or she will need temporary access. She has been made n.p.o. in case she needs a PermCath. The new graft could not be stuck for at least 3 weeks. cc: Poppy Brandon MD
[2019-10-28] MEDS ORDERED: XYLOCAINE-MPF 2% INJ ONE (08:40)
[2019-10-28] MEDS: NUEDEXTA 20-10 MG CAPSULE PO SCH ×2 (11:14→21:45)
[2019-10-28] MEDS: ALLEGRA PO SCH ×2 (11:14→21:45)
[2019-10-28] MEDS: VICON-C PO SCH (11:15)
[2019-10-28] MEDS: REQUIP PO SCH ×2 (11:15→21:45)
[2019-10-28] MEDS: PROAMATINE PO SCH ×3 (11:15→16:30)
[2019-10-28] MEDS: CELEXA PO SCH (11:15)
[2019-10-28] MEDS: CULTURELLE PO SCH (11:15)
[2019-10-28] MEDS: ANTIVERT PO SCH ×2 (11:15→21:45)
[2019-10-28] MEDS: PEPCID PO SCH ×2 (11:16→21:45)
[2019-10-28] MEDS: COLACE PO SCH (11:16)
[2019-10-28] MEDS: MIRALAX PO SCH (11:16)
[2019-10-28] MEDS: XANAX PO SCH ×2 (11:16→21:44)
[2019-10-28] MEDS: ASPIRIN EC PO SCH (11:17)
[2019-10-28] MEDS: FOLIC ACID PO SCH (11:17)
[2019-10-28] MEDS: PHOSLO PO SCH ×3 (11:27→16:30)
[2019-10-28] MEDS: MYCOSTATIN POWDER TOP SCH ×2 (11:27→21:46)
[2019-10-28] MEDS ORDERED: XYLOCAINE 1%/EPI 1:100,000 ONE (13:23)
[2019-10-28] MEDS ORDERED: DIPRIVAN 1% ONE (13:24)
[2019-10-28] MEDS ORDERED: NS 250 ML ONE (13:24)
[2019-10-28] MEDS ORDERED: HEPARIN ONE (13:24)
[2019-10-28] MEDS ORDERED: XYLOCAINE-MPF 2% ONE (13:24)
[2019-10-28] MEDS ORDERED: KEFZOL 1 GM/D5W 1 GM/50 ML IVPB ONE (13:54)
--- NOTE | 2019-10-28 14:14 | PROGRESS NOTE ---
DATE: 10/28/2019 SUBJECTIVE: This morning Ms. Marino refers to be doing a lot better. She said her coughing has significantly improved. She also said they tried doing dialysis however the left arm AV fistula was nonfunctional. She is pending a possible either Vas-Cath or a tunneled catheter for dialysis needs. OBJECTIVE: Vital signs: Blood pressure is 137/115, pulse of 97, respiration is 18, temperature 97.9 degrees. General: Ms. Marino is a 74-year-old elderly female she is in bed, she is not in any cardiopulmonary distress. Mucosa is pink and moist. Anicteric. Acyanotic. Neck: Supple. Respiratory: There is good air entry bilateral. No crepitations, no rhonchi. Cardiovascular: Regular rate and rhythm. There is a 2/6 murmur radiating to the neck. Abdomen: Soft. There is a midline surgical scar. There is an end ileostomy, the ostomy bag has fecal material. 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 There is a port on the right upper chest wall. There is an AV fistula on the left arm which is slightly the arm looks relatively more swollen than yesterday. LABORATORY DATA: WBC is 9.05, hemoglobin is 8.5, platelet count of 223,000. Chemistry is also reviewed, all consistent with abnormality related to the renal failure. ASSESSMENT: 1. Left arteriovenous fistula ulceration with bleeding. This was revised 3 days ago. Unfortunately this morning it would not function so there is a plan to have her on access. 2. Endstage renal disease on hemodialysis Monday, Monday and Monday. Nephrology is on board. Patient is pending treatment today. 3. Status post ileostomy. This is functional. 4. Chronic obstructive pulmonary disease currently not in exacerbation. 5. Hypertension stable. 6. Cough improved. 7. Macrocytosis with normal B12 and folate levels. So in general I think Ms. Marino is doing fairly okay. She is still pending an access for dialysis. We are going to follow up with further recommendations from Nephrology and surgery. DISPOSITION: Ms. Marino is a resident of [facility], whenever she is medically stable she will be transferred back to [facility]. cc: Isrrael Blackmon MD [facility]
[2019-10-28] MEDS ORDERED: EPHEDRINE ONE (14:18)
--- NOTE | 2019-10-28 15:08 | OPERATIVE NOTE ---
PROCEDURE DATE: 10/28/2019 PREOPERATIVE DIAGNOSIS: End-stage renal disease requiring chronic hemodialysis. POSTOPERATIVE DIAGNOSIS: End-stage renal disease requiring chronic hemodialysis. PRINCIPAL PROCEDURE: Right internal jugular PermCath using ultrasound and fluoroscopy. SURGEON: Poppy Brandon MD. ANESTHESIA: Local with IV sedation. ESTIMATED BLOOD LOSS: 25 mL. DRAINS: None. INDICATIONS: Ms. Weston Marino is a 74-year-old white female who has a left arm loop AV graft. I had to revise this graft using an interposition graft over the weekend because of bleeding. This morning the dialysis center could not access the old part of the graft and therefore we were asked to place a temporary access for hemodialysis. DESCRIPTION OF PROCEDURE: The patient was brought to the operating room, placed supine, she received IV sedation. Her right neck, shoulder and anterior chest were prepped and draped in a sterile field. She had a port on her right chest and I believe that was a subclavian vein placed port. We worked around this port so that we could place a right internal jugular PermCath. She has a left-sided arm graft. We began the procedure by using local anesthetic and the ultrasound to identify the internal jugular vein between the 2 heads of the right sternocleidomastoid muscle. She had a scar in this area at the base of her neck so we had to go higher in the neck and used an 18-gauge needle to access the right internal jugular vein. We had to use a Glidewire to get the wire to go into the superior vena cava. The needle was removed. We checked the position of our guidewire with fluoro and it was in the correct position. I made a counterincision on the anterior right chest and I used a blunt tunneler and a 19 cm in total length precurved PermCath and tunneled it from the chest incision to the neck incision. I then used sequential dilators over the Glidewire and placed them into the superior vena cava. Then I placed a dilator and sheath over the Glidewire into the superior vena cava. The dilator and guidewire were removed and through the sheath I placed my distal end of my PermCath into the superior vena cava and peeled away the sheath. Both ports were functioning well and I flushed them with heparin saline. I secured the catheter at its exit site with two 2-0 nylon stitches and I closed the incision at the neck with a 4-0 Monocryl subcuticular stitch. Again, fluoroscopy documented a good placement of the PermCath in the superior vena cava with a nice curve. We were happy with its position and function. Dressings will be applied. She will go to the recovery room and then return to her floor or go to dialysis. cc: Poppy Brandon MD
--- NOTE | 2019-10-28 15:38 | PROVIDER PROGRESS NOTE ---
Progress Note Subjective: She is attempting to empty out her own colostomy bag. She denies any uremic complaints. Objective: temperature 98.0, pulse 69, respirations 19, blood pressure 104/37, 02 sat 95% on room air. General: Elderly White female lying in bed in no acute distress. HEENT: normocephalic, atraumatic, pupils equal and reactive, mucous membranes moist. Skin: warm and dry. Neck: supple, no JVD Cardiovascular: S1S2, soft venous hum. regular rate and rhythm. Respiratory: lungs clear with equal air entry anteriorly Abdomen: soft, nontender, nondistended. Bowel sounds present. Colostomy noted. : not inspected Extremities: no clubbing, cyanosis, or edema Neurological: alert and oriented to person place and time. Labs: WBC 9.05, hemoglobin 8.5, hematocrit 27.9, platelet count 223, sodium 127, potassium 5.6, chloride 94, carbon dioxide 18, BUN 54, creatinine 8.9. Intake 480ml , output 2ml Impression: Chronic kidney disease 5D. She will have her routine hemodialysis today with a 2K bath to her last hemodialysis dry weight for 3.5 hours. Staff will attempt to use her non revised side of the graft away from the original erosion area. Unable to cannulate. Roma placed a tunneled catheter. Graft erosion. Revised left arm AV loop graft. Palpable thrill noted. Blood pressure. Stable. Fluid volume. Euvolemic. Anemia. Low, does not meet transfusion criteria. Electrolytes and acid base balance. Manage with hemodialysis. Nutrition. She was made NPO for possible catheter placement. Medication review. Darleen LEMONS
[2019-10-28] MEDS: INCRUSE ELLIPTA INH SCH (16:27)
[2019-10-28] MEDS: REMERON PO SCH (21:44)
[2019-10-28] MEDS: MELATONIN PO SCH (21:45)
[2019-10-28] MEDS: SEROQUEL PO SCH (21:45)
[2019-10-28] MEDS: PRAVACHOL PO SCH (21:45)
[2019-10-28] MEDS: DESYREL PO SCH (21:45)
[2019-10-28] MEDS: TYLENOL WITH CODEINE #3 PO PRN (23:10)
[2019-10-29] MEDS: PHOSLO PO SCH ×3 (07:56→16:37)
[2019-10-29] MEDS: VICON-C PO SCH (08:01)
[2019-10-29] MEDS: CULTURELLE PO SCH (08:01)
[2019-10-29] MEDS: PEPCID PO SCH ×2 (08:01→21:54)
[2019-10-29] MEDS: ALLEGRA PO SCH ×2 (08:01→21:53)
[2019-10-29] MEDS: NUEDEXTA 20-10 MG CAPSULE PO SCH ×2 (08:01→21:53)
[2019-10-29] MEDS: COLACE PO SCH (08:01)
[2019-10-29] MEDS: ASPIRIN EC PO SCH (08:01)
[2019-10-29] MEDS: XANAX PO SCH ×2 (08:01→21:54)
[2019-10-29] MEDS: NORCO-10 PO PRN (08:01)
[2019-10-29] MEDS: MIRALAX PO SCH (08:01)
[2019-10-29] MEDS: FOLIC ACID PO SCH (08:02)
[2019-10-29] MEDS: CELEXA PO SCH (08:02)
[2019-10-29] MEDS: REQUIP PO SCH ×2 (08:02→21:53)
[2019-10-29] MEDS: ANTIVERT PO SCH ×2 (08:02→21:53)
[2019-10-29] MEDS: PROAMATINE PO SCH ×3 (08:02→16:37)
[2019-10-29] MEDS: MYCOSTATIN POWDER TOP SCH ×2 (10:25→21:54)
[2019-10-29 11:26] LABS: CREATININE 5.3 mg/dL (0.5-0.9); PHOSPHORUS 4.1 mg/dL (2.7-4.5); POTASSIUM 4.7 mmol/L (3.5-5.1)
--- NOTE | 2019-10-29 16:13 | Diag Imaging Result Doc PS360 ---
EXAM: US RENAL 2 (RETROPER) COMPLETE 10/29/2019 HISTORY: decreased renal function TECHNIQUE: Renal ultrasound COMMENT: The urinary bladder is not demonstrated. The kidneys are atrophic measuring 7 x 2.8 x 3.8 on the right and 7.1 x 3 x 3.4 cm on the left. There is no evidence of hydronephrosis. The kidneys are hyperechoic in appearance. Compared to the previous study of 02/22/2011 the kidneys are more hyperechoic and smaller. IMPRESSION: Bilateral renal atrophy. Electronically signed by Robi Christy 10/29/2019 4:11 PM
[2019-10-29] MEDS: INCRUSE ELLIPTA INH SCH (17:33)
--- NOTE | 2019-10-29 19:26 | PROVIDER PROGRESS NOTE ---
Progress Note Subjective: She voices have issues with hypotension. She denies any increase in shortness of breath, dizziness, chest pain, n/v, or chills and fever. She is sitting up eating breakfast. Objective: temperature 98.6, pulse 76, respirations 17, blood pressure 87/37, O2 sat 100% and room air. General: Elderly White female lying in bed in no acute distress. HEENT: normocephalic, atraumatic, pupils equal and reactive, mucous membranes moist. Skin: warm and dry. Neck: supple, no JVD Cardiovascular: S1S2, soft venous hum. regular rate and rhythm. Respiratory: lungs clear with equal air entry anteriorly Abdomen: soft, nontender, nondistended. Bowel sounds present. Colostomy noted. : not inspected Extremities: no clubbing, cyanosis, or edema Neurological: alert and oriented to person place and time. Labs: intake 780, output 2240. Impression: Chronic kidney disease 5D. She had her routine hemodialysis yesterday through a right tunneled catheter to the chest wall with 2233 mL ultrafiltration. She did have a few episodes of hypotension. This is usual for her in an outpatient setting as well. Surveillance renal u/s negative. rg Graft erosion. Revised left arm AV loop graft. Palpable pulse noted. Continue to monitor. Blood pressure. Varies. Recent episodes of hypotension. Will monitor. Fluid volume. Euvolemic. Anemia. Low, does not meet transfusion criteria. Electrolytes and acid base balance. Manage with hemodialysis. Nutrition. Eating. Medication review. Darleen LEMONS
[2019-10-29] MEDS: REMERON PO SCH (21:52)
[2019-10-29] MEDS: PRAVACHOL PO SCH (21:53)
[2019-10-29] MEDS: SEROQUEL PO SCH (21:53)
[2019-10-29] MEDS: DESYREL PO SCH (21:53)
[2019-10-29] MEDS: MELATONIN PO SCH (21:54)
[2019-10-29] MEDS: TYLENOL WITH CODEINE #3 PO PRN (21:59)
[2019-10-30] MEDS: PHOSLO PO SCH ×2 (07:44→12:26)
[2019-10-30] MEDS ORDERED: TIGHT: 0.2 ML/HR FOR DIALYSIS MISC PRN (08:19)
[2019-10-30] MEDS ORDERED: NS 2,000 ML MISC PRN (08:19)
[2019-10-30 08:27] VITALS: BP 97/43
[2019-10-30] MEDS: ROBITUSSIN-AC PO PRN (10:35)
--- NOTE | 2019-10-30 11:25 | DISCHARGE SUMMARY ---
ADMISSION DATE: 10/25/2019 DISCHARGE DATE: 10/30/2019 LENGTH OF STAY: The patient's length of stay was 5 days. DISPOSITION: Back to [facility]. FOLLOWUP: 1. Dr. Hollingsworth. 2. Dr. Brandon. CONSULTATIONS DURING THIS ADMISSION: 1. Nephrology was consulted, and the patient was seen by Dr. Hollingsworth. 2. Surgery was consulted, and the patient was seen by Dr. Brandon. INVASIVE PROCEDURES DONE DURING THIS ADMISSION: 1. Revision of the left upper arm arteriovenous loop graft was done by Dr. Brandon on 10/26/2019. Unfortunately, that continued not to be working well, so a second procedure was done. 2. A right internal jugular PermCath using ultrasound and fluoroscopy was placed by Dr. Brandon on 10/28/2019. ADMISSION DIAGNOSES: 1. Left arteriovenous fistula ulceration. 2. End-stage renal disease. 3. Ileostomy. 4. History of chronic obstructive pulmonary disease. DIAGNOSES AT THE TIME OF DISCHARGE: 1. Left arteriovenous fistula ulceration with bleeding. The patient is status post revision. Unfortunately, the graft continues to be nonfunctional, so the patient underwent a PermCath placement and has been using that for dialysis. 2. End-stage renal disease on hemodialysis Monday, Monday, and Monday. 3. Status post ileostomy. 4. Chronic obstructive pulmonary disease, currently not in exacerbation. 5. Hypertension. 6. Cough during the hospital course, resolved. 7. Microcytosis with normal B12 and folate levels. 8. Chronic hypotension. DISCHARGE MEDICATIONS: 1. Pravastatin 40 mg p.o. every night at bedtime. 2. Clopidogrel 75 mg p.o. daily. 3. Folic acid 1 mg p.o. daily. 4. Colace 100 mg p.o. daily. 5. Aspirin 81 mg p.o. daily. 6. Famotidine 20 mg b.i.d. 7. Ondansetron 4 mg p.o. every 6 hours p.r.n. 8. Calcium acetate. 9. Acetaminophen. 10. Midodrine 10 mg p.o. 3 times per day. 11. Tizanidine 4 mg p.o. every 8 hours. 12. Alprazolam 0.25 b.i.d. 13. Mirtazapine 50 mg 1/2 tablet daily. 14. Trazodone 25 mg p.o. every night at bedtime. 15. Ropinirole 2 mg p.o. b.i.d. PRESENTING COMPLAINT: Ulceration and bleeding from the left arteriovenous fistula. HISTORY OF PRESENTING COMPLAINT: Ms. Marino is a 74-year-old elderly female known to have end-stage renal disease on hemodialysis on Monday, Monday, Monday. She went to have a regular dialysis and was found to have some bleeding at the fistula, which was uncontrollable. She was brought to the emergency room for further medical care. HOSPITAL COURSE: Ms. Marino was evaluated in the ER and was admitted. Surgery was consulted. Patient was seen by Dr. Brandon, who took her in to the OR on September. There was a revision of the left upper arm AV fistula loop graft using an interposition [place]-Jackson arteriovenous graft. Postoperatively, the graft was accessed for dialysis. Unfortunately, it was successful. A decision was made to put in a PermCath, which was successfully also done by Dr. Brandon. Postoperatively, dialysis was done. This morning there is another session going on. Ms. Marino refers to be doing a lot better. Bleeding has completely stopped. She did have a couple of episodes of low blood pressure, but she was completely asymptomatic. She is known to have chronic hypotension, and she is on midodrine. Currently, her vital signs, her blood pressure is 97/43, pulse of 73, respirations 20, temperature 98.2 degrees. We think she is stable enough to be discharged. FOLLOWUP: She is going to follow up with Dr. Brandon and Dr. Hollingsworth. All the discharge instructions have been discussed with her and she voiced understanding. TIME SPENT: The time spent for discharge is 38 minutes. cc: MD Poppy Terrazas MD Reginald D. Gladish, MD
[2019-10-30] MEDS: PROAMATINE PO SCH (12:32)
[2019-10-30] MEDS: XANAX PO SCH (12:32)
[2019-10-30] MEDS: PEPCID PO SCH (12:33)
[2019-10-30] MEDS: CULTURELLE PO SCH (12:33)
[2019-10-30] MEDS: CELEXA PO SCH (12:34)
[2019-10-30] MEDS: ANTIVERT PO SCH (12:34)
[2019-10-30] MEDS: VICON-C PO SCH (12:34)
[2019-10-30] MEDS: ASPIRIN EC PO SCH (12:34)
[2019-10-30] MEDS: COLACE PO SCH (12:34)
[2019-10-30] MEDS: FOLIC ACID PO SCH (12:34)
[2019-10-30] MEDS: REQUIP PO SCH (12:34)
[2019-10-30] MEDS: ALLEGRA PO SCH (12:34)
[2019-10-30] MEDS: NUEDEXTA 20-10 MG CAPSULE PO SCH (12:35)
[2019-10-30] MEDS: MIRALAX PO SCH (12:35)
[2019-10-30] MEDS: MYCOSTATIN POWDER TOP SCH (12:35)
--- NOTE | 2019-10-30 16:13 | PROVIDER PROGRESS NOTE ---
Progress Note Subjective: She denies any complaints. She voices going home today. Objective: temperature 98.2, pulse 76, respirations 20, blood pressure 97/43, 02 sat 97% on room air. General: Elderly White female lying in bed in no acute distress. HEENT: normocephalic, atraumatic, pupils equal and reactive, mucous membranes moist. Skin: warm and dry. Neck: supple, no JVD Cardiovascular: S1S2, soft venous hum. regular rate and rhythm. Respiratory: lungs clear with equal air entry anteriorly Abdomen: soft, nontender, nondistended. Bowel sounds present. Colostomy noted. : not inspected Extremities: no clubbing, cyanosis, or edema Neurological: alert and oriented to person place and time. Labs: intake 480, output zero. Impression: Chronic kidney disease 5D. She will have her routine hemodialysis treatment with the 2K bath and attempt ultrafiltration to her last outpatient dry weight. We anticipate her discharge after she completes her dialysis treatment. Graft erosion. Revised left arm AV loop graft. Palpable pulse noted. Continue to monitor. Blood pressure. Varies with hypotension. Currently stable. Fluid volume. Euvolemic. Anemia. Low, will check in outpatient setting. Electrolytes and acid base balance. Manage with hemodialysis. Nutrition. Adequate. Medication review. No changes. rg
--- NOTE | 2019-11-02 08:04 | ECHO REPORT ---
ORDER DATE: 10/29/2019 INTERPRETING PHYSICIAN: Moncho Story MD. ECHOCARDIOGRAPHIC MEASUREMENTS: 1. Interventricular septum 1.6. 2. Left ventricular posterior wall 1.2. 3. Diastolic diameter 4.4 4. Left atrium 4.0. 5. Aorta 3.3. FINDINGS: 1. There is left atrial enlargement. 2. The aortic valve leaflets are calcified. 3. Tricuspid valve was normal. 4. Mitral valve was normal. There is mild mitral annular calcification. 5. Normal left ventricular cavity size. Concentric left ventricular hypertrophy. Estimated ejection fraction of 65%. 6. Peak velocity across the aortic valve was 3.4 m/sec with a maximum gradient of 45 mmHg, mean gradient of 25 mmHg. Aortic valve area of 1.4 cm, there is moderate aortic stenosis associated with mild aortic regurgitation. 7. There is mild tricuspid regurgitation. Peak velocity across the tricuspid valve was 2.4 m/sec. Pulmonary artery systolic pressure of 30 to 36 mmHg. 8. There is grade 2 diastolic dysfunction. 9. There is no pericardial effusion or obvious intracardiac mass or thrombus seen. cc: MD Sonia De CRNP
== END 2019-10-30 13:41 | DRG 252 ==
LOC: ED 10:50 → EDIPHOLD 12:58 → 1N 16:58
PROVIDERS: ATTEND Internal Medicine